=== PATIENT | female | born 1935 | race Caucasian/White ===

== ENCOUNTER 2020-02-04 09:55 | Outpatient (CLI) | payer MEDICARE, SELFPAY ==
[2020-02-04 10:28] LABS: Hematocrit 39.8 % (37.0-47.0); Hemoglobin 12.5 g/dL (12.0-15.0); Mean Corpuscular HGB Conc 31.4 g/dl (32-36); Mean Corpuscular Hemoglobin 28.2 pg (26-34); Mean Corpuscular Volume 89.6 fl (80-100); Mean Platelet Volume 10.9 fl (7.4-10.4); Platelet Count Result 203 k/mm3 (150-375); Red Blood Count 4.44 M/mm3 (4.2-5.4); Red Cell Distribution Width 13.8 % (11.5-14.5); White Blood Count 4.5 K/mm3 (4.5-10.0)
[2020-02-04 10:46] LABS: Alanine Aminotransferase 15 U/L (4-35); Albumin Level 4.3 g/dL (3.5-5.1); Alkaline Phosphatase 65 U/L (38-126); Anion Gap 4 mmol/L (8-16); Aspartate Amino Transferase 29 U/L (14-36); Bilirubin,Total 0.8 mg/dL (0.2-1.3); Blood Urea Nitrogen 22 mg/dL (7-17); Calcium 9.8 mg/dL (8.4-10.2); Carbon Dioxide 32 mmol/L (22-30); Chloride 101 mmol/L (98-107); Estimated Glomerular Filt Rate 43; Glucose 104 mg/dL (65-105); Potassium 4.7 mmol/L (3.4-5.0); Sodium 137 mmol/L (137-145)
[2020-02-04 11:51] LABS: Folic Acid > 20.0 ng/mL (2.76->20)
== END 2020-02-04 09:56 | disposition home or self-care (01) ==
PROVIDERS: PCP Physician Assistant; Visit Provider Physician Assistant
DX: E03.9 Hypothyroidism, unspecified (principal); R53.83 Other fatigue; I10 Essential (primary) hypertension
CPT/HCPCS: 36415; 80053; 82607; 82746; 84439; 84443; 85027

== ENCOUNTER 2020-04-01 17:52 | Emergency (ER) | payer MEDICARE, SELFPAY ==
[2020-04-01] VITALS (10 sets, daily range): BP systolic 142–167; BP diastolic 62–79; PULSE 74–78; RESP 16–18; TEMP 36.6; O2SAT 96–100
--- NOTE | ~2020-04-01 | CT_ITS ---
EXAMINATION: CT pelvis wo con DATE: 04/01/2020 20:12 INDICATION: Pelvic pain post fall TECHNIQUE: High resolution computed tomography (CT) of the pelvis was performed without intravenous c ontrast. Additional sagittal and coronal reconstructions were performed. Automated exposure control a nd iterative reconstruction technique were employed. The dose-length product was 326.88 mGy-cm. COMPARISON: None FINDINGS: Nondisplaced fractures of the left superior and inferior pubic rami, the superior pubic ramus fractur e extending to the pubic body. No other fractures identified. Partially visualized lumbar dextroscoli osis with severe lower lumbar spondylosis. Mild bilateral hip and sacroiliac osteoarthritis. Changes of likely prior appendectomy. There are few diverticula along the descending and sigmoid colon withou t adjacent inflammatory change to suggest diverticulitis. No bowel obstruction. Visualized caudal asp ect of the right kidney and right hepatic lobe are normal. Bladder is normal. The uterus is not ident ified and has likely been surgically resected. No free fluid in the pelvis. Thickening of the left ob turator internus muscle likely representing hematoma related to the fracture. No pathologically enlar ged pelvic or inguinal lymphadenopathy. IMPRESSION: 1. Nondisplaced left superior and inferior pubic rami fractures. Reviewed, dictated and finalized at [facility]. 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
--- NOTE | ~2020-04-01 | XR_ITS ---
EXAMINATION: XR hip LT 2V w AP pelvis DATE: 04/01/2020 18:41 INDICATION: Left hip/groin pain post fall TECHNIQUE: Anteroposterior view of the pelvis and anteroposterior and frog-leg lateral views of the l eft hip were obtained. COMPARISON: CT abdomen and pelvis dated 02/19/2019 FINDINGS: Nondisplaced fractures at the junction of the left superior pubic ramus and pubic body and at the lef t inferior pubic ramus. Lumbar dextroscoliosis with severe lower lumbar spondylosis. Mild polyarticul ar osteoarthritis at the bilateral hip and sacroiliac joints. Cholecystectomy clips in right upper qu adrant. IMPRESSION: 1. Minimally displaced fractures at the left inferior pubic ramus and junction of the left superior r amus and pubic body. Reviewed, dictated and finalized at location . 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 Minimally displaced fractures at the left inferior pubic ramus and junction of the left superior ramus and pubic body.
--- NOTE | 2020-04-01 18:45 | PC.NURSE ---
patient brought back to ED room 4 with c/o left leg pain after ground level fall today in her home. see triage notes. alert. oriented. assessments documented. waiting for further orders from provider.
[2020-04-01] MEDS: MORPHINE SULFATE (*CRX) 4 MG/ML INJ IV PUSH ×2 (20:05→20:50)
--- NOTE | 2020-04-01 20:06 | PC.NURSE ---
SL inserted. morphine given as ordered. patient to CT via stretcher. patient and daughter updated on current treatment plan.
--- NOTE | 2020-04-01 20:10 | ED.LOWEXIN ---
HPI - Extremity Injury (Lower) General Chief Complaint: Extremity Injury, Lower Stated Complaint: FALL-HIP PAIN Time Seen by Provider: 04/01/20 19:14 History of Present Illness HPI Narrative: Patient is a 84-year-old female that presents the emergency department with chief complaint of left hip pain. Patient reports that she slipped on a piece of paper on the floor and landed on the ground. The patient reports she has no lacerations denies head pain denies neck pain denies loss of consciousness. Patient states she has pain that is worse with movement in her left leg feels that the pain localizes to her left groin. Patient denies shortening and rotation of her lower extremity Related Data Home Medications Medication Instructions Recorded Confirmed calcium carbonate 600 mg(1,500 1 tablet PO DAILY 07/24/19 02/03/20 mg)-vitamin D3 800 unit chewable tablet Allergies Allergy/AdvReac Type Severity Reaction Status Date / Time Sulfa (Sulfonamide Allergy Severe Swelling Verified 02/11/20 13:25 Antibiotics) aspirin Allergy Unknown stomach Verified 02/11/20 13:25 pain- Adult ASA ciprofloxacin Allergy Unknown nausea/vomi Verified 02/11/20 13:25 t metronidazole Allergy Unknown nausea/vomi Verified 02/11/20 13:25 t naproxen Allergy Unknown nausea/vomi Verified 02/11/20 13:25 t Penicillins Allergy Unknown ,swelling, Verified 02/11/20 13:25 vomit propoxyphene Allergy Unknown nausea/vomi Verified 02/11/20 13:25 t Review of Systems Review of Systems: Narrative: CONSTITUTIONAL: Denies fever, chills, or sweats. EYES: Denies visual changes, redness, or discharge. ENT: Denies rhinorrhea, congestion, sore throat, or otalgia. CARDIOVASCULAR: Denies chest pain, palpitations, or edema. RESPIRATORY: Denies cough or dyspnea. GASTROINTESTINAL: Denies abdominal pain, nausea, vomiting, or diarrhea. GENITOURINARY: Denies dysuria or hematuria. SKIN: Denies rash or itching. MUSCULOSKELETAL: Denies back pain, joint pain, or myalgia. NEUROLOGIC: Denies headache, numbness, or weakness. PSYCHIATRIC: Denies anxiety or depression. All systems reviewed & are unremarkable except as noted in HPI and below PMFSH Family History Family History Father Patient's father is in good health Sibling Patient's sister is in good health Patient's brother is in good health Mother Cerebrovascular accident Social History Social History Smoking packs per day: 1 Smoking cigarettes per day: 20.0 Years smoked: 20 Smoking pack-years: 20.00 Smoking status: Former smoker Second hand tobacco smoke exposure: No Smoking end date: 05/15/06 Alcohol intake: never Substance use: never Comments Patient has history of peripheral neuropathy and hypertension Social history the patient lives at home with her Exam Narrative: Exam Narrative: GENERAL: Well-appearing, well-nourished, and in no acute distress. HEAD: Normocephalic, atraumatic. EYES: PERRLA and EOMI. ENT: Nares clear, no rhinorrhea or epistaxis. Mucous membranes moist. NECK: Supple. CHEST: Clear to auscultation. No respiratory distress. HEART: Regular rate and rhythm. No murmur heard. Normal peripheral pulses. ABDOMEN: Soft, nontender, nondistended, normal active bowel sounds. EXTREMITIES: Normal range of motion. No edema. Patient has tenderness to palpation in the left pelvic region SKIN: Warm, dry, no rash. NEURO: No focal deficits. Alert and oriented x3. PSYCH: Normal mood and affect. Course Course Emergency Course: Plain film x-rays of the left hip showed a fracture of the pelvis but showed no hip fracture, CT scan of the pelvis showed a inferior and superior pubic rami fracture but no other fractures present Patient was able to ambulate without difficulty Vital Signs Vital signs: Vital Signs Temperature
--- NOTE | 2020-04-01 21:27 | PC.NURSE ---
patient up with assist x 1. ambulated approximately 10 feet with walker. gait appears steady. c/o increased pain. back sitting on stretcher.
--- NOTE | 2020-04-01 21:40 | PC.NURSE ---
patient ambulated to restroom and back to room with walker. gait steady. tolerated well.
== END 2020-04-01 22:06 | disposition home or self-care (01) ==
PROVIDERS: Emergency Provider Emergency Medicine; PCP Physician Assistant
DX: S32.509A Unspecified fracture of unspecified pubis, initial encounter for closed fracture (principal); W18.31XA Fall on same level due to stepping on an object, initial encounter
CPT/HCPCS: 72192; 73502; 96374; 96376; 99284; J2270

== ENCOUNTER 2020-05-27 12:22 | Outpatient (CLI) | payer MEDICARE, SELFPAY ==
--- NOTE | ~2020-05-27 | XR_ITS ---
EXAMINATION: XR hip BI 2V w AP pelvis EXAM DATE: 05/27/2020 12:48 INDICATION: Follow-up to pelvic fractures. TECHNIQUE: Each hip imaged independently (separate right and also left hip) 'frog leg' and frontal p rojections for interpretation. Frontal projection pelvis. Comparison is made to prior examination fr 04/01/2020. FINDINGS: No radiographic evidence of hip avascular necrosis. Subacute left superior and inferior r ami fractures, some evidence of interval healing. There is mild symmetric bilateral hip primary osteo arthritis. Sacrum, sacroiliac joints, sacral arcuate lines are intact. Calcifications in the pelvis are believed to be phleboliths. IMPRESSION: Healing left rami fractures. Reviewed, dictated and finalized at location B. LER
== END 2020-05-27 12:23 | disposition home or self-care (01) ==
LOC: ANHIMG 12:32
PROVIDERS: PCP Physician Assistant; Visit Provider Physician Assistant
DX: S32.599D Other specified fracture of unspecified pubis, subsequent encounter for fracture with routine healing (principal)
CPT/HCPCS: 73521

== ENCOUNTER 2021-01-11 15:36 | Outpatient (CLI) | payer MEDICARE, SELFPAY ==
--- NOTE | ~2021-01-11 | MM_ITS ---
EXAMINATION: MM screening zulema BI w bree HISTORY: Screening TECHNIQUE: Craniocaudal and mediolateral oblique 3-D tomosynthesis images were obtained and synthetic 2-D images were generated. CAD analysis was submitted and interpreted. COMPARISON: 12/07/2017 BREAST PARENCHYMAL COMPOSITION: There are scattered areas of fibroglandular density. FINDINGS: There is no evidence of suspicious mass, calcification, or architectural distortion to sugg est malignancy in either breast. There has been no suspicious interval change. IMPRESSION: 1. No mammographic evidence of malignancy. 2. Recommend routine screening mammography in one year. BI-RADS Category 1: Negative Reviewed, dictated and finalized at location A.
== END 2021-01-11 15:37 | disposition home or self-care (01) ==
LOC: ANHIMG 15:39
PROVIDERS: PCP Physician Assistant; Visit Provider Advanced Practice Midwife
DX: Z12.31 Encounter for screening mammogram for malignant neoplasm of breast (principal)
CPT/HCPCS: 77063; 77067

== ENCOUNTER 2021-05-12 16:05 | Inpatient (IN) | payer MEDICARE, SELFPAY ==
--- NOTE | ~2021-05-12 | MR_ITS ---
EXAMINATION: MR brain/brain stem wo arthur EXAM DATE: 05/13/2021 11:49 INDICATION: altered mental status. Confusion. TECHNIQUE: Magnetic resonance imaging (MRI) of the brain/brain stem obtained without contrast. Charley villafuerte T1, axial diffusion, gradient echo (T2*), T1, T2, FLAIR sequences obtained. Comparison is made to prior examination from 06/12/2016. FINDINGS: There are no areas of restricted diffusion to suggest acute infarction. There is no acute hemorrhage seen on the T2*, a hemosiderin sensitive sequence. No intraparenchymal brain mass lesion. 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 There is moderate periventricular and subcortical T2/FLAIR signal hype rintensity, nonspecific but probably related to small vessel ischemic disease (microangiopathy). Th ere is ventricular prominence out of proportion to sulci which is suspected most likely central atrop hy rather than hydrocephalus. Normal pressure hydrocephalus cannot be excluded (clinical triad ataxi a/gait disturbance, dementia, urinary incontinence). This is more pronounced than on prior study, as is the microangiopathy. There are no extra-axial collections. Flow voids are seen in the cerebral a rteries on the T2-weighted sequences consistent with their expected patency. The orbits are unremark able. Soft tissue is unremarkable. IMPRESSION: 1. No acute intracranial findings. 2. Dilated ventricles, probably central atrophy but NPH not excludable. 3. Moderate microangiopathy. Reviewed, dictated and finalized at location A. ICAL APPEALS AUDITOR
--- NOTE | ~2021-05-12 | CT_ITS ---
EXAMINATION: CT brain wo con INDICATION: Confusion COMPARISON: 06/11/2016 TECHNIQUE: Standard unenhanced head CT. The dose-length product (DLP) was 605.33 mGy-cm. The mA was a djusted according to patient size. Iterative reconstruction technique was employed. FINDINGS: There is no acute intraparenchymal hemorrhage. No evidence of mass lesion. No evidence of a cute infarction. 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 There is mild ex vacuo enlargement of the right lateral ventricle related to cerebral atrophy. A chronic appearing infarct of the right frontal lobe is new since the comparison examination. There is moderate perivent ricular and subcortical hypodensity probably related to small vessel ischemic disease. There is moder ate prominence of the sulci and ventricles related to cerebral atrophy. Intracranial calcified cerebr al atherosclerosis is noted. There are no extra-axial collections. There is no mass effect or midline shift. Changes in the globes are likely from ocular lens surgery. The visualized sinuses and mastoid air cells are well aerated. IMPRESSION: 1. No acute intracranial abnormality. 2. Age related findings. Reviewed, dictated and finalized at location F. ESMITH
--- NOTE | ~2021-05-12 | XR_ITS ---
EXAMINATION: XR chest 1V portable INDICATION: Confusion TECHNIQUE: Portable AP chest at 1744 hours COMPARISON: 06/11/2016 FINDINGS: There are minimal opacities of the left mid and lower lung zones. No pleural effusion or pn eumothorax is identified. The cardiomediastinal silhouette is normal. IMPRESSION: 1. Minimal opacities of the left mid and lower lung zones, consistent with atelectasis versus pneumon ia. Reviewed, dictated and finalized at location F. ON FOLDER IMPRESSION: 1. Minimal opacities of the left mid and lower lung zones, consistent with atel ectasis versus pneumonia.
[2021-05-12 16:09] VITALS: PULSE 93; RESP 16; TEMP 37.3; O2SAT 99
--- NOTE | 2021-05-12 16:13 | ECG_ITS ---
Measurements Intervals [place] Rate: 92 P: 77 PA: 149 QRS: 38 QRSD: 70 T: 70 QT: 339 QTc: 421 Interpretive Statements SINUS RHYTHM BASELINE ARTIFACT- AVL, V1-V2 NORMAL ECG Electronically Signed On 05-12-2021 19:15:16 HEALTH INFORMATION SYSTEMS TECHNICIAN by Diego Crowley D.O.
[2021-05-12 16:16] VITALS: BP 178/86
[2021-05-12 16:33] LABS: Add Urine Microscopic? YES; Appearance Urine Clear (Clear); Bilirubin Urine Negative (Negative); Blood Urine 1+ (Negative); Color Urine Yellow (Yellow); Glucose Urine UA Negative (Negative); Ketones Urine 1+ mg/dL (Negative); Leukocyte Esterase Ur Negative LEU/UL (Negative); Mucus Urine Rare /lpf; Nitrate Urine Negative (Negative); Protein Urine 3+ mg/dL (Negative); RBC Urine 0-2 /hpf (0-2); Squamous Epithelial Cell Urine Rare /hpf (Few); Urobilinogen Urine Negative mg/dL (<2.0); WBC Urine 0-3 /hpf
--- NOTE | 2021-05-12 16:33 | ED.AMS ---
HPI - Altered Mental Status General Chief Complaint: Altered Mental Status Stated Complaint: AMS Time Seen by Provider: 05/12/21 16:31 Source: patient and family Limitations: altered mental status History of Present Illness HPI narrative: Patient is 86 years old white female lives alone, history of depression, and hypertension, been vaccinated and boosted for Covid. Patient brought to the emergency room by her daughter who noticed that patient is getting gradually more confused over the last 7 days. Today patient have different loose stools on the floor at different parts of the house, was having no clothes on, waiting too short one on each side of her arms. The daughter is not sure if the patient been taking her medication regularly or probably she is taking too much of it.. Currently patient denying any symptoms and would like to go home. Patient's September 2020 Related Data Home Medications Medication Instructions Recorded Confirmed calcium carbonate 600 mg-vitamin 1 tablet PO DAILY 07/24/19 12/11/20 D3 20 mcg (800 unit) chewable tablet Allergies Allergy/AdvReac Type Severity Reaction Status Date / Time Sulfa (Sulfonamide Allergy Severe Swelling Verified 12/09/20 14:59 Antibiotics) aspirin Allergy Unknown stomach Verified 12/09/20 14:59 pain- Adult ASA ciprofloxacin Allergy Unknown nausea/vomi Verified 12/09/20 14:59 t metronidazole Allergy Unknown nausea/vomi Verified 12/09/20 14:59 t naproxen Allergy Unknown nausea/vomi Verified 12/09/20 14:59 t Penicillins Allergy Unknown ,swelling, Verified 12/09/20 14:59 vomit propoxyphene Allergy Unknown nausea/vomi Verified 12/09/20 14:59 t Review of Systems Review of Systems: ROS unobtainable: Yes unobtainable due to mental status PMFSH Family History Family History Father Patient's father is in good health Sibling Patient's sister is in good health Patient's brother is in good health Mother Cerebrovascular accident Social History Social History Smoking packs per day: 1 Smoking cigarettes per day: 20.0 Years smoked: 20 Smoking pack-years: 20.00 Smoking status: Former smoker Second hand tobacco smoke exposure: No Smoking end date: 05/15/06 Alcohol intake: never Substance use: never Exam Narrative: General appearance: Well-developed, well-nourished Skin: Normal color Head: Normocephalic, nontraumatic Eyes: Clear conjunctiva ENT: Oropharynx normal, ears normal, nose normal Neck: Supple, nontender Chest and respiratory: Airway patent, no respiratory distress, no accessory muscle use Heart: Regular rate/rhythm Abdomen: Soft, nontender, no organomegaly, quiet bowel sounds Vascular: Normal peripheral pulses, normal capillary refill. Musculoskeletal: Normal range of motion, nontender back Neurologic: Alert and oriented to her name and age only Course Course Emergency Course: Stable Vital Signs Vital signs: Vital Signs Temperature 37.3 C 05/12/21 16:09 Pulse Rate 93 05/12/21 16:09 Respiratory Rate 16 05/12/21 16:09 Pulse Oximetry 99 05/12/21 16:09 Temperature 37.3 C 05/12/21 16:09 Pulse Rate 93 05/12/21 16:09 Respiratory Rate 16 05/12/21 16:09 Blood Pressure 178/86 H 05/12/21 16:16 Pulse Oximetry 99 05/12/21 16:09 MDM - Altered Mental Status MDM Narrative Medical decision making narrative: Patient lives alone, lost her September 2020, Labs, CT head ordered. Chest x-ray showed atelectasis versus pneumonia. I believe atelectasis is more likely,
[2021-05-12 16:42] LABS: Basophils Percent Auto 0.3 % (0.2-1.2); Hemoglobin 12.1 g/dL (12.0-15.0); Immature Granulocyte Absolute 0.02 K/mm3 (0.00-0.031); Immature Granulocyte Percent A 0.3 % (0-0.5); Lymphocytes Absolute Auto 0.73 K/mm3 (0.9-3.2); Lymphocytes Percent Auto 9.2 % (18.3-44.2); Mean Corpuscular HGB Conc 31.8 g/dl (32-36); Mean Corpuscular Hemoglobin 28.1 pg (26-34); Mean Corpuscular Volume 88.2 fl (80-100); Mean Platelet Volume 10.4 fl (7.4-10.4); Monocytes Absolute Auto 0.6 K/mm3 (0.1-0.6); Monocytes Percent Auto 6.9 % (2.6-8.5); Neutrophils Absolute Auto 6.6 K/mm3 (1.3-6.7); Neutrophils Percent Auto 83.3 % (45.5-73.1); Platelet Count Result 212 k/mm3 (150-375); Red Blood Count 4.31 M/mm3 (4.2-5.4); Red Cell Distribution Width 14.1 % (11.5-14.5)
[2021-05-12 16:45] LABS: Alanine Aminotransferase 15 U/L (4-35); Albumin Level 4.8 g/dL (3.5-5.1); Alkaline Phosphatase 86 U/L (38-126); Anion Gap 12 mmol/L (8-16); Aspartate Amino Transferase 27 U/L (14-36); Bilirubin,Total 1.1 mg/dL (0.2-1.3); Blood Urea Nitrogen 28 mg/dL (7-17); Calcium 9.6 mg/dL (8.4-10.2); Carbon Dioxide 21 mmol/L (22-30); Chloride 102 mmol/L (98-107); Estimated Glomerular Filt Rate 36; Glucose 115 mg/dL (65-110); Potassium 4.1 mmol/L (3.4-5.0); Sodium 135 mmol/L (137-145)
[2021-05-12 16:56] LABS: Prothrombin Time 13.1 Seconds (11.1-14.7)
--- NOTE | 2021-05-12 18:30 | PM.IMHP ---
H&P: HPI History of Present Illness Date/Time: 05/12/21 18:30 Chief Complaint: Altered mental status. Narrative: This is an 86-year-old female with history of TIA, hypertension, COPD, GERD, hypothyroidism, and anxiety who presented to the emergency department earlier today from home for evaluation of altered mental status. She is not able to provide an accurate history given her confusion and as such a majority of the following is obtained via discussions with her daughter Mechelel who is at bedside as well as review of her electronic medical records. The patient is as of September 2020 and she lives in her own ranch [place] [facility] REGGIE. Over the last 1 week or so the patient's family members have notice a change and mentation, for instance she seemed withdrawn at [place] time in seem to just sit there and not interact much with her family. This is apparently quite unusual for the patient. Additionally she has been getting confused regarding time and has been mixing up her days. Mechelle came to take the patient grocery shopping on Monday and they seemed to have a pretty good day. Today she tried calling her mother however the patient didn't answer and when the patient's other daughter stopped in to visit, she found the patient sitting on the couch, confused. The patient reportedly was wearing 2 different shirts with 1 arm in 1 shirt and the other arm in another. She was not wearing pants and she had urinated and defecated on the floor in different parts of the home. Family members also noticed that she has not been feeding her dog or giving him water. Mechelle also found that the patient had opened all of her Efferdent tabs and had thrown them in the toilet. Family members were concerned that perhaps she had a urine infection however her labs, urine, and chest x-ray were fairly unremarkable. Brain CT did not show any acute intracranial abnormalities. Her blood pressures however have been running high, in the 170s to 180 systolic, and vein assumes that she has probably not been taking her medication. She does not think the patient could be over medicating. Patient has not had any recent falls. No sick contacts. At the time my evaluation the patient is only complaint is that of wanting to go home. Review of Systems Review of Systems: Twelve systems were reviewed. She denies headache. No cold or flu symptoms. No chest pain or shortness of breath. No nausea, vomiting, diarrhea, or dysuria. She denies focal weakness and paresthesias. No diplopia. Except as documented, all other systems were reviewed and are negative. [facility] Past Medical History Medical History (Updated 05/12/21 @ 23:15 by Lizzie Mcduffie PA-C) Anxiety Chronic kidney disease, stage 3 Chronic obstructive pulmonary disease Hypertension Surgical History Surgical History (Updated 05/12/21 @ 23:12 by Lizzie Mcduffie PA-C) History of cataract extraction with lens replacement History of cholecystectomy History of hysterectomy History of tonsillectomy Family History Family History (Updated 05/12/21 @ 23:13 by Lizzie Mcduffie PA-C) Father No problems noted. Sibling No problems noted. Mother Cerebrovascular accident Social History Social History (Updated 05/12/21 @ 23:13 by Lizzie Mcduffie PA-C) Social History: Surrogate decision maker: Mechelle Gayle, daughter. Code status: Full code. Smoking packs per day: 1 Smoking cigarettes per day: 20.0 Years smoked: 20 Smoking pack-years: 20.00 Smoking status: Former smoker Second hand tobacco smoke exposure: No Smoking end date: 05/15/06 Alcohol intake: never Substance use: never Additional living arrangements comments: The patient is . She lives in her own home in [place] with her dog. Meds Home Medications and Allergies Home Medications Medication Instructions Recorded Confirmed Type calcium carbonate 600 mg-vitamin 1 tablet PO DAILY 07/24/19 0
[2021-05-12 19:09] VITALS: BP 177/85; PULSE 95; RESP 18; O2SAT 98
[2021-05-12 21:34] VITALS: BP 184/85; PULSE 82; RESP 18; O2SAT 100
--- NOTE | 2021-05-12 22:43 | PC.NURSE ---
attempted to call report no answer
--- NOTE | 2021-05-12 22:55 | PC.NURSE ---
attempted to call report to 3med/surg nurse will have to call back
[2021-05-12 23:37] VITALS: BP 158/80; PULSE 80; RESP 20; O2SAT 94
[2021-05-12 23:50] VITALS: BP 165/75; PULSE 89; RESP 18; TEMP 36.4; O2SAT 96; BMI 24.5
--- NOTE | 2021-05-12 23:59 | ADMGEN ---
This patient, Nicol Fernandez, was admitted to [facility] Surg Room 331-02. Patient/family oriented to hospital policies and general routines including ID bracelet, bed and alarms, visiting hours, pain management, procedures, bathroom and other care routines, personal items, smoking policy, room service/diet, and visiting hours. Information on how to activate the Rapid Response Team has been discussed. Patient/Family are encouraged to report perceived risks to care and to ask questions if they do not understand what they are told or what they should do.
[2021-05-13] VITALS (9 sets, daily range): BP systolic 157–165; BP diastolic 54–85; PULSE 70–85; RESP 16–18; TEMP 36.6–37.6; O2SAT 96–97
[2021-05-13 01:54] LABS: Ammonia < 9 umol/L (9-30)
[2021-05-13 02:58] LABS: Thyroid Stimulating Hormone Reflex 0.769 uIU/mL (0.465-4.68)
[2021-05-13 08:16] LABS: Hematocrit 36.7 % (37.0-47.0); Hemoglobin 11.7 g/dL (12.0-15.0); Mean Corpuscular HGB Conc 31.9 g/dl (32-36); Mean Corpuscular Hemoglobin 27.9 pg (26-34); Mean Corpuscular Volume 87.4 fl (80-100); Mean Platelet Volume 10.7 fl (7.4-10.4); Platelet Count Result 198 k/mm3 (150-375); Red Cell Distribution Width 14.1 % (11.5-14.5); White Blood Count 8.2 K/mm3 (4.5-10.0)
[2021-05-13 08:33] LABS: Alanine Aminotransferase 14 U/L (4-35); Albumin Level 4.3 g/dL (3.5-5.1); Alkaline Phosphatase 81 U/L (38-126); Anion Gap 9 mmol/L (8-16); Aspartate Amino Transferase 29 U/L (14-36); Bilirubin,Total 1.3 mg/dL (0.2-1.3); Blood Urea Nitrogen 28 mg/dL (7-17); Calcium 9.2 mg/dL (8.4-10.2); Carbon Dioxide 25 mmol/L (22-30); Chloride 100 mmol/L (98-107); Estimated CRCL calculation 22 ml/min; Estimated Glomerular Filt Rate 39; Glucose 101 mg/dL (65-110); Magnesium 1.9 mg/dL (1.6-2.3); Sodium 134 mmol/L (137-145)
--- NOTE | 2021-05-13 11:53 | WPDNEURCNPN ---
Assessment and Plan Additional Plan encephalopathy with the possibility of underlying dementia the CT scan of the head has not shown any bleed routine EEG will be obtained to rule out the possibility of subclinical seizures in addition to checking B12 folate and T4 and further recommendation according Consult date: 05/13/21 HPI: Nicol Fernandez is a 86 year old female admitted to the hospital for the complaints of change in the mental status in addition to the ongoing history of 1. Hypertension 2. Depression and with recent observation of increasing confusion over the last 7 days along with the diarrhea the daughter was not sure the patient had been taking her medication regularly or taking too much medication, patient had been on calcium carbonate and vitamin-D chewable in addition she has multiple allergies, history of years smoked 20 with smoking pack years of 20 but former smoker and not alcohol drinker, evaluation in the Emergency Room documented the negative CT scan of the head with no bleed, checks x-ray with the possibility of atelectasis versus pneumonia and EKG normal, patient does have additional history is of COPD, GERD, hypothyroidism, and anxiety. Is unable to provide any accurate history because of the underlying confusion as per the information available patient's daughter came to take her to the grocery shopping on Monday and she had fairly good day and the daughter call the day of admission he did not find any answer and she was increasingly confused Review of Systems Review of Systems: All systems reviewed & are unremarkable except as noted in HPI and below PMFSH Past Medical History Medical History Anxiety Chronic kidney disease, stage 3 Chronic obstructive pulmonary disease Hypertension Surgical History Surgical History History of cataract extraction with lens replacement History of cholecystectomy History of hysterectomy History of tonsillectomy Family History Family History Father No problems noted. Sibling No problems noted. Mother Cerebrovascular accident Social History Social History Social History: Surrogate decision maker: Mechelle Gayle, daughter. Code status: Full code. Smoking packs per day: 1 Smoking cigarettes per day: 20.0 Years smoked: 20 Smoking pack-years: 20.00 Smoking status: Never smoker Second hand tobacco smoke exposure: No Smoking end date: 05/15/06 Alcohol intake: former Substance use: never Additional living arrangements comments: The patient is . She lives in her own home in [place] with her dog. Spiritual care concerns: No Meds Home Medications and Allergies Home Medications Medication Instructions Recorded Confirmed Type losartan 100 1 tablet PO DAILY #90 tablet 03/01/21 05/12/21 Rx mg-hydrochlorothiazide 12.5 mg tablet gabapentin 300 mg capsule 300 mg PO DAILY #90 cap 04/15/21 05/12/21 Rx lorazepam 1 mg tablet 1 mg PO BID PRN #60 tablet 04/15/21 05/12/21 Rx Allergies Allergy/AdvReac Type Severity Reaction Status Date / Time Sulfa (Sulfonamide Allergy Severe Swelling Verified 12/09/20 14:59 Antibiotics) Penicillins Allergy Unknown ,swelling, Verified 12/09/20 14:59 vomit aspirin AdvReac Unknown stomach Verified 05/12/21 19:19 pain- Adult ASA ciprofloxacin AdvReac Unknown nausea/vomi Verified 05/12/21 19:19 t metronidazole AdvReac Unknown nausea/vomi Verified 05/12/21 19:19 t naproxen AdvReac Unknown nausea/vomi Verified 05/12/21 19:19 t propoxyphene AdvReac Unknown nausea/vomi Verified 05/12/21 19:19 t Vital Signs Vital Signs - 24 hr 05/12/21 16:09 05/12/21 16:16 05/12/21 19:09 Temperature 37.3 C Pulse Rate 93 95 Respiratory Rate 16 18 Blo
--- NOTE | 2021-05-13 15:03 | PM.IMPN ---
Progress Note: A&P Assessment and Plan (1) Altered mental status: Qualifiers: Altered mental status type: unspecified Qualified Code(s): R41.82 - Altered mental status, unspecified Code(s): R41.82 - Altered mental status, unspecified Status: Acute Assessment and Plan: Gradual development over the past week or so. She has no history of dementia. Workup showed no evidence to suggest underlying infection. I suppose the patient could be taking too much of her medication however it seems like the opposite and daughter does not believe that she has been taking her medication. Her blood pressures have been running high thus I suppose hypertensive encephalopathy is also consideration. Urine drug screen pending Ammonia level normal TSH normal MRI with no acute findings cortical atrophy noted possible underlying dementia EEG has been ordered Neurology consulted (2) Hypertension: Code(s): I10 - Essential (primary) hypertension Status: Acute Assessment and Plan: Poorly controlled with systolic blood pressures in the 170s to 180s at this time. It is likely that she has not been taking her antihypertensives. Her medication will be reviewed and resumed as appropriate. Monitor blood pressures closely. Blood pressure is stable today (3) Chronic obstructive pulmonary disease: Code(s): J44.9 - Chronic obstructive pulmonary disease, unspecified Status: Acute Assessment and Plan: No evidence of exacerbation. Continue Symbicort. (4) Anxiety: Code(s): F41.9 - Anxiety disorder, unspecified Status: Acute Assessment and Plan: Patient takes lorazepam 1 mg twice daily as needed. (5) Chronic kidney disease, stage 3: Code(s): N18.30 - Chronic kidney disease, stage 3 unspecified Status: Acute Assessment and Plan: Creatinine is stable or may be a bit higher than what it typically runs. She appears a bit dry on exam thus will give her L of fluids overnight. Renal function stable encourage p.o. intake Subjective Date/time seen: 05/13/21 15:03 Interval history: HPI:This is an 86-year-old female with history of TIA, hypertension, COPD, GERD, hypothyroidism, and anxiety who presented to the emergency department earlier today from home for evaluation of altered mental status. She is not able to provide an accurate history given her confusion and as such a majority of the following is obtained via discussions with her daughter Mechelle who is at bedside as well as review of her electronic medical records. The patient is as of September 2020 and she lives in her own ranch style home with her jazmin tzu named REGGEI. Over the last 1 week or so the patient's family members have notice a change and mentation, for instance she seemed withdrawn at [place] time in seem to just sit there and not interact much with her family. This is apparently quite unusual for the patient. Additionally she has been getting confused regarding time and has been mixing up her days. Mechelle came to take the patient grocery shopping on Monday and they seemed to have a pretty good day. Today she tried calling her mother however the patient didn't answer and when the patient's other daughter stopped in to visit, she found the patient sitting on the couch, confused. The patient reportedly was wearing 2 different shirts with 1 arm in 1 shirt and the other arm in another. She was not wearing pants and she had urinated and defecated on the floor in different parts of the home. Family members also noticed that she has not been feeding her dog or giving him water. Mechelle also found that the patient had opened all of her Efferdent tabs and had thrown them in the toilet. Family members were concerned that perhaps she had a urine infection however her labs, urine, and chest x-ray were fairly unremarkable. Brain CT did not show any acute intracranial abnormalities. Her blood pressures however have been running high, i
[2021-05-13 18:39] LABS: Amphetamine Screen Urine Negative (Negative); Barbiturate Screen Urine Negative (Negative); Benzodiazepines Screen Urine Negative (Negative); Cannabinoid Screen Urine Negative (Negative); Cocaine Screen Urine Negative (Negative); Methadone Screen Urine Negative (Negative); Opiate Screen Urine Negative (Negative); Phencyclidine Screen Urine Negative (Negative)
[2021-05-14] VITALS (9 sets, daily range): BP systolic 152–173; BP diastolic 52–62; PULSE 68–113; RESP 14–20; TEMP 37.3–37.5; O2SAT 95–97
[2021-05-14] MEDS: hydroCHLOROthiazide 12.5 MG CAPSULE PO (07:49)
[2021-05-14] MEDS: GABAPENTIN 300 MG CAPSULE PO (07:49)
[2021-05-14] MEDS: LOSARTAN POTASSIUM 100 MG TABLET PO (07:50)
--- NOTE | 2021-05-14 12:08 | PM.IMPN ---
Progress Note: A&P Assessment and Plan (1) Altered mental status: Qualifiers: Altered mental status type: unspecified Qualified Code(s): R41.82 - Altered mental status, unspecified Code(s): R41.82 - Altered mental status, unspecified Status: Acute Assessment and Plan: Gradual development over the past week or so. She has no history of dementia. Workup showed no evidence to suggest underlying infection. I suppose the patient could be taking too much of her medication however it seems like the opposite and daughter does not believe that she has been taking her medication. Her blood pressures have been running high thus I suppose hypertensive encephalopathy is also consideration. Urine drug screen pending Ammonia level normal TSH normal MRI with no acute findings cortical atrophy noted possible underlying dementia EEG has been ordered Neurology consulted (2) Hypertension: Code(s): I10 - Essential (primary) hypertension Status: Acute Assessment and Plan: Poorly controlled with systolic blood pressures in the 170s to 180s at this time. It is likely that she has not been taking her antihypertensives. Her medication will be reviewed and resumed as appropriate. Monitor blood pressures closely. Blood pressure is stable today (3) Chronic obstructive pulmonary disease: Code(s): J44.9 - Chronic obstructive pulmonary disease, unspecified Status: Acute Assessment and Plan: No evidence of exacerbation. Continue Symbicort. (4) Anxiety: Code(s): F41.9 - Anxiety disorder, unspecified Status: Acute Assessment and Plan: Patient takes lorazepam 1 mg twice daily as needed. (5) Chronic kidney disease, stage 3: Code(s): N18.30 - Chronic kidney disease, stage 3 unspecified Status: Acute Assessment and Plan: 05/14/2021 MRI report noted will continue current treatment. Continue physical therapy Case coordination consult for placement. Subjective Date/time seen: 05/14/21 12:08 Interval history: HPI:This is an 86-year-old female with history of TIA, hypertension, COPD, GERD, hypothyroidism, and anxiety who presented to the emergency department earlier today from home for evaluation of altered mental status. She is not able to provide an accurate history given her confusion and as such a majority of the following is obtained via discussions with her daughter Mechelle who is at bedside as well as review of her electronic medical records. The patient is as of September 2020 and she lives in her own ranch style home with her [facility] REGGIE. Over the last 1 week or so the patient's family members have notice a change and mentation, for instance she seemed withdrawn at [place] time in seem to just sit there and not interact much with her family. This is apparently quite unusual for the patient. Additionally she has been getting confused regarding time and has been mixing up her days. Mechelle came to take the patient grocery shopping on Monday and they seemed to have a pretty good day. Today she tried calling her mother however the patient didn't answer and when the patient's other daughter stopped in to visit, she found the patient sitting on the couch, confused. The patient reportedly was wearing 2 different shirts with 1 arm in 1 shirt and the other arm in another. She was not wearing pants and she had urinated and defecated on the floor in different parts of the home. Family members also noticed that she has not been feeding her dog or giving him water. Mechelle also found that the patient had opened all of her Efferdent tabs and had thrown them in the toilet. Family members were concerned that perhaps she had a urine infection however her labs, urine, and chest x-ray were fairly unremarkable. Brain CT did not show any acute intracranial abnormalities. Her blood pressures however have been running high, in the 170s to 180 systolic, and vein assumes that she has prob
[2021-05-15] VITALS (7 sets, daily range): BP systolic 137–147; BP diastolic 65–72; PULSE 60–76; RESP 14–18; TEMP 35.8–36.8; O2SAT 95–100
[2021-05-15] MEDS: LOSARTAN POTASSIUM 100 MG TABLET PO (08:53)
[2021-05-15] MEDS: hydroCHLOROthiazide 12.5 MG CAPSULE PO (08:53)
[2021-05-15] MEDS: GABAPENTIN 300 MG CAPSULE PO (08:53)
--- NOTE | 2021-05-15 13:24 | WPDNEUROPN ---
Progress Note: A&P Additional Plan stable Subjective Date/time seen: 05/15/21 13:24 86 years old with ongoing dementia and multiple medical problems as outlined before, remains unchanged Review of Systems Review of Systems: All systems reviewed & are unremarkable except as noted in HPI and below Exam Narrative: arousable in no obvious acute distress, normocephalic with no restriction of the movement of the neck heart regular with no murmur lungs clear with no rhonchi or crepitations abdomen is soft neurologically arouses follow the instruction the cranial examination is normal speech is not dysphasic not dysarthric motor examination revealed her to have no drift of 1 side of the side tone normal reflexes symmetrical and plantars downgoing Objective Data Vital Signs Vital Signs: Vital Signs - 24 hr 05/14/21 14:00 05/14/21 16:00 05/14/21 20:00 Temperature 37.3 C Pulse Rate 86 77 81 Respiratory Rate 14 Blood Pressure 153/62 H Pulse Oximetry 96 05/14/21 22:00 05/15/21 00:00 05/15/21 06:00 Temperature 37.5 C 36.4 C L Pulse Rate 73 73 73 Respiratory Rate 20 16 Blood Pressure 152/52 H 147/67 H Pulse Oximetry 97 100 Intake/Output Intake/Output: Intake & Output 05/12/21 05/13/21 05/14/21 05/15/21 23:59 23:59 23:59 23:59 Intake Total 320 820 240 Output Total 200 Balance 120 820 240 Meds/Results Medications: Active Medications Generic Name Dose Route Start Last Admin Trade Name Freq PRN Reason Stop Dose Admin Gabapentin 300 mg 05/14/21 09:00 05/15/21 08:53 Gabapentin 300 Mg Capsule PO 300 mg DAILY LJ Administration Hydralazine HCl 10 mg 05/12/21 23:20 Hydralazine Hcl 20 Mg/Ml Vial IV PUSH Q6H PRN SBP > 165 or DBP > 105 Hydrochlorothiazide 12.5 mg 05/14/21 09:00 05/15/21 08:53 Hydrochlorothiazide 12.5 Mg Capsule PO 06/13/21 08:59 12.5 mg DAILY LJ Administration Lorazepam 1 mg 05/13/21 15:07 Lorazepam (*Crx) 1 Mg Tablet PO BID PRN anxiety Losartan Potassium 100 mg 05/14/21 09:00 05/15/21 08:53 Losartan Potassium 100 Mg Tablet PO 06/13/21 08:59 100 mg DAILY LJ Administration Radiology Results: ITS Impressions Head CT 05/12/21 16:51 IMPRESSION: 1. No acute intracranial abnormality. 2. Age related findings. Chest X-Ray 05/12/21 18:07 IMPRESSION: 1. Minimal opacities of the left mid and lower lung zones, consistent with atelectasis versus pneumonia. Brain MRI 05/13/21 12:09 IMPRESSION: 1. No acute intracranial findings. 2. Dilated ventricles, probably central atrophy but NPH not excludable. 3. Moderate microangiopathy. Quality VTE Prophylaxis VTE prophylaxis: mechanical ordered Am Follow-up Billing Inpatient Follow-up [id number] [facility]
--- NOTE | 2021-05-15 16:18 | PM.IMPN ---
Progress Note: A&P Assessment and Plan (1) Altered mental status: Qualifiers: Altered mental status type: unspecified Qualified Code(s): R41.82 - Altered mental status, unspecified Code(s): R41.82 - Altered mental status, unspecified Status: Acute Assessment and Plan: Gradual development over the past week or so. She has no history of dementia. Workup showed no evidence to suggest underlying infection. I suppose the patient could be taking too much of her medication however it seems like the opposite and daughter does not believe that she has been taking her medication. Her blood pressures have been running high thus I suppose hypertensive encephalopathy is also consideration. Urine drug screen pending Ammonia level normal TSH normal MRI with no acute findings cortical atrophy noted possible underlying dementia EEG has been ordered Neurology consulted appreciate his recommendation discussed with the family concern for seizure due to acute onset confusional state with stool and urine incontinence (2) Hypertension: Code(s): I10 - Essential (primary) hypertension Status: Acute Assessment and Plan: Poorly controlled with systolic blood pressures in the 170s to 180s at this time. It is likely that she has not been taking her antihypertensives. Her medication will be reviewed and resumed as appropriate. Monitor blood pressures closely. Blood pressure is stable today (3) Chronic obstructive pulmonary disease: Code(s): J44.9 - Chronic obstructive pulmonary disease, unspecified Status: Acute Assessment and Plan: No evidence of exacerbation. Continue Symbicort. (4) Anxiety: Code(s): F41.9 - Anxiety disorder, unspecified Status: Acute Assessment and Plan: Patient takes lorazepam 1 mg twice daily as needed. (5) Chronic kidney disease, stage 3: Code(s): N18.30 - Chronic kidney disease, stage 3 unspecified Status: Acute Assessment and Plan: 05/14/2021 MRI report noted will continue current treatment. Continue physical therapy Case coordination consult for placement. Subjective Date/time seen: 05/15/21 16:18 Interval history: HPI:This is an 86-year-old female with history of TIA, hypertension, COPD, GERD, hypothyroidism, and anxiety who presented to the emergency department earlier today from home for evaluation of altered mental status. She is not able to provide an accurate history given her confusion and as such a majority of the following is obtained via discussions with her daughter Mechelle who is at bedside as well as review of her electronic medical records. The patient is as of September 2020 and she lives in her own ranch style home with her jazmin tzu named REGGIE. Over the last 1 week or so the patient's family members have notice a change and mentation, for instance she seemed withdrawn at [place] time in seem to just sit there and not interact much with her family. This is apparently quite unusual for the patient. Additionally she has been getting confused regarding time and has been mixing up her days. Mechelle came to take the patient grocery shopping on Monday and they seemed to have a pretty good day. Today she tried calling her mother however the patient didn't answer and when the patient's other daughter stopped in to visit, she found the patient sitting on the couch, confused. The patient reportedly was wearing 2 different shirts with 1 arm in 1 shirt and the other arm in another. She was not wearing pants and she had urinated and defecated on the floor in different parts of the home. Family members also noticed that she has not been feeding her dog or giving him water. Mechelle also found that the patient had opened all of her Efferdent tabs and had thrown them in the toilet. Family members were concerned that perhaps she had a urine infection however her labs, urine, and chest x-ray were fairly unremarkable. Brain CT did not show any ac
[2021-05-16 08:13] LABS: Basophils Percent Auto 0.3 % (0.2-1.2); Hematocrit 39.3 % (37.0-47.0); Hemoglobin 12.9 g/dL (12.0-15.0); Immature Granulocyte Absolute 0.05 K/mm3 (0.00-0.031); Immature Granulocyte Percent A 0.5 % (0-0.5); Mean Corpuscular HGB Conc 32.8 g/dl (32-36); Mean Corpuscular Hemoglobin 28.2 pg (26-34); Mean Platelet Volume 11.2 fl (7.4-10.4); Monocytes Percent Auto 9.1 % (2.6-8.5); Neutrophils Percent Auto 81.1 % (45.5-73.1); Platelet Count Result 195 k/mm3 (150-375); Red Blood Count 4.57 M/mm3 (4.2-5.4); Red Cell Distribution Width 13.5 % (11.5-14.5); White Blood Count 11.1 K/mm3 (4.5-10.0)
[2021-05-16 08:26] LABS: Alanine Aminotransferase 15 U/L (4-35); Albumin Level 4.2 g/dL (3.5-5.1); Alkaline Phosphatase 81 U/L (38-126); Anion Gap 13 mmol/L (8-16); Aspartate Amino Transferase 32 U/L (14-36); Bilirubin,Total 1.5 mg/dL (0.2-1.3); Blood Urea Nitrogen 35 mg/dL (7-17); Calcium 9.1 mg/dL (8.4-10.2); Carbon Dioxide 24 mmol/L (22-30); Chloride 90 mmol/L (98-107); Estimated CRCL calculation 22 ml/min; Estimated Glomerular Filt Rate 39; Glucose 116 mg/dL (65-110); Magnesium 2.1 mg/dL (1.6-2.3); Potassium 3.6 mmol/L (3.4-5.0); Sodium 127 mmol/L (137-145)
[2021-05-16] MEDS: GABAPENTIN 300 MG CAPSULE PO (09:06)
[2021-05-16] MEDS: LOSARTAN POTASSIUM 100 MG TABLET PO (09:06)
[2021-05-16] MEDS: hydroCHLOROthiazide 12.5 MG CAPSULE PO (09:06)
--- NOTE | 2021-05-16 13:55 | PM.IMPN ---
Progress Note: A&P Assessment and Plan (1) Altered mental status: Qualifiers: Altered mental status type: unspecified Qualified Code(s): R41.82 - Altered mental status, unspecified Code(s): R41.82 - Altered mental status, unspecified Status: Acute Assessment and Plan: Gradual development over the past week or so. She has no history of dementia. Workup showed no evidence to suggest underlying infection. I suppose the patient could be taking too much of her medication however it seems like the opposite and daughter does not believe that she has been taking her medication. Her blood pressures have been running high thus I suppose hypertensive encephalopathy is also consideration. Urine drug screen pending Ammonia level normal TSH normal MRI with no acute findings cortical atrophy noted possible underlying dementia EEG has been ordered Neurology consulted appreciate his recommendation discussed with the family concern for seizure due to acute onset confusional state with stool and urine incontinence EEG in a.m. Poor p.o. intake will give IV fluids sodium level has been down to 127 today recheck in the morning (2) Hypertension: Code(s): I10 - Essential (primary) hypertension Status: Acute Assessment and Plan: Poorly controlled with systolic blood pressures in the 170s to 180s at this time. It is likely that she has not been taking her antihypertensives. Her medication will be reviewed and resumed as appropriate. Monitor blood pressures closely. Blood pressure is stable today (3) Chronic obstructive pulmonary disease: Code(s): J44.9 - Chronic obstructive pulmonary disease, unspecified Status: Acute Assessment and Plan: No evidence of exacerbation. Continue Symbicort. (4) Anxiety: Code(s): F41.9 - Anxiety disorder, unspecified Status: Acute Assessment and Plan: Patient takes lorazepam 1 mg twice daily as needed. (5) Chronic kidney disease, stage 3: Code(s): N18.30 - Chronic kidney disease, stage 3 unspecified Status: Acute Assessment and Plan: 05/14/2021 MRI report noted will continue current treatment. Continue physical therapy Case coordination consult for placement. (6) Hyponatremia: Code(s): E87.1 - Hypo-osmolality and hyponatremia Status: Acute Assessment and Plan: Start normal saline recheck in a.m. (7) Urine culture positive: Code(s): R82.79 - Other abnormal findings on microbiological examination of urine Status: Acute Assessment and Plan: Enterococcus more than 100,000 UA was not suggestive of any infection With recheck UA and culture Likely could be contamination as well due to improper collection Subjective Date/time seen: 05/16/21 13:55 Interval history: HPI:This is an 86-year-old female with history of TIA, hypertension, COPD, GERD, hypothyroidism, and anxiety who presented to the emergency department earlier today from home for evaluation of altered mental status. She is not able to provide an accurate history given her confusion and as such a majority of the following is obtained via discussions with her daughter Mechelle who is at bedside as well as review of her electronic medical records. The patient is as of September 2020 and she lives in her own ranch [place] [facility] . Over the last 1 week or so the patient's family members have notice a change and mentation, for instance she seemed withdrawn at [place] time in seem to just sit there and not interact much with her family. This is apparently quite unusual for the patient. Additionally she has been getting confused regarding time and has been mixing up her days. Mechelle came to take the patient grocery shopping on Monday and they seemed to have a pretty good day. Today she tried calling her mother however the patient didn't answer and when the patient's other daughter stopped in to visit, she found the
[2021-05-16 14:00] VITALS: BP 138/75; PULSE 73; RESP 16; TEMP 36.8; O2SAT 96
[2021-05-16] MEDS: SODIUM CHLORIDE 0.9% IV 1,000 ML 75 ML IV CONT (17:51)
[2021-05-16 22:00] VITALS: BP 106/58; PULSE 86; RESP 18; TEMP 36.8; O2SAT 95
[2021-05-17] MEDS: SODIUM CHLORIDE 0.9% IV 1,000 ML 75 ML IV CONT ×2 (02:11→15:39)
[2021-05-17 05:38] VITALS: BP 132/70; PULSE 73; RESP 17; TEMP 36.8; O2SAT 94
[2021-05-17 06:59] LABS: Basophils Percent Auto 0.3 % (0.2-1.2); Hematocrit 36.1 % (37.0-47.0); Hemoglobin 11.9 g/dL (12.0-15.0); Immature Granulocyte Absolute 0.06 K/mm3 (0.00-0.031); Immature Granulocyte Percent A 0.5 % (0-0.5); Lymphocytes Absolute Auto 0.64 K/mm3 (0.9-3.2); Lymphocytes Percent Auto 5.6 % (18.3-44.2); Mean Corpuscular Hemoglobin 27.9 pg (26-34); Mean Corpuscular Volume 84.7 fl (80-100); Mean Platelet Volume 11.4 fl (7.4-10.4); Monocytes Percent Auto 8.4 % (2.6-8.5); Neutrophils Absolute Auto 9.7 K/mm3 (1.3-6.7); Neutrophils Percent Auto 85.2 % (45.5-73.1); Platelet Count Result 191 k/mm3 (150-375); Red Blood Count 4.26 M/mm3 (4.2-5.4); Red Cell Distribution Width 13.6 % (11.5-14.5); White Blood Count 11.4 K/mm3 (4.5-10.0)
[2021-05-17 07:11] LABS: Alanine Aminotransferase 16 U/L (4-35); Albumin Level 3.7 g/dL (3.5-5.1); Alkaline Phosphatase 73 U/L (38-126); Anion Gap 9 mmol/L (8-16); Aspartate Amino Transferase 27 U/L (14-36); Bilirubin,Total 1.2 mg/dL (0.2-1.3); Blood Urea Nitrogen 41 mg/dL (7-17); Calcium 8.6 mg/dL (8.4-10.2); Carbon Dioxide 27 mmol/L (22-30); Chloride 93 mmol/L (98-107); Estimated CRCL calculation 19 ml/min; Estimated Glomerular Filt Rate 33; Glucose 136 mg/dL (65-110); Potassium 3.3 mmol/L (3.4-5.0); Sodium 129 mmol/L (137-145)
--- NOTE | 2021-05-17 11:04 | WPDNEUROPN ---
Progress Note: A&P Additional Plan will wait for the EEG for further recommendation Subjective Date/time seen: 05/17/21 11:04 86 years old originally seen for 1. Dementia with the possibility of subclinical seizures evaluation up until now documented hemoglobin 11.9 with slowly rising wbc's of 11.4 INR of 1.0 with a PTT 20.0 and chemistry with BUN 41 sodium 129 potassium 3.3 creatinine 1.50 and GFR only 33 UE + protein 3+ and brain MRI with no space-occupying lesion except the dilated ventricle with possible central atrophy but obviously NPH could not be excluded, x-ray chest with possibili and EEG is pending Review of Systems Review of Systems: All systems reviewed & are unremarkable except as noted in HPI and below Objective Data Vital Signs Vital Signs: Vital Signs - 24 hr 05/16/21 14:00 05/16/21 22:00 05/17/21 05:38 Temperature 36.8 C 36.8 C 36.8 C Pulse Rate 73 86 73 Respiratory Rate 16 18 17 Blood Pressure 138/75 106/58 L 132/70 Pulse Oximetry 96 95 94 Intake/Output Intake/Output: Intake & Output 05/14/21 05/15/21 05/16/21 05/17/21 23:59 23:59 23:59 23:59 Intake Total 820 964 809 0959 Balance [phone] [id number] Meds/Results Medications: Active Medications Generic Name Dose Route Start Last Admin Trade Name Freq PRN Reason Stop Dose Admin Gabapentin 300 mg 05/14/21 09:00 05/16/21 09:06 Gabapentin 300 Mg Capsule PO 300 mg DAILY LJ Administration Hydralazine HCl 10 mg 05/12/21 23:20 Hydralazine Hcl 20 Mg/Ml Vial IV PUSH Q6H PRN SBP > 165 or DBP > 105 Hydrochlorothiazide 12.5 mg 05/14/21 09:00 05/16/21 09:06 Hydrochlorothiazide 12.5 Mg Capsule PO 06/13/21 08:59 12.5 mg DAILY LJ Administration Sodium Chloride 1,000 mls @ 75 mls/hr 05/16/21 13:55 05/17/21 02:11 Normal Saline Iv IV CONT 75 mls/hr .[id number] LJ Administration Lorazepam 1 mg 05/13/21 15:07 Lorazepam (*Crx) 1 Mg Tablet PO BID PRN anxiety Losartan Potassium 100 mg 05/14/21 09:00 05/16/21 09:06 Losartan Potassium 100 Mg Tablet PO 06/13/21 08:59 100 mg DAILY LJ Administration Radiology Results: ITS Impressions Head CT 05/12/21 16:51 IMPRESSION: 1. No acute intracranial abnormality. 2. Age related findings. Chest X-Ray 05/12/21 18:07 IMPRESSION: 1. Minimal opacities of the left mid and lower lung zones, consistent with atelectasis versus pneumonia. Brain MRI 05/13/21 12:09 IMPRESSION: 1. No acute intracranial findings. 2. Dilated ventricles, probably central atrophy but NPH not excludable. 3. Moderate microangiopathy. Labs Labs: Laboratory Results - last 24 hr 05/17/21 05/17/21 06:28 06:28 WBC 11.4 H RBC 4.26 Hgb 11.9 L Hct 36.1 L MCV 84.7 MCH 27.9 MCHC 33.0 RDW 13.6 Plt Count 191 MPV 11.4 H Immature Gran % (Auto) 0.5 Neut % (Auto) 85.2 H Lymph % (Auto) 5.6 L Caroline % (Auto) 8.4 Eos % (Auto) 0.0 Baso % (Auto) 0.3 Lymph # (Auto) 0.64 L Caroline # (Auto) 1.0 H Eos # (Auto) 0.0 Baso # (Auto) 0.0 Abs Immat Gran (auto) 0.06 H Absolute Neuts (auto) 9.7 H Absolute Nucleated RBC 0.0 Nucleated RBC % 0.0 Sodium 129 L Potassium 3.3 L Chloride 93 L Carbon Dioxide 27 Anion Gap 9 BUN 41 H Creatinine 1.50 H Estim Creat Clear Calc 19 Estimated GFR 33 L Glucose 136 H Calcium 8.6 Total Bilirubin 1.2 AST 27 ALT 16 Alkaline Phosphatase 73 Total Protein 6.0 L Albumin 3.7 Quality VTE Prophylaxis VTE prophylaxis: mechanical ordered Amg Follow-up Billing Inpatient Follow-up [id number] [facility]
[2021-05-17] MEDS: GABAPENTIN 300 MG CAPSULE PO (11:15)
[2021-05-17] MEDS: hydroCHLOROthiazide 12.5 MG CAPSULE PO (11:15)
[2021-05-17] MEDS: POTASSIUM CHLORIDE 20 MEQ TABLET 40 MEQ PO (11:15)
[2021-05-17] MEDS: LOSARTAN POTASSIUM 100 MG TABLET PO (11:15)
[2021-05-17 14:00] VITALS: BP 136/51; PULSE 82; RESP 17; TEMP 36.3; O2SAT 98
--- NOTE | 2021-05-17 17:05 | PM.IMPN ---
Progress Note: A&P Assessment and Plan (1) Altered mental status: Qualifiers: Altered mental status type: unspecified Qualified Code(s): R41.82 - Altered mental status, unspecified Code(s): R41.82 - Altered mental status, unspecified Status: Acute Assessment and Plan: Gradual development over the past week or so. She has no history of dementia. Workup showed no evidence to suggest underlying infection. I suppose the patient could be taking too much of her medication however it seems like the opposite and daughter does not believe that she has been taking her medication. Her blood pressures have been running high thus I suppose hypertensive encephalopathy is also consideration. Urine drug screen pending Ammonia level normal TSH normal MRI with no acute findings cortical atrophy noted possible underlying dementia EEG has been ordered Neurology consulted appreciate his recommendation discussed with the family concern for seizure due to acute onset confusional state with stool and urine incontinence EEG in a.m. Poor p.o. intake will give IV fluids sodium level has been down to 127 today recheck in the morning 05/17/2021 sodium level slightly up today continues to have poor p.o. intake EEG done today, awaiting report (2) Hypertension: Code(s): I10 - Essential (primary) hypertension Status: Acute Assessment and Plan: Poorly controlled with systolic blood pressures in the 170s to 180s at this time. It is likely that she has not been taking her antihypertensives. Her medication will be reviewed and resumed as appropriate. Monitor blood pressures closely. Blood pressure is stable today (3) Chronic obstructive pulmonary disease: Code(s): J44.9 - Chronic obstructive pulmonary disease, unspecified Status: Acute Assessment and Plan: No evidence of exacerbation. Continue Symbicort. (4) Anxiety: Code(s): F41.9 - Anxiety disorder, unspecified Status: Acute Assessment and Plan: Patient takes lorazepam 1 mg twice daily as needed. (5) Chronic kidney disease, stage 3: Code(s): N18.30 - Chronic kidney disease, stage 3 unspecified Status: Acute Assessment and Plan: 05/14/2021 MRI report noted will continue current treatment. Continue physical therapy Case coordination consult for placement. (6) Hyponatremia: Code(s): E87.1 - Hypo-osmolality and hyponatremia Status: Acute Assessment and Plan: Start normal saline Slightly better today continue normal saline and recheck in a.m. (7) Urine culture positive: Code(s): R82.79 - Other abnormal findings on microbiological examination of urine Status: Acute Assessment and Plan: Enterococcus more than 100,000 UA was not suggestive of any infection With recheck UA and culture Likely could be contamination as well due to improper collection Will straight cath urine sample Leukocytosis has worsened however unclear etiology will get urine sample again for further evaluation Subjective Date/time seen: 05/17/21 17:05 Interval history: HPI:This is an 86-year-old female with history of TIA, hypertension, COPD, GERD, hypothyroidism, and anxiety who presented to the emergency department earlier today from home for evaluation of altered mental status. She is not able to provide an accurate history given her confusion and as such a majority of the following is obtained via discussions with her daughter Mechelle who is at bedside as well as review of her electronic medical records. The patient is as of September 2020 and she lives in her own ranch style home [facility] . Over the last 1 week or so the patient's family members have notice a change and mentation, for instance she seemed withdrawn at [place] time in seem to just sit there and not interact much with her family. This is apparently quite unusual for the patient. Additionally she has been getting con
[2021-05-17 22:00] VITALS: BP 119/96; PULSE 58; RESP 18; TEMP 36.6; O2SAT 97
[2021-05-18 06:00] VITALS: BP 136/82; PULSE 91; RESP 18; TEMP 36.5; O2SAT 95
[2021-05-18] MEDS: SODIUM CHLORIDE 0.9% IV 1,000 ML 75 ML IV CONT (06:11)
[2021-05-18 07:16] LABS: Alanine Aminotransferase 14 U/L (4-35); Albumin Level 3.3 g/dL (3.5-5.1); Alkaline Phosphatase 67 U/L (38-126); Anion Gap 7 mmol/L (8-16); Aspartate Amino Transferase 25 U/L (14-36); Blood Urea Nitrogen 26 mg/dL (7-17); Calcium 8.5 mg/dL (8.4-10.2); Carbon Dioxide 24 mmol/L (22-30); Chloride 99 mmol/L (98-107); Estimated CRCL calculation 23 ml/min; Estimated Glomerular Filt Rate 43; Glucose 116 mg/dL (65-110); Potassium 3.6 mmol/L (3.4-5.0); Sodium 130 mmol/L (137-145)
[2021-05-18 07:30] LABS: Basophils Percent Auto 0.4 % (0.2-1.2); Hematocrit 34.8 % (37.0-47.0); Hemoglobin 11.3 g/dL (12.0-15.0); Immature Granulocyte Absolute 0.03 K/mm3 (0.00-0.031); Immature Granulocyte Percent A 0.3 % (0-0.5); Lymphocytes Absolute Auto 0.84 K/mm3 (0.9-3.2); Lymphocytes Percent Auto 9.1 % (18.3-44.2); Mean Corpuscular HGB Conc 32.5 g/dl (32-36); Mean Corpuscular Hemoglobin 27.8 pg (26-34); Mean Corpuscular Volume 85.7 fl (80-100); Mean Platelet Volume 11.8 fl (7.4-10.4); Monocytes Absolute Auto 0.9 K/mm3 (0.1-0.6); Monocytes Percent Auto 9.9 % (2.6-8.5); Neutrophils Absolute Auto 7.4 K/mm3 (1.3-6.7); Neutrophils Percent Auto 80.3 % (45.5-73.1); Platelet Count Result 183 k/mm3 (150-375); Red Blood Count 4.06 M/mm3 (4.2-5.4); Red Cell Distribution Width 13.7 % (11.5-14.5); White Blood Count 9.2 K/mm3 (4.5-10.0)
[2021-05-18] MEDS: GABAPENTIN 300 MG CAPSULE PO (09:29)
[2021-05-18] MEDS: LOSARTAN POTASSIUM 100 MG TABLET PO (09:29)
[2021-05-18] MEDS: hydroCHLOROthiazide 12.5 MG CAPSULE PO (09:29)
[2021-05-18 14:00] VITALS: BP 144/62; PULSE 81; RESP 18; TEMP 36.6; O2SAT 100
--- NOTE | 2021-05-18 15:05 | PM.IMPN ---
Progress Note: A&P Assessment and Plan (1) Urinary tract infection: Code(s): N39.0 - Urinary tract infection, site not specified Status: Acute Assessment and Plan: Urine culture with growth of >100,000 Enterococcus species Continue IV vancomycin started on 05/17/2020 WBC has normalized Remains afebrile (2) Altered mental status: Qualifiers: Altered mental status type: unspecified Qualified Code(s): R41.82 - Altered mental status, unspecified Code(s): R41.82 - Altered mental status, unspecified Status: Acute Assessment and Plan: Noted to have some episodes of confusion/forgetfulness per granddaughter prior to this but nothing similar to presentation with significant confusion and uncharacteristic behavior Likely metabolic encephalopathy secondary to UTI. TSH and ammonia levels normal Urine drug screen negative MRI with no acute findings She has been seen in consultation by Neurology; EEG is pending (3) Hypertension: Code(s): I10 - Essential (primary) hypertension Status: Acute Assessment and Plan: Blood pressures improved. Last BP 144/62. Continue hydrochlorothiazide and losartan Monitor blood pressure trends and adjust medication regimen as needed (4) Chronic obstructive pulmonary disease: Code(s): J44.9 - Chronic obstructive pulmonary disease, unspecified Status: Acute Assessment and Plan: No evidence of exacerbation. Continue Symbicort. (5) Anxiety: Code(s): F41.9 - Anxiety disorder, unspecified Status: Acute Assessment and Plan: No acute issues Patient takes lorazepam 1 mg twice daily as needed. (6) Chronic kidney disease, stage 3: Code(s): N18.30 - Chronic kidney disease, stage 3 unspecified Status: Acute Assessment and Plan: Renal function remains consistent with baseline Monitor BMP (7) Hyponatremia: Code(s): E87.1 - Hypo-osmolality and hyponatremia Status: Acute Assessment and Plan: Improved with gentle IV fluids. Sodium 130 today Still with relatively poor p.o. intake. Continue gentle IV fluids until oral intake has improved, will decrease to 60 cc/hr Subjective Date/time seen: 05/18/21 15:05 Interval history: Date of service 09/01/2021 Nicol Fernandez is 86-year-old female with a history of CKD, COPD, hypertension, and anxiety who is seen in follow-up for UTI. She is feeling tired today. She was sleeping on my encounter and when I woke her she told me that she has been sleeping for much of the day. She states that she did sleep last night as well. Spoke with her nurse who notes that she has had decreased motivation today to take her medications and has not been getting up out of bed. She is incontinent of urine. The patient denies nausea, vomiting, fever, chills, dizziness, lightheadedness. She does endorse feeling weak. She has a poor appetite and told me that she did eat breakfast this morning but did not eat lunch. Review of Systems Review of Systems: All systems reviewed & are unremarkable except as noted in HPI and below Exam Narrative: Ms. Fernandez is a thin, frail 86-year-old female who is lying supine in bed. She appears comfortable and is in NARD. Neuro: awake, alert and oriented to self and location (did not answer further orientation questions), speech clear, no focal neuro deficits noted HEENMT: normocephalic, atraumatic, EOMI, sclerae anicteric Neck: supple, no lymphadenopathy Respiratory: clear to auscultation bilaterally, nonlabored breathing Cardio: regular rate, regular rhythm with S1-S2 Abdomen: nondistended, normoactive bowel sounds, soft, nontender to palpation Extremities: no edema, erythema, or tenderness to palpation, DP pulses 2+ bilaterally Skin: no rashes or lesions, warm and dry Psych: appropriate mood and affect, judgment and insight fair Objective Data Vital Signs
[2021-05-18 22:00] VITALS: BP 140/69; BP 150/71; PULSE 74; PULSE 78; RESP 16; RESP 18; TEMP 36.7; TEMP 36.9; O2SAT 93; O2SAT 97
[2021-05-19] MEDS: SODIUM CHLORIDE 0.9% IV 1,000 ML 60 ML IV CONT ×2 (00:24→17:32)
[2021-05-19 06:00] VITALS: BP 163/94; PULSE 90; RESP 18; TEMP 36.4; O2SAT 94
[2021-05-19] MEDS: hydroCHLOROthiazide 12.5 MG CAPSULE PO (08:51)
[2021-05-19] MEDS: GABAPENTIN 300 MG CAPSULE PO (08:51)
[2021-05-19] MEDS: LOSARTAN POTASSIUM 100 MG TABLET PO (08:51)
--- NOTE | 2021-05-19 09:13 | P.NEURO_ITS ---
Neurology EEG Report General Information Date of Study: 05/16/21 TEST eeg DIAGNOSIS Possible seizures CONDITION OF RECORDING awake with constant eye movements EEG NUMBER [id number] CLINICAL HISTORY patient is in the hospital for the complaints of change in the mental status. EEG DESCRIPTION Whole record consists of medium to high voltage 3 to 4 hertz per 2nd delta admixed with low to medium voltage 5 to 7 hertz per 2nd theta activity and min imal amount of poorly organized low voltage beta activity. At times the slow activity is more prominent over the right hemispheric linkages. Continuous eye movements are noted throughout the tracing. Hyperventilation not done. Photic stimulation not done. Non paroxysmal. Nonfocal. Nonlateralizing. IMPRESSION Abnormal record due to the presence of excessive amount of theta and delta activity throughout the tracing without evidence of any paroxysmal discharge or significant asymmetry. These abnormalities are suggestive of underlying organic or metabolic encephalopathy or the possibility of neuro degenerative process. Clinical correlation recommended there is no evidence of seizure-like activity.
--- NOTE | 2021-05-19 11:42 | PCPTNOTE ---
Patient refused treatment this session. Patient states I don't want to! I don't want to walk and I don't want to exercise! When asked if she uses a walker or cane at home for gait patient states No I don't! Educated patient in the importance and benefits of participating in therapy to improve mobility, strength, and endurance. Patient voiced understanding stating I know! Patient continued to refuse.
--- NOTE | 2021-05-19 12:52 | P.PNIM_ITS ---
Progress Note: A&P Assessment and Plan (1) Urinary tract infection: Code(s): N39.0 - Urinary tract infection, site not specified Status: Acute Assessment and Plan: Urine culture with growth of >100,000 Enterococcus species * Continue IV vancomycin started on 05/17/2020 * WBC has normalized * Remains afebrile (2) Altered mental status: Qualifiers: Altered mental status type: unspecified Qualified Code(s): R41.82 - Altered mental status, unspecified Code(s): R41.82 - Altered mental status, unspecified Status: Acute Assessment and Plan: Presented with confusion uncharacteristic behavior per patient's granddaughter. Noted to have some episodes of confusion/forgetfulness for some time but nothing similar to presenting symptoms * Likely metabolic encephalopathy secondary to UTI. * TSH and ammonia levels normal * Urine drug screen negative * MRI with no acute findings but evidence of atrophy. * EEG reviewed with abnormal findings most likely marketing sales representative of neurodegenerative changes per Neurology. * Appreciate neurology consultation (3) Hypertension: Code(s): I10 - Essential (primary) hypertension Status: Acute Assessment and Plan: Blood pressures has been fairly well controlled. * Continue hydrochlorothiazide and losartan * Monitor blood pressure trends and adjust medication regimen as needed (4) Chronic obstructive pulmonary disease: Code(s): J44.9 - Chronic obstructive pulmonary disease, unspecified Status: Acute Assessment and Plan: No evidence of exacerbation. * Continue Symbicort. (5) Anxiety: Code(s): F41.9 - Anxiety disorder, unspecified Status: Acute Assessment and Plan: No acute issues * Patient takes lorazepam 1 mg twice daily as needed. (6) Chronic kidney disease, stage 3: Code(s): N18.30 - Chronic kidney disease, stage 3 unspecified Status: Acute Assessment and Plan: Renal function remains consistent with baseline * Monitor BMP - she refused labs today for further monitoring (7) Hyponatremia: Code(s): E87.1 - Hypo-osmolality and hyponatremia Status: Acute Assessment and Plan: Improved with gentle IV fluids. * Sodium 130 yesterday * She has refused repeat labs today. Will attempt to try again this afternoon * Still with relatively poor p.o. intake. Continue gentle IV fluids until oral intake has improved, will decrease to 60 cc/hr. Encourage oral intake (8) Abnormal MRI: Code(s): R93.89 - Abnormal findings on diagnostic imaging of other specified body structures Status: Acute Assessment and Plan: MRI showed dilated ventricles, most likely to be due to central atrophy, though NPH not excludable * MRI findings in combination with EEG most suggestive of neurodegenerative proc ess * Family concerned regarding possible NPH. Discussed with neurology who reports patient could consider outpatient neurosurgery follow up for cisternogram or more conservatively could consider repeat MRI in 3 months Additional Plan Patient refused PT today Subjective Date/time seen: 05/19/21 12:52 Interval history: Date of service 05/19/2021 Nicol Fernandez is 86-year-old female with a history of CKD, COPD, hypertensi on, and anxiety who is seen in follow-up for UTI. She feels well today. She has been watching tv most of the day. She did not get up and participate in therapy today. She tells me she has not been out of bed
--- NOTE | 2021-05-19 12:52 | PM.IMPN ---
Progress Note: A&P Assessment and Plan (1) Urinary tract infection: Code(s): N39.0 - Urinary tract infection, site not specified Status: Acute Assessment and Plan: Urine culture with growth of >100,000 Enterococcus species Continue IV vancomycin started on 05/17/2020 WBC has normalized Remains afebrile (2) Altered mental status: Qualifiers: Altered mental status type: unspecified Qualified Code(s): R41.82 - Altered mental status, unspecified Code(s): R41.82 - Altered mental status, unspecified Status: Acute Assessment and Plan: Presented with confusion uncharacteristic behavior per patient's granddaughter. Noted to have some episodes of confusion/forgetfulness for some time but nothing similar to presenting symptoms Likely metabolic encephalopathy secondary to UTI. TSH and ammonia levels normal Urine drug screen negative MRI with no acute findings but evidence of atrophy. EEG reviewed with abnormal findings most likely physician relations representative of neurodegenerative changes per Neurology. Appreciate neurology consultation (3) Hypertension: Code(s): I10 - Essential (primary) hypertension Status: Acute Assessment and Plan: Blood pressures has been fairly well controlled. Continue hydrochlorothiazide and losartan Monitor blood pressure trends and adjust medication regimen as needed (4) Chronic obstructive pulmonary disease: Code(s): J44.9 - Chronic obstructive pulmonary disease, unspecified Status: Acute Assessment and Plan: No evidence of exacerbation. Continue Symbicort. (5) Anxiety: Code(s): F41.9 - Anxiety disorder, unspecified Status: Acute Assessment and Plan: No acute issues Patient takes lorazepam 1 mg twice daily as needed. (6) Chronic kidney disease, stage 3: Code(s): N18.30 - Chronic kidney disease, stage 3 unspecified Status: Acute Assessment and Plan: Renal function remains consistent with baseline Monitor BMP - she refused labs today for further monitoring (7) Hyponatremia: Code(s): E87.1 - Hypo-osmolality and hyponatremia Status: Acute Assessment and Plan: Improved with gentle IV fluids. Sodium 130 yesterday She has refused repeat labs today. Will attempt to try again this afternoon Still with relatively poor p.o. intake. Continue gentle IV fluids until oral intake has improved, will decrease to 60 cc/hr. Encourage oral intake (8) Abnormal MRI: Code(s): R93.89 - Abnormal findings on diagnostic imaging of other specified body structures Status: Acute Assessment and Plan: MRI showed dilated ventricles, most likely to be due to central atrophy, though NPH not excludable MRI findings in combination with EEG most suggestive of neurodegenerative process Family concerned regarding possible NPH. Discussed with neurology who reports patient could consider outpatient neurosurgery follow up for cisternogram or more conservatively could consider repeat MRI in 3 months Additional Plan Patient refused PT today Subjective Date/time seen: 05/19/21 12:52 Interval history: Date of service 05/19/2021 Nicol Fernandez is 86-year-old female with a history of CKD, COPD, hypertension, and anxiety who is seen in follow-up for UTI. She feels well today. She has been watching tv most of the day. She did not get up and participate in therapy today. She tells me she has not been out of bed. She denies pain, nausea, vomiting, SOB, cough, chest pain, fever, chills. She is incontinent of urine. She tells me she ate a good breakfast today but did not tell me what she ate. She answered my questions appropriately but some she did not respond to. She told me her name, , and knew she was at [facility]. When I asked her the year, she did not respond after quite some time and prompting. When I changed the subject she engaged in conve
[2021-05-19 14:00] VITALS: BP 158/71; PULSE 78; RESP 16; TEMP 36.2; O2SAT 98
[2021-05-19 14:40] LABS: Hematocrit 34.4 % (37.0-47.0); Hemoglobin 11.2 g/dL (12.0-15.0); Mean Corpuscular HGB Conc 32.6 g/dl (32-36); Mean Corpuscular Hemoglobin 28.2 pg (26-34); Mean Corpuscular Volume 86.6 fl (80-100); Platelet Count Result 188 k/mm3 (150-375); Red Blood Count 3.97 M/mm3 (4.2-5.4); Red Cell Distribution Width 13.5 % (11.5-14.5); White Blood Count 9.9 K/mm3 (4.5-10.0)
[2021-05-19 14:53] LABS: Anion Gap 7 mmol/L (8-16); Blood Urea Nitrogen 18 mg/dL (7-17); Calcium 8.5 mg/dL (8.4-10.2); Carbon Dioxide 26 mmol/L (22-30); Chloride 96 mmol/L (98-107); Estimated CRCL calculation 26 ml/min; Estimated Glomerular Filt Rate 47; Glucose 110 mg/dL (65-110); Potassium 3.2 mmol/L (3.4-5.0); Sodium 129 mmol/L (137-145)
[2021-05-19 20:45] VITALS: PULSE 97; RESP 20; O2SAT 94
[2021-05-19 22:00] VITALS: BP 164/78; PULSE 97; RESP 20; TEMP 36.5; O2SAT 94
[2021-05-20 06:00] VITALS: BP 155/71; PULSE 85; RESP 20; TEMP 36.9; O2SAT 94
[2021-05-20 07:34] LABS: Hematocrit 34.5 % (37.0-47.0); Hemoglobin 11.4 g/dL (12.0-15.0); Mean Corpuscular Hemoglobin 28.1 pg (26-34); Mean Corpuscular Volume 85.2 fl (80-100); Mean Platelet Volume 11.3 fl (7.4-10.4); Platelet Count Result 194 k/mm3 (150-375); Red Blood Count 4.05 M/mm3 (4.2-5.4); Red Cell Distribution Width 13.5 % (11.5-14.5); White Blood Count 9.9 K/mm3 (4.5-10.0)
[2021-05-20 07:48] LABS: Anion Gap 6 mmol/L (8-16); Blood Urea Nitrogen 18 mg/dL (7-17); Calcium 8.7 mg/dL (8.4-10.2); Carbon Dioxide 26 mmol/L (22-30); Chloride 97 mmol/L (98-107); Estimated CRCL calculation 26 ml/min; Estimated Glomerular Filt Rate 47; Glucose 117 mg/dL (65-110); Potassium 3.6 mmol/L (3.4-5.0); Sodium 129 mmol/L (137-145)
[2021-05-20] MEDS: hydroCHLOROthiazide 12.5 MG CAPSULE PO (10:48)
[2021-05-20] MEDS: LOSARTAN POTASSIUM 100 MG TABLET PO (10:48)
[2021-05-20] MEDS: GABAPENTIN 300 MG CAPSULE PO (10:48)
[2021-05-20] MEDS: SODIUM CHLORIDE 0.9% IV 1,000 ML 60 ML IV CONT (10:50)
[2021-05-20 11:58] LABS: Sodium 130 mmol/L (137-145)
[2021-05-20 14:00] VITALS: BP 144/83; PULSE 84; RESP 20; TEMP 37.1; O2SAT 97
[2021-05-20 14:06] VITALS: BMI 25.0
--- NOTE | 2021-05-20 14:25 | P.PNIM_ITS ---
Progress Note: A&P Assessment and Plan (1) Urinary tract infection: Code(s): N39.0 - Urinary tract infection, site not specified Status: Acute Assessment and Plan: Urine culture with growth of >100,000 Enterococcus species * Continue IV vancomycin started on 05/17/2020 * WBC has normalized * Remains afebrile (2) Altered mental status: Qualifiers: Altered mental status type: unspecified Qualified Code(s): R41.82 - Altered mental status, unspecified Code(s): R41.82 - Altered mental status, unspecified Status: Acute Assessment and Plan: Presented with confusion and uncharacteristic behavior per patient's granddaughter. Noted to have some episodes of confusion/forgetfulness for some time but nothing similar to presenting symptoms * Likely metabolic encephalopathy secondary to UTI. Mental status has improved. * TSH and ammonia levels normal * Urine drug screen negative * MRI with no acute findings but evidence of atrophy. * EEG reviewed with abnormal findings most likely security representative of neurodegenerative changes per Neurology. Patient likely has underlying dementia * Appreciate neurology consultation (3) Hypertension: Code(s): I10 - Essential (primary) hypertension Status: Acute Assessment and Plan: Blood pressures has been fairly well controlled. * Continue losartan. Hold HCTZ in light of hyponatremia * Monitor blood pressure trends and adjust medication regimen as needed (4) Chronic obstructive pulmonary disease: Code(s): J44.9 - Chronic obstructive pulmonary disease, unspecified Status: Acute Assessment and Plan: No evidence of exacerbation. * Continue Symbicort. * Albuterol prn (5) Anxiety: Code(s): F41.9 - Anxiety disorder, unspecified Status: Acute Assessment and Plan: No acute issues * Patient takes lorazepam 1 mg twice daily as needed. (6) Chronic kidney disease, stage 3: Code(s): N18.30 - Chronic kidney disease, stage 3 unspecified Status: Acute Assessment and Plan: Renal function remains consistent with baseline * Monitor BMP * Creatinine is 1.2 today (7) Hyponatremia: Code(s): E87.1 - Hypo-osmolality and hyponatremia Status: Acute Assessment and Plan: Improved with gentle IV fluids. * Sodium 130 today * Hold HCTZ * Will dc IV fluids. Encourage oral fluid intake (8) Abnormal MRI: Code(s): R93.89 - Abnormal findings on diagnostic imaging of other specified body structures Status: Acute Assessment and Plan: MRI showed dilated ventricles, most likely to be due to central atrophy, though NPH not excludable * MRI findings in combination with EEG most suggestive of neurodegenerative process * Family concerned regarding possible NPH. Discussed with neurology who reports patient could consider outpatient neurosurgery follow up for cisternogram vs LP or more conservatively could consider repeat MRI in 3 months. Discussed with patients granddaughter/POA who would like to continue monitoring and avoid aggressive intervention/workup at this time Additional Plan Discharge planning: considering acute rehab vs hospital swing bed. Screening for [facility] tomorrow. Hopeful discharge tomorrow if continued improvement Subjective Date/time seen: 05/20/21 14:25 Interval history: Date of service 05/20/2021 Nicol Marcos Fernandez is 86-year-old female with a history of CKD, COPD, hypertensi
--- NOTE | 2021-05-20 14:25 | PM.IMPN ---
Progress Note: A&P Assessment and Plan (1) Urinary tract infection: Code(s): N39.0 - Urinary tract infection, site not specified Status: Acute Assessment and Plan: Urine culture with growth of >100,000 Enterococcus species Continue IV vancomycin started on 05/17/2020 WBC has normalized Remains afebrile (2) Altered mental status: Qualifiers: Altered mental status type: unspecified Qualified Code(s): R41.82 - Altered mental status, unspecified Code(s): R41.82 - Altered mental status, unspecified Status: Acute Assessment and Plan: Presented with confusion and uncharacteristic behavior per patient's granddaughter. Noted to have some episodes of confusion/forgetfulness for some time but nothing similar to presenting symptoms Likely metabolic encephalopathy secondary to UTI. Mental status has improved. TSH and ammonia levels normal Urine drug screen negative MRI with no acute findings but evidence of atrophy. 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 Patient likely has underlying dementia Appreciate neurology consultation (3) Hypertension: Code(s): I10 - Essential (primary) hypertension Status: Acute Assessment and Plan: Blood pressures has been fairly well controlled. Continue losartan. Hold HCTZ in light of hyponatremia Monitor blood pressure trends and adjust medication regimen as needed (4) Chronic obstructive pulmonary disease: Code(s): J44.9 - Chronic obstructive pulmonary disease, unspecified Status: Acute Assessment and Plan: No evidence of exacerbation. Continue Symbicort. Albuterol prn (5) Anxiety: Code(s): F41.9 - Anxiety disorder, unspecified Status: Acute Assessment and Plan: No acute issues Patient takes lorazepam 1 mg twice daily as needed. (6) Chronic kidney disease, stage 3: Code(s): N18.30 - Chronic kidney disease, stage 3 unspecified Status: Acute Assessment and Plan: Renal function remains consistent with baseline Monitor BMP Creatinine is 1.2 today (7) Hyponatremia: Code(s): E87.1 - Hypo-osmolality and hyponatremia Status: Acute Assessment and Plan: Improved with gentle IV fluids. Sodium 130 today Hold HCTZ Will dc IV fluids. Encourage oral fluid intake (8) Abnormal MRI: Code(s): R93.89 - Abnormal findings on diagnostic imaging of other specified body structures Status: Acute Assessment and Plan: MRI showed dilated ventricles, most likely to be due to central atrophy, though NPH not excludable MRI findings in combination with EEG most suggestive of neurodegenerative process Family concerned regarding possible NPH. Discussed with neurology who reports patient could consider outpatient neurosurgery follow up for cisternogram vs LP or more conservatively could consider repeat MRI in 3 months. Discussed with patients granddaughter/POA who would like to continue monitoring and avoid aggressive intervention/workup at this time Additional Plan Discharge planning: considering acute rehab vs hospital swing bed. Screening for [facility] swing bed tomorrow. Hopeful discharge tomorrow if continued improvement Subjective Date/time seen: 05/20/21 14:25 Interval history: Date of service 05/20/2021 Nicol Fernandez is 86-year-old female with a history of CKD, COPD, hypertension, and anxiety who is seen in follow-up for UTI with altered mental status. She is doing okay today. She did not want to participate in PT yesterday or having her blood drawn. I asked her about this and she said that she is tired of people telling her things to do. I tried to help her eat some breakfast but she did not want to have anything to eat. She offered no complaints. She denied chest pain, shortness of breath, abdominal pain, nausea/vomiting. Review
[2021-05-20 20:33] LABS: Vancomycin Trough 7.5 ug/mL (10.0-20.0)
[2021-05-20 22:00] VITALS: BP 172/72; PULSE 81; RESP 16; TEMP 37.6; O2SAT 97
[2021-05-21 06:00] VITALS: BP 156/88; PULSE 80; RESP 16; TEMP 37.1; O2SAT 96
[2021-05-21 07:28] LABS: Hematocrit 35.6 % (37.0-47.0); Hemoglobin 11.8 g/dL (12.0-15.0); Mean Corpuscular HGB Conc 33.1 g/dl (32-36); Mean Corpuscular Hemoglobin 28.2 pg (26-34); Mean Corpuscular Volume 85.2 fl (80-100); Mean Platelet Volume 10.9 fl (7.4-10.4); Platelet Count Result 206 k/mm3 (150-375); Red Blood Count 4.18 M/mm3 (4.2-5.4); Red Cell Distribution Width 13.4 % (11.5-14.5); White Blood Count 9.6 K/mm3 (4.5-10.0)
[2021-05-21 07:42] LABS: Anion Gap 10 mmol/L (8-16); Blood Urea Nitrogen 15 mg/dL (7-17); Carbon Dioxide 23 mmol/L (22-30); Chloride 96 mmol/L (98-107); Estimated CRCL calculation 28 ml/min; Estimated Glomerular Filt Rate 53; Glucose 118 mg/dL (65-110); Potassium 3.7 mmol/L (3.4-5.0); Sodium 129 mmol/L (137-145)
[2021-05-21 08:00] VITALS: O2SAT 97
[2021-05-21] MEDS: GABAPENTIN 300 MG CAPSULE PO (09:16)
[2021-05-21] MEDS: LOSARTAN POTASSIUM 100 MG TABLET PO (09:16)
[2021-05-21 12:23] LABS: Sodium 129 mmol/L (137-145)
--- NOTE | 2021-05-21 13:07 | PCNFU ---
Nutrition Follow-Up Complete: Inadequate oral Intake as related to AMS as evidenced by poor po intake reported. Goal: Adequate Intake of at least 75% of meals/supplements Pt. is progressing towards goal. No new goal at this time. Pt current nutrition is a heart healthy diet. Last recorded weight is 59 kg. Recommend re-weighing prior to discharge. Bowel Motility: + BM 05/20/2021 Labs Reviewed: Hgb 11.8, Hct 35.6, Na 129, GFR 53, Glu 118 Meds Noted: Albuterol, Cozaar, Neurontin, Vancomycin Hcl Skin: No skin breakdown at this time. WNL. Additional Notes: Pt. is ordered ensure compact BID providing an additional 220 calories and 9 grams of protein to increase oral intake. She has been refusing most meals per EMR. Spoke with PA about liberalizing pt. diet to allow for more food options. Plan to liberalize diet at this time. Pt. is planning to DC today, 05/20/2021. RD will continue to monitor, weight labs, oral intake every 3 days.
--- NOTE | 2021-05-21 13:42 | PM.DS ---
DS: Admitting Diagnosis Discharge Date 05/21/2021 Admitting Diagnosis Altered mental status DS: Discharge Diagnosis Discharge Diagnosis (1) Urinary tract infection: Code(s): N39.0 - Urinary tract infection, site not specified Status: Acute Assessment and Plan: Urine culture with growth of >100,000 Enterococcus species. Received IV vancomycin for 5 days during admission and will continue vancomycin at [facility] swing bed to complete a 7 day course of antibiotics. White blood cell count normalized. She remained afebrile. (2) Altered mental status: Qualifiers: Altered mental status type: unspecified Qualified Code(s): R41.82 - Altered mental status, unspecified Code(s): R41.82 - Altered mental status, unspecified Status: Acute Assessment and Plan: Presented with confusion and uncharacteristic behavior per patient's granddaughter. Noted to have some episodes of confusion/forgetfulness for some time (though no diagnosis of dementia) but nothing similar to presenting symptoms. Glennie to be metabolic encephalopathy secondary to UTI. Mental status did improve with addition of antibiotics. TSH and ammonia levels normal. Urine drug screen negative. MRI showed no acute findings but did show evidence of atrophy. 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 Suspect patient has some degree of underlying dementia. She was evaluated by Neurology during this admission. (3) Hypertension: Code(s): I10 - Essential (primary) hypertension Status: Acute Assessment and Plan: Blood pressures reviewed and were reasonably controlled. Home losartan-HCTZ was discontinued. Losartan continued as single agent 100 mg daily. Continue to monitor blood pressure at swing bed. (4) Chronic obstructive pulmonary disease: Code(s): J44.9 - Chronic obstructive pulmonary disease, unspecified Status: Acute Assessment and Plan: No evidence of exacerbation. Does not appear to be on any maintenance inhalers at home. Albuterol p.r.n. (5) Anxiety: Code(s): F41.9 - Anxiety disorder, unspecified Status: Acute Assessment and Plan: No acute issues. Patient takes lorazepam 1 mg twice daily as needed. (6) Chronic kidney disease, stage 3: Code(s): N18.30 - Chronic kidney disease, stage 3 unspecified Status: Acute Assessment and Plan: Renal function remained consistent with baseline (7) Hyponatremia: Code(s): E87.1 - Hypo-osmolality and hyponatremia Status: Acute Assessment and Plan: Sodium levels declined 127. She was rehydrated with IV fluids. Sodium improved to 120 9-130 and remained consistent. HCTZ was ultimately discontinued. Urine electrolytes ordered but not collected. Sodium levels will continue to be monitored at swing bed. (8) Abnormal MRI: Code(s): R93.89 - Abnormal findings on diagnostic imaging of other specified body structures Status: Acute Assessment and Plan: MRI showed dilated ventricles, most likely to be due to central atrophy, though NPH not excludable. MRI findings in combination with EEG most suggestive of neurodegenerative process. Family concerned regarding possible NPH. Discussed with neurology who reports patient could consider outpatient neurosurgery follow up for cisternogram vs LP or more conservatively could consider repeat MRI in 3 months. Discussed with patients granddaughter/POA. Offered to facilitate neurology follow-up. She would prefer to follow-up with the patient's PCP and determine plan from there. DS: Summary Hospital Course Hospital Course: Date of admission: 05/12/2021 Date of discharge: 05/21/2021 Nicol Fernandez is 86-year-old female with a history of CKD, COPD, hypertension, and anxiety who presented to the emergency department on 05/12/2021 after being found by h
[2021-05-21 14:00] VITALS: BP 152/73; PULSE 83; RESP 16; TEMP 36.6; O2SAT 98
== END 2021-05-21 16:30 | disposition swing bed (61) | DRG 689 ==
LOC: ANHED 19:01 → ANH3MEDSUR 21:59
PROVIDERS: Family Medicine; Internal Medicine; Physician Assistant; Admitting Provider Internal Medicine; Emergency Provider Emergency Medicine; PCP Physician Assistant; Visit Provider Physician Assistant
DX: N39.0 Urinary tract infection, site not specified (principal); G93.41 Metabolic encephalopathy; B95.2 Enterococcus as the cause of diseases classified elsewhere; F03.90 Unspecified dementia, unspecified severity, without behavioral disturbance, psychotic disturbance, mood disturbance, and anxiety; R93.89 Abnormal findings on diagnostic imaging of other specified body structures; I12.9 Hypertensive chronic kidney disease with stage 1 through stage 4 chronic kidney disease, or unspecified chronic kidney disease; N18.30 Chronic kidney disease, stage 3 unspecified; K21.9 Gastro-esophageal reflux disease without esophagitis; E03.9 Hypothyroidism, unspecified; J44.9 Chronic obstructive pulmonary disease, unspecified; F41.9 Anxiety disorder, unspecified; F32.A Depression, unspecified; R82.79 Other abnormal findings on microbiological examination of urine; Z79.899 Other long term (current) drug therapy; Z86.73 Personal history of transient ischemic attack (TIA), and cerebral infarction without residual deficits; Z87.891 Personal history of nicotine dependence
CPT/HCPCS: 36415; 51701; 70450; 70551; 71045; 80048; 80053; 80202; 80307; 81001; 82140; 82607; 83735; 84295; 84443; 85025; 85027; 85610; 85730; 87040; 87077; 87086; 87088; 87186; 93005; 95816; 97110; 97116; 97161; 97165; 97530; 97535; 99285; A9270; G0378; J3370; J7030

== ENCOUNTER 2021-05-21 17:13 | Inpatient (IN) | payer MEDICARE, SELFPAY ==
--- NOTE | ~2021-05-21 | MR_ITS ---
EXAMINATION: MR brain/brain stem wo con EXAM DATE: 06/01/2021 10:05 INDICATION: Left sided weakness change in mental status, confusion. TECHNIQUE: Magnetic resonance imaging (MRI) of the brain/brain stem obtained without contrast. Charley al T1, axial diffusion, gradient echo (T2*), T1, T2, FLAIR sequences obtained. Comparison is made to prior examination from 05/13/2021. FINDINGS: There are no areas of restricted diffusion to suggest acute infarction. There is no acute hemorrhage seen on the T2*, a hemosiderin sensitive sequence. No intraparenchymal brain mass lesion. 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 There is moderate periventricular and subcortical T2/FLAIR signal hype rintensity, nonspecific but probably related to small vessel ischemic disease (microangiopathy). Th ere is ventricular prominence out of proportion to sulci which is suspected most likely central atrop hy rather than hydrocephalus. Normal pressure hydrocephalus cannot be excluded (clinical triad ataxi a/gait disturbance, dementia, urinary incontinence). There are no extra-axial collections. Flow voi ds are seen in the cerebral arteries on the T2-weighted sequences consistent with their expected doan ncy. Patient has had bilateral ocular lens surgery. Soft tissue is unremarkable. There is no inter jimi change. IMPRESSION: 1. No acute intracranial findings. 2. Dilated ventricles, probably central atrophy but NPH not excludable. 3. Moderate microangiopathy. DERRICK OPERATOR Reviewed, dictated and finalized at location B.
--- NOTE | ~2021-05-21 | CT_ITS ---
EXAMINATION: CT brain wo con EXAM DATE: 05/31/2021 14:57 INDICATION: left side hemiparesis during PT this am, very confused. TECHNIQUE: Spiral CT of the head was performed without contrast. Axial, coronal and sagittal images were reviewed. The dose-length product (DLP) for this examination was 756.67 mGy-cm. The exposure w as tailored according to patient size, and iterative reconstruction (ASIR) was used as additional dos e reduction technique. Comparison is made to prior examination from 05/12/2021. FINDINGS: Bilateral periventricular lacunar old infarctions. Old punctate right caudate head infarcti on. Moderate microangiopathy. There is ventricular prominence out of proportion to sulci which is sowmya pected most likely central atrophy rather than hydrocephalus. Normal pressure hydrocephalus cannot b e excluded (clinical triad ataxia/gait disturbance, dementia, urinary incontinence). No acute intracr anial hemorrhage, extra-axial collection, or evidence of acute infarction. Bilateral cataract surgery . IMPRESSION: 1. No acute intracranial findings. 2. 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 3. Dilated ventricles, probably central atrophy. NPH not excludable. 4. Moderate microangiopathy. Reviewed, dictated and finalized at location G. CASE MANAGER
[2021-05-21 17:30] VITALS: BP 152/70; PULSE 90; RESP 18; TEMP 36.5; O2SAT 96; BMI 24.3
--- NOTE | 2021-05-21 17:30 | ADMGEN ---
This patient, Nicol Fernandez, was admitted to 2nd Floor Room 205-2 as skilled swing bed related to AMS, UTI and weakness. Patient/family oriented to hospital policies and general routines including ID bracelet, bed and alarms, visiting hours, pain management, procedures, bathroom and other care routines, personal items, smoking policy, room service/diet, and visiting hours. Information on how to activate the Rapid Response Team has been discussed. Patient/Family are encouraged to report perceived risks to care and to ask questions if they do not understand what they are told or what they should do.
[2021-05-21 17:45] VITALS: O2SAT 96
--- NOTE | 2021-05-21 19:35 | ADMGEN ---
This patient, Nicol Fernandez, was admitted to 2nd Floor Room 205-2 as a skilled swing bed related to AMS and UTI. Patient/family oriented to hospital policies and general routines including ID bracelet, bed and alarms, visiting hours, pain management, procedures, bathroom and other care routines, personal items, smoking policy, room service/diet, and visiting hours. Information on how to activate the Rapid Response Team has been discussed. Patient/Family are encouraged to report perceived risks to care and to ask questions if they do not understand what they are told or what they should do.
--- NOTE | 2021-05-21 20:45 | PM.IMHP ---
H&P: HPI History of Present Illness Date/Time: 05/21/21 20:45 Chief Complaint: Weakness Narrative: 86-year-old woman with a history of TIA, hypertension, COPD, GERD and hypothyroidism and who lives alone admitted to [facility] on 05/13/2021 with loose stools and increasing confusion. She was found to have an enterococcal UTI for which she was treated with vancomycin (today 5 of total 7 days). Altered mental status was evaluated by Neurology and will follow-up with them outpatient for further evaluation. Patient was found to be hypo-osmolar and hyponatremic and her hydrochlorothiazide was discontinued. Sodium is 129 on the day of admission. Review of Systems Review of Systems: ROS unobtainable: Yes other (Review of systems limited by mental status/confusion) Constitutional: Constitutional: Reports no additional constitutional complaints, Denies chills, Denies fatigue, Denies fever(s) and Denies poor appetite Eyes: Eyes: Denies blurry vision, Denies change in vision and Denies diplopia ENT: Denies nasal congestion, Denies odynophagia and Denies sore throat Cardiovascular: Cardiovascular: Denies chest pain, Denies rapid heart rate and Denies leg edema Respiratory: Respiratory: Denies chest congestion, Denies cough and Denies dyspnea Gastrointestinal: Gastrointestinal: Denies abdominal pain, Denies constipation, Denies diarrhea, Denies nausea and Denies vomiting Genitourinary: Genitourinary: Denies nocturia, Denies dysuria and Denies flank pain Musculoskeletal: Musculoskeletal: Denies back pain, Denies arthralgias and Denies joint swelling Integumentary/Breasts: Skin/Breast: Denies pruritus, Denies erythema, Denies rash and Denies sores Neurologic: Denies frequent falls, Denies headache(s) and Denies focal weakness Psychiatric: Psychiatric: Denies suicidal ideation Hematologic/Lymphatic: Hematologic/Lymphatic: Denies easy bleeding and Denies easy bruising Allergic/Immunologic: Allergic/Immunologic: Denies urticaria, Denies lip swelling and Denies throat swelling PMFSH Past Medical History Medical History Anxiety Chronic kidney disease, stage 3 Chronic obstructive pulmonary disease Hypertension Surgical History Surgical History History of cataract extraction with lens replacement History of cholecystectomy History of hysterectomy History of tonsillectomy Family History Family History Father No problems noted. Sibling No problems noted. Mother Cerebrovascular accident Social History Social History Social History: Surrogate decision maker: Mechelle Gayle, daughter. Code status: Full code. Smoking packs per day: 1 Smoking cigarettes per day: 20.0 Years smoked: 5 Smoking pack-years: 5.00 Smoking status: Former smoker Second hand tobacco smoke exposure: No Smoking end date: 05/15/06 Alcohol intake: never Substance use: never Substance use type: does not use Additional living arrangements comments: The patient is . She lives in her own home in [place] with her dog. Spiritual care concerns: No Meds Home Medications and Allergies Home Medications Medication Instructions Recorded Confirmed Type gabapentin 300 mg capsule 300 mg PO DAILY #90 cap 04/15/21 05/21/21 Rx lorazepam 1 mg tablet 1 mg PO BID PRN #60 tablet 04/15/21 05/21/21 Rx losartan 100 mg PO DAILY #30 tablet 05/21/21 05/21/21 Rx Allergies Allergy/AdvReac Type Severity Reaction Status Date / Time Sulfa (Sulfonamide Allergy Severe Swelling Verified 12/09/20 14:59 Antibiotics) Penicillins Allergy Unknown ,swelling, Verified 12/09/20 14:59 vomit aspirin AdvReac Unknown stomach Verified 05/12/21 19:19 pain- Adult ASA ciprofloxacin AdvReac
[2021-05-22] VITALS: BP 159/70; PULSE 90; RESP 16; TEMP 36.9; O2SAT 96
[2021-05-22 05:47] LABS: Anion Gap 10 mmol/L (8-16); Blood Urea Nitrogen 20 mg/dL (7-18); Calcium 9.1 mg/dL (8.5-10.1); Carbon Dioxide 27 mmol/L (21-32); Chloride 94 mmol/L (98-108); Estimated CRCL calculation 22 ml/min; Estimated Glomerular Filt Rate 39; Glucose 114 mg/dL (70-99); Osmolality Calculated 275 mOsm/kg (285-295); Potassium 3.6 mmol/L (3.5-5.1); Sodium 131 mmol/L (136-145)
[2021-05-22 08:00] VITALS: BP 151/69; PULSE 80; RESP 18; TEMP 36.6; O2SAT 96
[2021-05-22] MEDS: GABAPENTIN 300 MG CAPSULE PO (08:49)
[2021-05-22] MEDS: LOSARTAN POTASSIUM 50 MG TABLET 100 MG PO (08:49)
[2021-05-22] MEDS: SODIUM CHLORIDE 1 GM TABLET PO ×2 (09:56→17:49)
[2021-05-22 16:00] VITALS: BP 148/68; PULSE 80; RESP 18; TEMP 36.6; O2SAT 96
[2021-05-23] VITALS: BP 125/60; PULSE 83; RESP 20; TEMP 36.7; O2SAT 95
[2021-05-23 08:00] VITALS: BP 143/62; PULSE 84; RESP 20; TEMP 37.6; O2SAT 97
[2021-05-23] MEDS: GABAPENTIN 300 MG CAPSULE PO (09:07)
[2021-05-23] MEDS: LOSARTAN POTASSIUM 50 MG TABLET 100 MG PO (09:07)
[2021-05-23] MEDS: SODIUM CHLORIDE 1 GM TABLET PO ×2 (09:07→17:16)
[2021-05-23 16:00] VITALS: BP 137/65; PULSE 84; RESP 18; TEMP 36.5; O2SAT 100
[2021-05-24] VITALS: BP 129/56; PULSE 81; RESP 18; TEMP 36.2; O2SAT 97
[2021-05-24 08:00] VITALS: BP 151/74; PULSE 70; RESP 20; TEMP 36.9; O2SAT 95
[2021-05-24] MEDS: SODIUM CHLORIDE 1 GM TABLET PO ×2 (09:02→17:33)
[2021-05-24] MEDS: LOSARTAN POTASSIUM 50 MG TABLET 100 MG PO (09:02)
[2021-05-24] MEDS: GABAPENTIN 300 MG CAPSULE PO (09:02)
[2021-05-24 16:00] VITALS: BP 126/79; PULSE 88; RESP 20; TEMP 36.9; O2SAT 100
[2021-05-25] VITALS: BP 140/89; PULSE 88; RESP 14; TEMP 37; O2SAT 95
[2021-05-25 06:13] LABS: Anion Gap 9 mmol/L (8-16); Blood Urea Nitrogen 21 mg/dL (7-18); Calcium 8.3 mg/dL (8.5-10.1); Carbon Dioxide 26 mmol/L (21-32); Chloride 100 mmol/L (98-108); Estimated CRCL calculation 26 ml/min; Estimated Glomerular Filt Rate 47; Glucose 103 mg/dL (70-99); Osmolality Calculated 283 mOsm/kg (285-295); Potassium 3.6 mmol/L (3.5-5.1); Sodium 135 mmol/L (136-145)
[2021-05-25 07:55] VITALS: BP 166/77; PULSE 87; RESP 18; TEMP 36.9; O2SAT 96
[2021-05-25 08:20] VITALS: O2SAT 95
[2021-05-25] MEDS: GABAPENTIN 300 MG CAPSULE PO (09:42)
[2021-05-25] MEDS: SODIUM CHLORIDE 1 GM TABLET PO ×2 (09:42→17:40)
[2021-05-25] MEDS: LOSARTAN POTASSIUM 50 MG TABLET 100 MG PO (09:42)
[2021-05-25 15:45] VITALS: BP 169/74; PULSE 86; RESP 18; TEMP 37; O2SAT 95
[2021-05-26] VITALS: BP 163/67; PULSE 76; RESP 18; TEMP 37.3; O2SAT 95
[2021-05-26 08:00] VITALS: BP 160/62; PULSE 79; RESP 14; TEMP 37.1; O2SAT 95
[2021-05-26] MEDS: SODIUM CHLORIDE 1 GM TABLET PO ×2 (08:54→17:16)
[2021-05-26] MEDS: LOSARTAN POTASSIUM 50 MG TABLET 100 MG PO (08:54)
[2021-05-26] MEDS: GABAPENTIN 300 MG CAPSULE PO (08:54)
[2021-05-26 16:00] VITALS: BP 152/65; PULSE 81; RESP 16; TEMP 37; O2SAT 94
--- NOTE | 2021-05-26 16:32 | STIPEVAL ---
Thank you for referring Nicol Fernandez to [facility].? The patient is scheduled to be seen for therapy? 2-3x/week for 2 weeks. Please review, sign, date and return this plan of care RAZ. I agree with and certify that the following plan of care is medically necessary. Referring Physician Date Admitting Provider: Juliana Olea MD Attending Provider: Juliana Olea MD Referring Provider: SCHUYLER Inpatient Evaluation Start: 05/26/21 15:15 Freq: Status: Active Protocol: Document 05/26/21 14:25 MJB (Rec: 05/26/21 16:32 EDDI [id number]) Therapy Assessment Status Assessment Status Assessment Status Evaluation Prior Level of Function Activity Level (Last 3 Months) Occupation retired Hand Dominance Right Activity of Daily Living Ability Independent Indoor/Home Mobility Independent Community Mobility Independent Stairs Ability Independent Functional Cognition (Planning, Shopping Independent , Taking Medications) Cooking Yes Cleaning Yes Laundry Yes Shopping Yes Driving Yes Home Setting Home Type Apartment Environmental Barriers Stairs, None Living Situation Alone Support Available Local Family Support Cargiver Responsibilities Comment patient provides prior level of living therefore unsure of accuracy Mobility Assistive Devices (Used Last 3 None Months) Bathroom Environment Shower, Open Prior Swallow Level Prior Intake Method Oral Prior Diet Regular (Level 7 Diet) Prior Liquid Consistency Thin (Level 0 Diet) Prior Cognition/Communication Prior Cognitive Function Able to Function Independently Prior Ability to Handle Finances Independent Comments Additional Prior Level of Function Patient was a poor historian Comments for prior level of function with cognitive skills. Patient lived at home independently and reports that she handled her own finances and medication. Pain Assessment Timing of Pain Assessment Timing of Pain Assessment Assessment Self Report Self Report Pain Level 0 Pain Score Pain Score 0: Self Report Language Evaluation Auditory Comprehension Simple Yes/No Questions (% Accuracy (0- 80 100)) Moderate Yes/No Questions (% Accuracy (0 80 -100)) Complex Yes/No Questions (% Accuracy (0-
[2021-05-26 23:58] VITALS: BP 169/73; PULSE 76; RESP 20; TEMP 36.8; O2SAT 96
--- NOTE | 2021-05-27 01:40 | PC.NURSE ---
Sleeping, no signs of distress, bed alarm on. Belongings and call light within reach.
[2021-05-27 08:00] VITALS: BP 180/92; PULSE 86; RESP 18; TEMP 36.8; O2SAT 94
[2021-05-27] MEDS: LOSARTAN POTASSIUM 50 MG TABLET 100 MG PO (09:01)
[2021-05-27] MEDS: SODIUM CHLORIDE 1 GM TABLET PO ×2 (09:01→17:45)
[2021-05-27] MEDS: GABAPENTIN 300 MG CAPSULE PO (09:02)
--- NOTE | 2021-05-27 12:26 | PM.EVENT ---
Event Note Event Note Event Note: Patient remains confused. According to family members patient was not incontinent previous to admission. We will do a repeat urinalysis and CT of the abdomen and pelvis. Family concerned about bladder cancer.
--- NOTE | 2021-05-27 13:30 | PCPTNOTE ---
1330- Attempted to see pt this morning at 1035 spending 20 minutes with pt trying to talk her into treatment.. pt once again refused to participate in therapy. clinician educated pt on the importance of therapy to get her strong and ready to go home. Tried to talk pt into a multitude of things to try to get her up such as going to look at the new floor, go look out the window, walk down to see the nurses, go look at the pictures on the wall all of which pt reported she didn't care about any of these things and didn't want to do anything. pt was then encouraged to just stand up to bear weight through her le, perform standing exercises, etc., which pt once again refused. Also tried to get pt to simply perform seated exercises such as ankle pumps, isometric hip adduction, etc, but pt once again refused stating, you do them, I don't want to, the best thing you can do for me is leave me alone. Pt was oriented to where she was this date, responding to the question with you know where we are, we are in the hospital . HM
[2021-05-27 16:00] VITALS: PULSE 82; RESP 18; TEMP 36.6; O2SAT 94
--- NOTE | 2021-05-27 20:41 | PC.NURSE ---
patient straight cathed to obtain sample for UA. Urine strong odor and cloudy. 350 mls out immediately. Tolerated procedure well.
[2021-05-28] VITALS: BP 120/59; PULSE 81; RESP 14; TEMP 36.6; O2SAT 97
[2021-05-28 00:58] LABS: Add Urine Microscopic? YES; Appearance Urine Clear (Clear); Bilirubin Urine Negative (Negative); Blood Urine Negative (Negative); Color Urine Light Yellow (Yellow); Glucose Urine UA Negative (Negative); Ketones Urine Negative (Negative); Leukocyte Esterase Ur Trace LEU/UL (Negative); Nitrate Urine Negative (Negative); Protein Urine Trace (Negative)
[2021-05-28 01:04] LABS: Bacteria Urine 4+ /hpf; RBC Urine 0-2 /hpf (0-2); Squamous Epithelial Cell Urine None seen /hpf (Few); WBC Urine 16-20 /hpf (0-3)
[2021-05-28 08:00] VITALS: BP 134/74; PULSE 78; RESP 18; TEMP 36.6; O2SAT 95
[2021-05-28] MEDS: GABAPENTIN 300 MG CAPSULE PO (09:13)
[2021-05-28] MEDS: LOSARTAN POTASSIUM 50 MG TABLET 100 MG PO (09:13)
[2021-05-28] MEDS: SODIUM CHLORIDE 1 GM TABLET PO ×2 (09:13→16:47)
--- NOTE | 2021-05-28 11:19 | PM.EVENT ---
Event Note Event Note Event Note: Repeat UA has a trace of protein leukocytes and bacteria. Patient's last UA with Enterococcus species sensitive to Macrobid. We will restart Macrobid to monitor her creatinine clearance close.
[2021-05-28] MEDS: NITROFURANTOIN MONOHYD MACROCR 100 MG CAP PO ×2 (11:24→20:53)
[2021-05-28 16:00] VITALS: BP 151/73; PULSE 74; RESP 18; TEMP 36.5; O2SAT 96
--- NOTE | 2021-05-28 20:40 | PC.NURSE ---
Pt was transferred to the bathroom from the chair with standby assist, gait belt, and walker with excellent performance. Urine had a strong odor to it and was cloudy and cornel in color. Pt then ambulated back to the chair with ease.
[2021-05-28 23:05] VITALS: BP 174/83; PULSE 74; RESP 14; TEMP 36.6; O2SAT 96
--- NOTE | 2021-05-29 00:27 | PC.NURSE ---
Pt is sleeping in the recliner leaning towards her right side. Room lights and TV are on and pt has the call light within reach.
--- NOTE | 2021-05-29 02:10 | PC.NURSE ---
Pt rounding complete. Date updated on pt whiteboard and pt is reclined on her right side with the call light within reach. At first Kathrine was sleeping, but did awaken while this telegraphic typewriter mechanic was in the room. Pt denied having any needs at this time.
--- NOTE | 2021-05-29 05:01 | PC.NURSE ---
Pt was brought a blanket for comfort; call light within reach.
[2021-05-29 06:18] LABS: Anion Gap 11 mmol/L (8-16); Blood Urea Nitrogen 16 mg/dL (7-18); Calcium 8.9 mg/dL (8.5-10.1); Carbon Dioxide 26 mmol/L (21-32); Chloride 96 mmol/L (98-108); Estimated CRCL calculation 26 ml/min; Estimated Glomerular Filt Rate 47; Glucose 113 mg/dL (70-99); Osmolality Calculated 278 mOsm/kg (285-295); Potassium 3.7 mmol/L (3.5-5.1); Sodium 133 mmol/L (136-145)
[2021-05-29 08:00] VITALS: BP 148/80; PULSE 72; RESP 14; TEMP 36.5; O2SAT 96
[2021-05-29] MEDS: NITROFURANTOIN MONOHYD MACROCR 100 MG CAP PO ×2 (09:17→21:44)
[2021-05-29] MEDS: GABAPENTIN 300 MG CAPSULE PO (09:18)
[2021-05-29] MEDS: LOSARTAN POTASSIUM 50 MG TABLET 100 MG PO (09:18)
[2021-05-29] MEDS: SODIUM CHLORIDE 1 GM TABLET PO ×2 (09:18→18:31)
[2021-05-30] VITALS: BP 174/73; PULSE 80; RESP 20; TEMP 36.3; O2SAT 98
--- NOTE | 2021-05-30 00:10 | PC.NURSE ---
Pt resting quietly in bed and doesnt voice any c/o shortness of breath or discomfort. Side rails up x3 and call barton within reach.
[2021-05-30 08:00] VITALS: BP 171/59; PULSE 81; RESP 14; TEMP 36.8; O2SAT 95
[2021-05-30] MEDS: LOSARTAN POTASSIUM 50 MG TABLET 100 MG PO (09:35)
[2021-05-30] MEDS: SODIUM CHLORIDE 1 GM TABLET PO ×2 (09:55→16:58)
[2021-05-30] MEDS: GABAPENTIN 300 MG CAPSULE PO (09:56)
[2021-05-30] MEDS: NITROFURANTOIN MONOHYD MACROCR 100 MG CAP PO ×2 (09:56→21:18)
[2021-05-30 10:30] LABS: Anion Gap 10 mmol/L (8-16); Blood Urea Nitrogen 18 mg/dL (7-18); Calcium 8.8 mg/dL (8.5-10.1); Carbon Dioxide 27 mmol/L (21-32); Chloride 94 mmol/L (98-108); Estimated CRCL calculation 24 ml/min; Estimated Glomerular Filt Rate 45; Glucose 162 mg/dL (70-99); Osmolality Calculated 277 mOsm/kg (285-295); Potassium 3.9 mmol/L (3.5-5.1); Sodium 131 mmol/L (136-145)
[2021-05-30 16:00] VITALS: BP 144/62; PULSE 83; RESP 16; TEMP 36.7; O2SAT 94
[2021-05-31] VITALS: BP 158/66; PULSE 90; RESP 20; TEMP 36.7; O2SAT 99
--- NOTE | 2021-05-31 00:05 | PC.NURSE ---
Patient up in chair watching TV. Cooperative with care. Amb to/from bathroom with gait belt, walker, and SBA. Gait steady. Patient forgetful and must be redirected. Ate % of dinner, fed self. Incont at times. Takes medication without difficulty. Assisted with HS care. Call light and belongings within reach. Side rails up x2.
--- NOTE | 2021-05-31 00:15 | PC.NURSE ---
Pt resting in bed and doesnt voice any c/o discomfort at this time.
--- NOTE | 2021-05-31 02:20 | PC.NURSE ---
Pt asleep and no signs of discomfort noted.
--- NOTE | 2021-05-31 04:05 | PC.NURSE ---
Pt asleep and no signs of discomfort noted.
--- NOTE | 2021-05-31 06:15 | PC.NURSE ---
Pt asleep and no signs of discomfort noted.
[2021-05-31 06:32] LABS: Hemoglobin 11.7 g/dL (11.7-13.8); Mean Corpuscular HGB Conc 32.5 g/dL (32.0-36.0); Mean Corpuscular Hemoglobin 28.1 pg (27.0-31.0); Mean Corpuscular Volume 86.3 fL (78.0-102.0); Mean Platelet Volume 10.8 fl (9.2-11.8); Platelet Count Result 283 K/mm3 (150-420); Red Blood Count 4.17 M/mm3 (4.20-5.40); Red Cell Distribution Width 13.3 % (11.6-14.4); White Blood Count 8.6 K/mm3 (4.8-10.8)
[2021-05-31 07:00] LABS: Anion Gap 11 mmol/L (8-16); Blood Urea Nitrogen 18 mg/dL (7-18); Calcium 9.1 mg/dL (8.5-10.1); Carbon Dioxide 24 mmol/L (21-32); Chloride 95 mmol/L (98-108); Estimated CRCL calculation 25 ml/min; Estimated Glomerular Filt Rate 45; Glucose 92 mg/dL (70-99); Osmolality Calculated 271 mOsm/kg (285-295); Potassium 4.1 mmol/L (3.5-5.1); Sodium 130 mmol/L (136-145)
[2021-05-31 08:00] VITALS: BP 137/72; PULSE 84; RESP 18; TEMP 37; O2SAT 95
--- NOTE | 2021-05-31 08:17 | PM.DS ---
DS: Discharge Diagnosis Discharge Diagnosis (1) Altered mental status: Qualifiers: Altered mental status type: unspecified Qualified Code(s): R41.82 - Altered mental status, unspecified Code(s): R41.82 - Altered mental status, unspecified Status: Acute Assessment and Plan: Patient may have some degree of underlying dementia and is to follow-up with neurology to discuss further testing. MRI showed evidence of atrophy. (2) Hypertension: Code(s): I10 - Essential (primary) hypertension Status: Acute Assessment and Plan: Recent changes in her blood pressure medication require monitoring of her blood pressure. Must be done carefully in light of chronic renal failure. (3) Anxiety: Code(s): F41.9 - Anxiety disorder, unspecified Status: Acute Assessment and Plan: Anxiolytics only as needed in this confused patient (4) Chronic obstructive pulmonary disease: Code(s): J44.9 - Chronic obstructive pulmonary disease, unspecified Status: Acute Assessment and Plan: Will use albuterol p.r.n. for symptoms. (5) Chronic kidney disease, stage 3: Code(s): N18.30 - Chronic kidney disease, stage 3 unspecified Status: Acute Assessment and Plan: Will monitor carefully (6) Hyponatremia: Code(s): E87.1 - Hypo-osmolality and hyponatremia Status: Acute Assessment and Plan: Continue to monitor carefully. Hydrochlorothiazide was discontinued during her stay in [place]. (7) Urinary tract infection: Code(s): N39.0 - Urinary tract infection, site not specified Status: Acute Assessment and Plan: It was noted that she had received 5 doses of vancomycin of 7 day course. Last dose before arrival was on 05/20/21 20:30. Dose was ordered for this evening. DS: Summary Time Spent with Patient Time attestation: Total time spent providing and/or coordinating discharge services: DS: Data Data Completed and Pending Labs on day of discharge: Labs from last 24 hours 05/31/21 05/31/21 05/30/21 04:44 04:44 10:02 WBC 8.6 RBC 4.17 L Hgb 11.7 Hct 36.0 MCV 86.3 MCH 28.1 MCHC 32.5 RDW 13.3 Plt Count 283 MPV 10.8 Sodium 130 L 131 L Potassium 4.1 3.9 Chloride 95 L 94 L Carbon Dioxide 24 27 Anion Gap 11 10 BUN 18 18 Creatinine 1.14 H 1.15 H Estim Creat Clear Calc 25 24 Estimated GFR 45 L 45 L Glucose 92 162 H Calculated Osmolality 271 L 277 L Calcium 9.1 8.8 Discharge Plan Discharge Attending physician on discharge: Florentin Swartz Discharging Clinician: Maxine Pham Anticipated Discharge Date/Time: 05/31/21 08:05 Patient Disposition: Home Health Service Activity: as tolerated Diet: regular Discharge Instructions: Take medications as prescibed. . Hyponatremia When do I need to call the doctor? Cramping or twitching of your muscles Upset stomach, throwing up, or loose stools Feeling weak or tired Abnormal heartbeat Very bad headache You or your family notice that you are not thinking clearly You do not know where you are Seizure Loss of consciousness Patient Instructions: Antibiotic Form Stand Alone Forms: General Discharge Information Discharge Medications: New sodium chloride 1 gram Tablet 1 g PO BID Qty: 15 RF: 0 Continued losartan 100 mg Tablet 100 mg PO DAILY Qty: 30 RF: 0 gabapentin 300 mg capsule 300 mg PO DAILY Qty: 90 RF: 1 lorazepam 1 mg tablet 1 mg PO BID PRN (Reason: anxiety) Qty: 60 RF: 0 Other Ambulatory Orders: Basic Metabolic Panel (Routine) Timeframe: 3 Weeks Location: Determined by Patient Ordered By: Maxine Pham Date of admission: 05/21/21 17:13 Primary Care Provider: [place] Admitting Provider: Juliana Olea Attending physician on admission: Juliana Olea Condition: Stable
[2021-05-31] MEDS: NITROFURANTOIN MONOHYD MACROCR 100 MG CAP PO ×2 (09:23→21:39)
[2021-05-31] MEDS: GABAPENTIN 300 MG CAPSULE PO (09:23)
[2021-05-31] MEDS: SODIUM CHLORIDE 1 GM TABLET PO ×2 (09:23→17:23)
[2021-05-31] MEDS: LOSARTAN POTASSIUM 50 MG TABLET 100 MG PO (09:24)
--- NOTE | 2021-05-31 14:12 | PC.NURSE ---
Patient consumed only a couple bites of lunch. Ensure supplement provided for nutrition.
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
[2021-05-31 16:00] VITALS: BP 126/65; PULSE 94; RESP 18; TEMP 37.1; O2SAT 93
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
[2021-05-31] MEDS: MELATONIN 5 MG TABLET PO (21:39)
[2021-06-01] VITALS: BP 149/66; PULSE 86; RESP 16; TEMP 36.6; O2SAT 96
[2021-06-01 08:00] VITALS: BP 142/56; PULSE 83; RESP 16; TEMP 36.4; O2SAT 96
[2021-06-01] MEDS: NITROFURANTOIN MONOHYD MACROCR 100 MG CAP PO (09:01)
[2021-06-01] MEDS: LOSARTAN POTASSIUM 50 MG TABLET 100 MG PO (09:01)
[2021-06-01] MEDS: GABAPENTIN 300 MG CAPSULE PO (09:02)
[2021-06-01] MEDS: SODIUM CHLORIDE 1 GM TABLET PO (09:02)
[2021-06-01 09:47] LABS: Anion Gap 9 mmol/L (8-16); Blood Urea Nitrogen 21 mg/dL (7-18); Calcium 8.9 mg/dL (8.5-10.1); Carbon Dioxide 28 mmol/L (21-32); Chloride 94 mmol/L (98-108); Estimated CRCL calculation 23 ml/min; Estimated Glomerular Filt Rate 42; Glucose 126 mg/dL (70-99); Osmolality Calculated 277 mOsm/kg (285-295); Potassium 3.9 mmol/L (3.5-5.1); Sodium 131 mmol/L (136-145)
--- NOTE | 2021-06-01 15:21 | PM.DS ---
DS: Admitting Diagnosis Discharge Date 06/01/2021 <Audi Borreroavis RESTAURANT MANAGER-C - Last Filed: 06/01/21 15:35> Admitting Diagnosis AMS, CKD Stage III, COPD, HTN, Hyponatremia, UTI <Audi Borreroavis RESTAURANT MANAGER-C - Last Filed: 06/01/21 15:35> DS: Discharge Diagnosis Discharge Diagnosis (1) Altered mental status: Qualifiers: Altered mental status type: unspecified Qualified Code(s): R41.82 - Altered mental status, unspecified <Audi Borreroavis RESTAURANT MANAGER-C - Last Filed: 06/01/21 15:35> Code(s): R41.82 - Altered mental status, unspecified <Audi Borreroavis RESTAURANT MANAGER-C - Last Filed: 06/01/21 15:35> Status: Acute <Audi CasanovaJoie Adairavis RESTAURANT MANAGER-C - Last Filed: 06/01/21 15:35> Assessment and Plan: Patient may have some degree of underlying dementia and is to follow-up with neurology to discuss further testing. MRI showed evidence of atrophy. 06/01/2021 Pt is alert and oriented x 3, likely due to UTI and now treated and resolved <Audi CasanovaJoie Nassar RESTAURANT MANAGER-C - Last Filed: 06/01/21 15:35> (2) Hypertension: Code(s): I10 - Essential (primary) hypertension <Audi CasanovaJoie Nassar RESTAURANT MANAGER-C - Last Filed: 06/01/21 15:35> Status: Acute <Audi CasanovaJoie Nassar APN-C - Last Filed: 06/01/21 15:35> Assessment and Plan: Recent changes in her blood pressure medication require monitoring of her blood pressure. Must be done carefully in light of chronic renal failure. 06/01/2021 VSS, continue on current regimen on DC with close f/u with PCP <Audi Nassar APN-C - Last Filed: 06/01/21 15:35> (3) Anxiety: Code(s): F41.9 - Anxiety disorder, unspecified <Audi CasanovaJoie Nassar RESTAURANT MANAGER-C - Last Filed: 06/01/21 15:35> Status: Acute <Audi EdilbertoJoie Nassar RESTAURANT MANAGER-C - Last Filed: 06/01/21 15:35> Assessment and Plan: Anxiolytics only as needed in this confused patient 06/01/2021 Pt is relaxed and looking forward to returning home <KAY PatelC - Last Filed: 06/01/21 15:35> (4) Chronic obstructive pulmonary disease: Code(s): J44.9 - Chronic obstructive pulmonary disease, unspecified <Audi EdilbertoKAY TurkC - Last Filed: 06/01/21 15:35> Status: Acute <Audi CasanovaJoie Nassar APN-C - Last Filed: 06/01/21 15:35> Assessment and Plan: Will use albuterol p.r.n. for symptoms. 06/01/2021 Stable <Audi CasanovaKAY TurkC - Last Filed: 06/01/21 15:35> (5) Chronic kidney disease, stage 3: Code(s): N18.30 - Chronic kidney disease, stage 3 unspecified <Audi EdilbertoKAY TurkC - Last Filed: 06/01/21 15:35> Status: Acute <Audi CasanovaJoie Nassar APN-C - Last Filed: 06/01/21 15:35> Assessment and Plan: Will monitor carefully 06/01/2021 Appears to be at baseline, follow with PCP after DC. <Audi CasanovaKAY TurkC - Last Filed: 06/01/21 15:35> (6) Hyponatremia: Code(s): E87.1 - Hypo-osmolality and hyponatremia <KAY PatelC - Last Filed: 06/01/21 15:35> Status: Acute <Audi CasanovaJoie Nassar APN-C - Last Filed: 06/01/21 15:35> Assessment and Plan: Continue to monitor carefully. Hydrochlorothiazide was discontinued during her stay in [place]. 06/01/2021 Current Na/Cl 131/94 will DC with 1000 mg Sodium Tab BID Per Sonsilvina Pham RIB TRIM SEPARATOR orders yesterday. <Audi Nassar APN-C - Last Filed: 06/01/21 15:35> (7) Urinary tract infection: Code(s): N39.0 - Urinary tract infection, site not specified <RANDA Patel - Last Filed: 06/01/21 15:35> Status: Acute <RANDA Patel - Last Filed: 06/01/21 15:35> Assessment and Plan: It was noted that she had received 5 doses of vancomycin of 7 day course. Last dose before arrival was on 05/20/21 20:30. Dose was ordered for this evening. 06/01/2021 Finished Ab regimen <RANDA Paetl - Last Filed: 06/01/21 15:35> DS: Summary Hospital Course Hospital Course: Pt treated for UTI and AMS improved, Na and Cl still
[2021-06-01 16:00] VITALS: BP 114/56; PULSE 70; RESP 16; TEMP 36.6; O2SAT 95
--- NOTE | 2021-06-01 17:45 | PC.NURSE ---
Patient discharged from hospital. Transported to [facility] in [place] with nurse assist. Discharge instructions given to patient and grand daughter, Lacy. Scripts electronically transmitted to [facility] in [place]. Personal belongings sent with patient.
--- NOTE | 2021-06-02 10:21 | PC.NURSE ---
Daughter states they received the discharge instructions. There were issues with the medications not being sent to the pharmacy. The issue has been resolved.
== END 2021-06-01 17:40 | disposition home health service (06) | DRG 690 ==
PROVIDERS: Emergency Medicine; Nurse Practitioner; Nurse Practitioner Family; Admitting Provider Emergency Medicine; PCP Physician Assistant; Visit Provider Emergency Medicine
DX: N39.0 Urinary tract infection, site not specified (principal); E87.1 Hypo-osmolality and hyponatremia; I12.9 Hypertensive chronic kidney disease with stage 1 through stage 4 chronic kidney disease, or unspecified chronic kidney disease; N18.30 Chronic kidney disease, stage 3 unspecified; J44.9 Chronic obstructive pulmonary disease, unspecified; E03.9 Hypothyroidism, unspecified; K21.9 Gastro-esophageal reflux disease without esophagitis; R41.82 Altered mental status, unspecified; F41.9 Anxiety disorder, unspecified; Z86.73 Personal history of transient ischemic attack (TIA), and cerebral infarction without residual deficits
CPT/HCPCS: 36415; 70450; 70551; 80048; 81001; 85027; 87086; 87088; 92507; 96125; 97110; 97162; 97166; 97530; 97535; A9270; J3370

== ENCOUNTER 2021-06-14 16:37 | Outpatient (CLI) | payer MEDICARE, SELFPAY ==
--- NOTE | ~2021-06-14 | US_ITS ---
EXAMINATION: US venous doppler LE EXAM DATE: 06/14/2021 17:48 INDICATION: Localized Swelling, Mass And Lump, Left Lower Limb Swelling Lt Lower Limb. TECHNIQUE: Multiple grayscale, color flow and Doppler images of the lower extremity deep venous syste ms bilaterally were obtained and reviewed. There is no prior study for comparison. FINDINGS: Right side: The right common femoral, femoral and profunda veins demonstrate normal color flow, respi ratory variation, augmentation and compressibility. Compressibility, color flow confirmed within the right popliteal, posterior tibial, peroneal, and greater saphenous veins. Left side: The left common femoral, femoral and profunda veins demonstrate normal color flow, respira tory variation, augmentation and compressibility. Compressibility, color flow confirmed within the l eft popliteal, posterior tibial, peroneal, and greater saphenous veins. IMPRESSION: 1. No lower extremity deep venous thrombosis bilaterally. Reviewed, dictated and finalized at location G. ETIC SCOUT
== END 2021-06-14 16:38 | disposition home or self-care (01) ==
LOC: ANHIMG 16:40
PROVIDERS: PCP Internal Medicine; Visit Provider Physician Assistant
DX: M79.89 Other specified soft tissue disorders (principal)
CPT/HCPCS: 93970

== ENCOUNTER 2021-06-21 15:17 | Outpatient (CLI) | payer MEDICARE, SELFPAY ==
[2021-06-21 16:16] LABS: Anion Gap 5 mmol/L (8-16); Blood Urea Nitrogen 17 mg/dL (7-17); Calcium 8.8 mg/dL (8.4-10.2); Carbon Dioxide 27 mmol/L (22-30); Chloride 98 mmol/L (98-107); Estimated Glomerular Filt Rate 43; Glucose 110 mg/dL (65-110); Potassium 3.8 mmol/L (3.4-5.0); Sodium 130 mmol/L (137-145)
[2021-06-21 16:17] LABS: Add Urine Microscopic? YES; Appearance Urine Cloudy (Clear); Bacteria Urine Trace /hpf; Bilirubin Urine Negative (Negative); Blood Urine Negative (Negative); Color Urine Yellow (Yellow); Glucose Urine UA Negative (Negative); Ketones Urine Negative (Negative); Leukocyte Esterase Ur 3+ LEU/UL (NEGATIVE); Nitrate Urine Negative (Negative); Protein Urine 2+ mg/dL (Negative); Specific Grav Ur 1.018 (1.001-1.035); Squamous Epithelial Cell Urine Many /hpf (Few); Urobilinogen Urine Negative mg/dL (<2.0); WBC Clumps Urine Present /HPF; WBC Urine >75 /hpf (0-3)
== END 2021-06-21 15:18 | disposition home or self-care (01) ==
PROVIDERS: PCP Internal Medicine; Visit Provider Physician Assistant
DX: R41.0 Disorientation, unspecified (principal)
CPT/HCPCS: 36415; 80048; 81001; 87086; 87088

== ENCOUNTER 2021-06-23 15:47 | Outpatient (CLI) | payer MEDICARE, SELFPAY ==
[2021-06-23 16:35] LABS: NT Pro B Type Natriuretic Pept 423 pg/mL (5-100)
== END 2021-06-23 15:48 | disposition home or self-care (01) ==
LOC: ANHLAB 15:51
PROVIDERS: PCP Internal Medicine; Visit Provider Internal Medicine Cardiovascular Disease
DX: R06.00 Dyspnea, unspecified (principal)
CPT/HCPCS: 36415; 83880

== ENCOUNTER 2021-06-28 15:16 | Outpatient (CLI) | payer MEDICARE, SELFPAY ==
--- NOTE | ~2021-06-28 | XR_ITS ---
XR foot LT min 3V DATE: 06/28/2021 15:37 INDICATION: Left foot pain and posterolateral swelling for one week TECHNIQUE: 4 views COMPARISON: None FINDINGS: Mild plantar and posterior calcaneal enthesopathy. No fracture or dislocation, periosteal r eaction or bone destruction is detected. IMPRESSION: Mild calcaneal enthesopathy Reviewed, dictated and finalized at location B. ESSORI PARAPROFESSIONAL IMPRESSION: Mild calcaneal enthesopathy
== END 2021-06-28 15:17 | disposition home or self-care (01) ==
LOC: ANHIMG 15:20
PROVIDERS: PCP Internal Medicine; Visit Provider Physician Assistant
DX: M79.672 Pain in left foot (principal); M77.32 Calcaneal spur, left foot
CPT/HCPCS: 73630

== ENCOUNTER 2021-08-23 15:02 | Outpatient (CLI) | payer MEDICARE, SELFPAY ==
[2021-08-23 15:40] LABS: Anion Gap 7 mmol/L (8-16); Blood Urea Nitrogen 23 mg/dL (7-17); Calcium 8.9 mg/dL (8.4-10.2); Carbon Dioxide 27 mmol/L (22-30); Chloride 100 mmol/L (98-107); Estimated Glomerular Filt Rate 33; Glucose 178 mg/dL (65-110); Potassium 4.1 mmol/L (3.4-5.0); Sodium 134 mmol/L (137-145)
== END 2021-08-23 15:03 | disposition home or self-care (01) ==
LOC: ANHLAB 15:04
PROVIDERS: PCP Physician Assistant; Visit Provider Physician Assistant
DX: E87.1 Hypo-osmolality and hyponatremia (principal)
CPT/HCPCS: 36415; 80048

== ENCOUNTER 2021-11-18 09:31 | Outpatient (CLI) | payer MEDICARE, SELFPAY ==
--- NOTE | ~2021-11-18 | XR_ITS ---
EXAMINATION: XR lumbar spine 6V w bending DATE: 11/18/2021 09:58 INDICATION: Low back pain TECHNIQUE: Anteroposterior, lateral in neutral, flexion and extension, and bilateral oblique views of the lumbar spine, and cone-down lateral view of the lumbosacral junction were obtained. COMPARISON: 11/21/2016 FINDINGS: There are 25 degrees of thoracolumbar dextroscoliosis. There is no fracture. Bone alignment is normal. There is no laxity with flexion or extension. There is unchanged severe loss of intervert ebral disc space height at L4-5 and L5-S1. The vertebral body heights are maintained. Small degenerat vicente osteophytes project from the anterior endplates of multiple vertebral bodies. There is advanced f acet osteoarthritis of the abdomen and lower lumbar spine. There is fusiform enlargement of the infra renal abdominal aorta. Surgical clips in the right upper quadrant are likely from prior cholecystecto my. IMPRESSION: 1. Severe lumbar spondylosis without acute findings or significant interval change. 2. Fusiform infrarenal abdominal aortic aneurysm. Reviewed, dictated and finalized at location B. IMPRESSION: 1. Severe lumbar spondylosis without acute findings or significant interval desean nge. 2. Fusiform infrarenal abdominal aortic aneurysm.
== END 2021-11-18 09:32 | disposition home or self-care (01) ==
PROVIDERS: PCP Physician Assistant; Visit Provider Physician Assistant
DX: M47.896 Other spondylosis, lumbar region (principal); I71.4 Abdominal aortic aneurysm, without rupture
CPT/HCPCS: 72114

== ENCOUNTER 2021-12-13 14:56 | Outpatient (CLI) | payer MEDICARE, SELFPAY ==
--- NOTE | ~2021-12-13 | MR_ITS ---
EXAMINATION: MR lumbar spine wo con DATE: 12/13/2021 15:44 INDICATION: Severe lumbar spondylosis. TECHNIQUE: Magnetic resonance imaging (MRI) of the lumbar spine was performed without intravenous con trast. Sequences included sagittal T2-weighted FSE, sagittal T2-weighted FS FSE, sagittal T1-weighted FSE, and axial T2-weighted FSE. COMPARISON: Lumbar spine MRI 11/01/2017, radiographs 11/18/2021 FINDINGS: There is 29 degrees dextroscoliosis of thoracolumbar spine. Vertebral body heights are norm al. There is moderately decreased disc height at T12-L1 and L1-L2, mildly decreased disc height at L2 -L3 and L3-L4, and severely decreased disc height at L4-L5 and L5-S1. The distal spinal cord signal i ntensity is normal. The conus medullaris is at T12-L1. The following disc levels are specifically dis cussed: T12-L1: The disc is bulging. There is mild bilateral facet joint osteoarthritis. There is mild left n eural foraminal stenosis. There is mild central canal stenosis. L1-L2: The disc is bulging. There is mild bilateral facet joint osteoarthritis. There is mild bilater al neural foraminal stenosis. There is mild central canal stenosis. L2-L3: The disc is bulging with superimposed right foraminal extrusion. There is mild bilateral facet joint osteoarthritis. There is moderate right and mild left neural foraminal stenosis. There is mild central canal stenosis. L3-L4: The disc is bulging and has an annular fissure. There is mild right and severe left facet join t osteoarthritis. There is mild bilateral neural foraminal stenosis. There is moderate central canal stenosis. L4-L5: The disc is bulging and has an annular fissure. There is mild bilateral facet joint osteoarthr itis. There is mild bilateral neural foraminal stenosis. There is mild central canal stenosis. L5-S1: The disc is bulging. There is moderate right and mild left facet joint osteoarthritis. There i s moderate right and mild left neural foraminal stenosis. There is mild central canal stenosis. IMPRESSION: 1. Severe lumbar spondylosis, mildly worsened from 11/01/2017. 2. Thoracolumbar dextroscoliosis. Reviewed, dictated and finalized at location A.
== END 2021-12-13 14:57 | disposition home or self-care (01) ==
PROVIDERS: PCP Physician Assistant; Visit Provider Physician Assistant
DX: M47.816 Spondylosis without myelopathy or radiculopathy, lumbar region (principal); M41.85 Other forms of scoliosis, thoracolumbar region
CPT/HCPCS: 72148

== ENCOUNTER 2022-03-31 14:55 | Outpatient (CLI) | payer MEDICARE, SELFPAY ==
[2022-03-31 15:30] LABS: Appearance Urine Clear (Clear); Bilirubin Urine Negative (Negative); Blood Urine Negative (Negative); Color Urine Yellow (Yellow); Glucose Urine UA Negative (Negative); Ketones Urine Negative (Negative); Leukocyte Esterase Ur Trace LEU/UL (NEGATIVE); Nitrate Urine Negative (Negative); Protein Urine 1+ mg/dL (Negative); Urobilinogen Urine 0.2 mg/dL (<2.0)
[2022-03-31 15:42] LABS: Hematocrit 37.6 % (37.0-47.0); Hemoglobin 11.5 g/dL (12.0-15.0); Mean Corpuscular HGB Conc 30.6 g/dl (32-36); Mean Corpuscular Hemoglobin 28.5 pg (26-34); Mean Corpuscular Volume 93.3 fl (80-100); Mean Platelet Volume 11.3 fl (7.4-10.4); Platelet Count Result 229 k/mm3 (150-375); Red Blood Count 4.03 M/mm3 (4.2-5.4); Red Cell Distribution Width 13.8 % (11.5-14.5); White Blood Count 7.2 K/mm3 (4.5-10.0)
[2022-03-31 15:47] LABS: Mucus Urine Rare /lpf; RBC Urine 0-2 /hpf (0-2); Squamous Epithelial Cell Urine Moderate /hpf (Few); WBC Urine 0-3 /hpf (0-3)
[2022-03-31 15:52] LABS: Alanine Aminotransferase 18 U/L (6-35); Albumin Level 4.4 g/dL (3.5-5.1); Alkaline Phosphatase 76 U/L (38-126); Anion Gap 10 mmol/L (8-16); Aspartate Amino Transferase 29 U/L (14-36); Bilirubin,Total 0.6 mg/dL (0.2-1.3); Blood Urea Nitrogen 26 mg/dL (7-17); Calcium 8.9 mg/dL (8.4-10.2); Carbon Dioxide 26 mmol/L (22-30); Chloride 101 mmol/L (98-107); Estimated Glomerular Filt Rate 36; Glucose 110 mg/dL (65-110); Potassium 4.1 mmol/L (3.4-5.0); Sodium 137 mmol/L (137-145)
[2022-03-31 16:22] LABS: Add Urine Microscopic? YES
[2022-03-31 16:22] LABS: Thyroid Stimulating Hormone 0.675 uIU/mL (0.465-4.680)
[2022-03-31 16:57] LABS: Vitamin B12 > 1000.0 pg/mL (239-931)
[2022-03-31 16:58] LABS: Folic Acid 9.6 ng/mL (2.76->20)
== END 2022-03-31 14:56 | disposition home or self-care (01) ==
PROVIDERS: PCP Physician Assistant; Visit Provider Physician Assistant
DX: R41.0 Disorientation, unspecified (principal); R53.83 Other fatigue
CPT/HCPCS: 36415; 80053; 81001; 82607; 82746; 84443; 85027; 87086; 87088

== ENCOUNTER 2022-04-03 11:54 | Emergency (ER) | payer MEDICARE, SELFPAY ==
[2022-04-03] VITALS (9 sets, daily range): BP systolic 155–165; BP diastolic 74–95; PULSE 74–88; RESP 11–21; TEMP 36.8; O2SAT 96–100
--- NOTE | ~2022-04-03 | CT_ITS ---
EXAMINATION: CT brain wo con DATE: 04/03/2022 14:41 INDICATION: ams . TECHNIQUE: Computed tomography (CT) of the head was performed without intravenous contrast. The mA wa s adjusted according to patient size. Iterative reconstruction technique was employed. The dose-lengt h product was 529.67 mGy-cm. COMPARISON: 05/31/2021 FINDINGS: No acute intracranial hemorrhage or extra-axial fluid collection. No hydrocephalus, mass, or herniation. No acute ischemic infarct. Unremarkable dural venous sinus attenuation. No acute osseous abnormality. The aerated spaces are clear. Moderate atrophy and chronic white matter change. Atherosclerotic intracranial calcification. Bilater al lens replacements. 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 IMPRESSION: No acute intracranial process. Reviewed, dictated and finalized at location K. PATIONAL PSYCHOLOGIST
--- NOTE | 2022-04-03 12:20 | ECG_ITS ---
Measurements Intervals Rudolph Rate: 81 P: 74 AK: 128 QRS: -1 QRSD: 72 T: 72 QT: 387 QTc: 451 Interpretive Statements SINUS RHYTHM BASELINE ARTIFACT- I, III, AVL, AVF NORMAL ECG COMPARED TO ECG 05/12/2021 16:25:30 NO SIGNIFICANT CHANGES Electronically Signed On 04-03-2022 17:00:53 VENDING ROUTE SERVICER by Diego Crowley D.O.
[2022-04-03 12:38] LABS: Basophils Percent Auto 0.1 % (0.2-1.2); Hematocrit 41.7 % (37.0-47.0); Hemoglobin 13.4 g/dL (12.0-15.0); Immature Granulocyte Absolute 0.02 K/mm3 (0.00-0.031); Immature Granulocyte Percent A 0.3 % (0-0.5); Lymphocytes Percent Auto 11.9 % (18.3-44.2); Mean Corpuscular HGB Conc 32.1 g/dl (32-36); Mean Corpuscular Hemoglobin 28.3 pg (26-34); Mean Platelet Volume 10.9 fl (7.4-10.4); Monocytes Absolute Auto 0.6 K/mm3 (0.1-0.6); Monocytes Percent Auto 7.9 % (2.6-8.5); Neutrophils Percent Auto 79.8 % (45.5-73.1); Platelet Count Result 262 k/mm3 (150-375); Red Blood Count 4.74 M/mm3 (4.2-5.4); Red Cell Distribution Width 13.4 % (11.5-14.5); White Blood Count 7.6 K/mm3 (4.5-10.0)
[2022-04-03 12:48] LABS: Alanine Aminotransferase 20 U/L (6-35); Albumin Level 4.8 g/dL (3.5-5.1); Alkaline Phosphatase 87 U/L (38-126); Anion Gap 13 mmol/L (8-16); Aspartate Amino Transferase 31 U/L (14-36); Bilirubin,Total 1.3 mg/dL (0.2-1.3); Blood Urea Nitrogen 22 mg/dL (7-17); Calcium 9.3 mg/dL (8.4-10.2); Carbon Dioxide 23 mmol/L (22-30); Chloride 94 mmol/L (98-107); Estimated CRCL calculation 23 ml/min; Estimated Glomerular Filt Rate 43; Glucose 122 mg/dL (65-110); Prothrombin Time 12.7 Seconds (11.1-14.7); Sodium 130 mmol/L (137-145)
[2022-04-03 12:49] LABS: Partial Thromboplastin Time 24.6 SECONDS (22.3-36.8)
[2022-04-03 13:29] LABS: Add Urine Microscopic? YES; Appearance Urine Clear (Clear); Bilirubin Urine 1+ (Negative); Blood Urine 1+ (Negative); Color Urine Yellow (Yellow); Glucose Urine UA Negative (Negative); Ketones Urine 1+ mg/dL (Negative); Leukocyte Esterase Ur Negative LEU/UL (Negative); Nitrate Urine Negative (Negative); Protein Urine 3+ mg/dL (Negative); Specific Grav Ur 1.025 (1.001-1.035); Urobilinogen Urine 0.2 mg/dL (<2.0)
[2022-04-03 13:40] LABS: Mucus Urine Rare /lpf; RBC Urine 0-2 /hpf (0-2); Squamous Epithelial Cell Urine Occasional /hpf (Few); WBC Urine 0-3 /hpf
--- NOTE | 2022-04-03 14:20 | ED.GENADULT ---
HPI - General Adult General Chief complaint: Altered Mental Status Stated complaint: AMS x1 week-getting worse Time Seen by Provider: 04/03/22 13:56 Related Data Home Medications Medication Instructions Recorded Confirmed acetaminophen 500 mg tablet 500 mg PO Q6H PRN 07/23/21 02/01/22 albuterol sulfate 90 mcg/actuation 1 puff inhalation Q4H PRN 07/23/21 02/01/22 aerosol inhaler lactobacillus combination no.4 3 3,000 mmu cells PO DAILY 07/23/21 02/01/22 billion cell capsule (Probiotic) Allergies Allergy/AdvReac Type Severity Reaction Status Date / Time Sulfa (Sulfonamide Allergy Severe Swelling Verified 02/01/22 13:34 Antibiotics) Penicillins Allergy Unknown ,swelling, Verified 02/01/22 13:34 vomit aspirin AdvReac Unknown stomach Verified 02/01/22 13:34 pain- Adult ASA ciprofloxacin AdvReac Unknown nausea/vomi Verified 02/01/22 13:34 t metronidazole AdvReac Unknown nausea/vomi Verified 02/01/22 13:34 t naproxen AdvReac Unknown nausea/vomi Verified 02/01/22 13:34 t propoxyphene AdvReac Unknown nausea/vomi Verified 02/01/22 13:34 t [facility] Past Medical History Medical History Abnormal MRI Anxiety Chronic kidney disease, stage 3 Chronic obstructive pulmonary disease Hypertension Surgical History Surgical History History of cataract extraction with lens replacement History of cholecystectomy History of hysterectomy History of tonsillectomy Family History Family History Father No problems noted. Sibling No problems noted. Mother Cerebrovascular accident Social History Social History Social History: Surrogate decision maker: Mechelle Gayle, daughter. Code status: Full code. Smoking packs per day: 1 Smoking cigarettes per day: 20.0 Years smoked: 5 Smoking pack-years: 5.00 Smoking status: Former smoker Second hand tobacco smoke exposure: No Smoking end date: 05/15/06 Alcohol intake: never Substance use: never Substance use type: does not use Additional living arrangements comments: The patient is . She lives in her own home in [place] with her dog. Spiritual care concerns: No Course Vital Signs Vital signs: Vital Signs Temperature 98.2 F 04/03/22 12:13 Pulse Rate 81 04/03/22 12:13 Respiratory Rate 18 04/03/22 12:13 Blood Pressure 155/74 H 04/03/22 12:13 Pulse Oximetry 98 04/03/22 12:13 Oxygen Delivery Room Air 04/03/22 12:13 Temperature 98.2 F 04/03/22 12:13 Pulse Rate 81 04/03/22 12:13 Respiratory Rate 18 04/03/22 12:13 Blood Pressure 155/74 H 04/03/22 12:13 Pulse Oximetry 98 04/03/22 12:13 Oxygen Delivery Room Air 04/03/22 12:13 Medical Decision Making Vital Signs Vital Signs: Vital Signs Temperature 98.2 F 04/03/22 12:13 Pulse Rate 81 04/03/22 12:13 Respiratory Rate 18 04/03/22 12:13 Blood Pressure 155/74 H 04/03/22 12:13 Pulse Oximetry 98 04/03/22 12:13 Oxygen Delivery Room Air 04/03/22 12:13 Temperature 98.2 F 04/03/22 12:13 Pulse Rate 81 04/03/22 12:13 Respiratory Rate 18 04/03/22 12:13 Blood Pressure 155/74 H 04/03/22 12:13 Pulse Oximetry 98 04/03/22 12:13 Oxygen Delivery Room Air 04/03/22 12:13 Lab Data Result diagrams: 04/03/22 12:30 04/03/22 12:30 Labs: Lab Results 04/03/22 04/03/22 04/03/22 Range/Units 12:30 12:30 12:30 WBC 7.6 (4.5-10.0) K/mm3 RBC 4.74 (4.2-5.4) M/mm3 Hgb 13.4 (12.0-15.0) g/dL Hct 41.7 (37.0-47.0) % MCV 88.0 D (80-100) fl MCH 28.3 (26-34) pg MCHC 32.1 (32-36) g/dl RDW 13.4 (11.5-14.5) % Plt Count 262 (150-375) k/mm3 MPV 10.9 H (7.4-10.4) fl Immature Gran %
--- NOTE | 2022-04-03 17:05 | PCCCNOTE ---
Called by Dr. Castillo to meet with family for resources for support for patient. Met with patient and family in ED Rm 12. Patient's grand daughter Mary and one of patient's daughter Laura are at bedside. The patient has two other daughter's Mechelle and Benita that are not here tonight. Patient lives alone and family rotate staying with her. Two daughters that normally help are going back to work part-time and Mary works from home but has to be at her own house. Patient does not want to go to a facility, Discussed adult day care centers like [facility] and [facility] but patient refuses she only wants to be at her house. They want to find a caregiver by word of mouth not through an agency but have not had very good luck. Patient does not have a health care poa, discussion with patient about how it is important but she states that she will not do it. Dr. Castillo at bedside again per family request to discuss medical. Patient is medically ready for dc from ED. Family asked if [place] has a paid caregiver program. Provided family with written resources of private caregivers, assisted living facilities, adult day care centers and the phone # for department of aging to inquire and apply for paid caregiver program.
--- NOTE | 2022-05-28 16:01 | ED.GENADULT ---
HPI - General Adult General Chief complaint: Altered Mental Status Stated complaint: AMS x1 week-getting worse Time Seen by Provider: 04/03/22 13:56 History of Present Illness HPI narrative: 87 yo female prests to ER for confusion. Daughter feels the pt is more confused than usual but pt denies this. Pt has no complaints. Related Data Home Medications Medication Instructions Recorded Confirmed acetaminophen 500 mg tablet 500 mg PO Q6H PRN 07/23/21 02/01/22 albuterol sulfate 90 mcg/actuation 1 puff inhalation Q4H PRN 07/23/21 02/01/22 aerosol inhaler lactobacillus combination no.4 3 3,000 mmu cells PO DAILY 07/23/21 02/01/22 billion cell capsule (Probiotic) Allergies Allergy/AdvReac Type Severity Reaction Status Date / Time Sulfa (Sulfonamide Allergy Severe Swelling Verified 02/01/22 13:34 Antibiotics) Penicillins Allergy Unknown ,swelling, Verified 02/01/22 13:34 vomit aspirin AdvReac Unknown stomach Verified 02/01/22 13:34 pain- Adult ASA ciprofloxacin AdvReac Unknown nausea/vomi Verified 02/01/22 13:34 t metronidazole AdvReac Unknown nausea/vomi Verified 02/01/22 13:34 t naproxen AdvReac Unknown nausea/vomi Verified 02/01/22 13:34 t propoxyphene AdvReac Unknown nausea/vomi Verified 02/01/22 13:34 t [facility] Past Medical History Medical History Abnormal MRI Anxiety Chronic kidney disease, stage 3 Chronic obstructive pulmonary disease Hypertension Surgical History Surgical History History of cataract extraction with lens replacement History of cholecystectomy History of hysterectomy History of tonsillectomy Family History Family History Father No problems noted. Sibling No problems noted. Mother Cerebrovascular accident Social History Social History Social History: Surrogate decision maker: Mechelle Gayle, daughter. Code status: Full code. Smoking packs per day: 1 Smoking cigarettes per day: 20.0 Years smoked: 5 Smoking pack-years: 5.00 Smoking status: Former smoker Second hand tobacco smoke exposure: No Smoking end date: 05/15/06 Alcohol intake: never Substance use: never Substance use type: does not use Additional living arrangements comments: The patient is . She lives in her own home in [place] with her dog. Spiritual care concerns: No Course Vital Signs Vital signs: Vital Signs Temperature 98.2 F 04/03/22 12:13 Pulse Rate 81 04/03/22 12:13 Respiratory Rate 18 04/03/22 12:13 Blood Pressure 155/74 H 04/03/22 12:13 Pulse Oximetry 98 04/03/22 12:13 Oxygen Delivery Room Air 04/03/22 12:13 Temperature 98.2 F 04/03/22 12:13 Pulse Rate 83 04/03/22 17:15 Respiratory Rate 16 04/03/22 17:15 Blood Pressure 165/95 H 04/03/22 17:15 Pulse Oximetry 96 04/03/22 16:25 Oxygen Delivery Room Air 04/03/22 12:13 Medical Decision Making Vital Signs Vital Signs: Vital Signs Temperature 98.2 F 04/03/22 12:13 Pulse Rate 81 04/03/22 12:13 Respiratory Rate 18 04/03/22 12:13 Blood Pressure 155/74 H 04/03/22 12:13 Pulse Oximetry 98 04/03/22 12:13 Oxygen Delivery Room Air 04/03/22 12:13 Temperature 98.2 F 04/03/22 12:13 Pulse Rate 83 04/03/22 17:15 Respiratory Rate 16 04/03/22 17:15 Blood Pressure 165/95 H 04/03/22 17:15 Pulse Oximetry 96 04/03/22 16:25 Oxygen Delivery Room Air 04/03/22 12:13 Lab Data 04/03/22 12:30 04/03/22 12:30 Labs: Lab Results 04/03/22 04/03/22 04/03/22 Range/Units 12:30 12:30 12:30 WBC 7.6 (4.5-10.0) K/mm3 RBC 4.74 (4.2-5.4) M/mm3 Hgb 13.4 (12.0-15.0) g/dL Hct 41.7 (37.0-47.0) % MCV 88.0 D (80-100) fl MCH 2
== END 2022-04-03 17:15 | disposition home or self-care (01) ==
PROVIDERS: Emergency Provider Emergency Medicine; PCP Physician Assistant
DX: F05 Delirium due to known physiological condition (principal); G31.84 Mild cognitive impairment of uncertain or unknown etiology; E87.1 Hypo-osmolality and hyponatremia; I12.9 Hypertensive chronic kidney disease with stage 1 through stage 4 chronic kidney disease, or unspecified chronic kidney disease; N18.30 Chronic kidney disease, stage 3 unspecified; J44.9 Chronic obstructive pulmonary disease, unspecified; Z90.710 Acquired absence of both cervix and uterus; Z86.73 Personal history of transient ischemic attack (TIA), and cerebral infarction without residual deficits; Z87.891 Personal history of nicotine dependence; Z98.42 Cataract extraction status, left eye; Z98.41 Cataract extraction status, right eye; Z96.1 Presence of intraocular lens; Z87.440 Personal history of urinary (tract) infections
CPT/HCPCS: 36415; 70450; 80053; 81001; 85025; 85610; 85730; 93005; 99284

== ENCOUNTER 2022-05-19 14:55 | Outpatient (CLI) | payer MEDICARE, SELFPAY ==
--- NOTE | ~2022-05-19 | MM_ITS ---
EXAMINATION: MM screening [facility] BI w bree HISTORY: Screening mammogram, family history of breast cancer in her sister. TECHNIQUE: Craniocaudal and mediolateral oblique 3-D tomosynthesis images were obtained and synthetic 2-D images were generated. CAD analysis was submitted and interpreted. COMPARISON: 01/11/2021, 12/07/2017 BREAST PARENCHYMAL COMPOSITION: There are scattered areas of fibroglandular density. FINDINGS: No suspicious mass, calcification, or architectural distortion are identified in either deanna ast to suggest malignancy. There has been no suspicious interval change. IMPRESSION: 1. No mammographic evidence of malignancy. 2. Recommend routine screening mammography in one year. BI-RADS Category 1: Negative Reviewed, dictated and finalized at location A. OR DATA MINING ANALYST
== END 2022-05-19 14:56 | disposition home or self-care (01) ==
PROVIDERS: PCP Physician Assistant; Visit Provider Physician Assistant
DX: Z12.31 Encounter for screening mammogram for malignant neoplasm of breast (principal)
CPT/HCPCS: 77063; 77067

== ENCOUNTER 2022-08-10 15:20 | Outpatient (CLI) | payer MEDICARE, SELFPAY | END 2022-08-10 15:21 | disposition home or self-care (01) | PROVIDERS: PCP Physician Assistant; Visit Provider Physician Assistant | DX: E04.9 Nontoxic goiter, unspecified (principal) | CPT/HCPCS: 36415; 84443 ==

== ENCOUNTER 2022-10-06 12:45 | Emergency (ER) | payer MEDICARE, SELFPAY ==
--- NOTE | ~2022-10-06 | XR_ITS ---
EXAMINATION: XR chest 1V DATE: 10/06/2022 14:42 INDICATION: Hypertension. TECHNIQUE: A single frontal view of the chest was obtained. COMPARISON: Chest single view 05/12/2021, CT abdomen and pelvis 02/19/2019 FINDINGS: Calcified bilateral lung nodules and calcified hilar lymph nodes are consistent with old gr anulomatous disease. There is mild atelectasis versus scarring at left lung base. No pleural effusion or pneumothorax. The heart size is normal. Surgical clips in the right upper quadrant are likely fro m cholecystectomy. There are changes of anterior fusion procedure in cervical spine. There are old he aled left rib fractures. IMPRESSION: 1. Mild atelectasis versus scarring at left lung base. Reviewed, dictated and finalized at location E.
--- NOTE | ~2022-10-06 | US_ITS ---
EXAMINATION: US venous doppler [facility] DATE: 10/06/2022 14:42 INDICATION: Lower limb pain. TECHNIQUE: Grayscale ultrasound images without and with compression and Doppler ultrasound images of the bilateral lower extremity veins were obtained. COMPARISON: Ultrasound 06/14/2021 FINDINGS: The visualized portions of right common femoral vein, profunda (deep) femoral vein, femoral vein, pop liteal vein, peroneal veins, posterior tibial veins, and greater saphenous vein outflow are patent. The visualized portions of left common femoral vein, profunda femoral vein, femoral vein, popliteal v ein, peroneal veins, posterior tibial veins, and greater saphenous vein outflow are patent. IMPRESSION: 1. No deep venous thrombosis. Reviewed, dictated and finalized at location E.
[2022-10-06 12:54] VITALS: BP 130/94; PULSE 80; RESP 19; TEMP 36.6; O2SAT 98
[2022-10-06 13:28] VITALS: BP 188/82; PULSE 76
--- NOTE | 2022-10-06 13:48 | ECG_ITS ---
Measurements Intervals [place] Rate: 81 P: 66 [place]: 145 QRS: 0 QRSD: 72 T: 56 QT: 356 QTc: 416 Interpretive Statements SINUS RHYTHM POSSIBLE LEFT ATRIAL ENLARGEMENT BASELINE ARTIFACT- I, III, AVL BORDERLINE ECG COMPARED TO ECG 04/03/2022 12:25:00 NO SIGNIFICANT CHANGES Electronically Signed On 10-06-2022 14:48:23 CDT by Diego Crowley D.O.
--- NOTE | 2022-10-06 14:22 | ED.GENADULT ---
HPI - General Adult General Chief complaint: Recheck/Abnormal Lab/Rx Stated complaint: high BP Time Seen by Provider: 10/06/22 13:15 History of Present Illness HPI narrative: 37-year-old female history of hypertension presented to the emergency department for evaluation of high blood pressure since last night. Patient does take losartan for her blood pressure. Patient denies any recent medication changes. Patient also states that she has had increased lower extremity swelling and tenderness. Patient has no prior history of PE or DVT. Patient denies any associated chest pain or shortness of breath. Patient contacted her primary care physician and was deferred to the emergency department for further work-up including a DVT study Related Data Home Medications Medication Instructions Recorded Confirmed acetaminophen 500 mg tablet 500 mg PO Q6H PRN 07/23/21 08/12/22 albuterol sulfate 90 mcg/actuation 1 puff inhalation Q4H PRN 07/23/21 08/12/22 aerosol inhaler lactobacillus combination no.4 3 3,000 mmu cells PO DAILY 07/23/21 08/12/22 billion cell capsule (Probiotic) Allergies Allergy/AdvReac Type Severity Reaction Status Date / Time Sulfa (Sulfonamide Allergy Severe Swelling Verified 10/06/22 12:46 Antibiotics) Penicillins Allergy Unknown ,swelling, Verified 10/06/22 12:46 vomit aspirin AdvReac Unknown stomach Verified 10/06/22 12:46 pain- Adult ASA ciprofloxacin AdvReac Unknown nausea/vomi Verified 10/06/22 12:46 t metronidazole AdvReac Unknown nausea/vomi Verified 10/06/22 12:46 t naproxen AdvReac Unknown nausea/vomi Verified 10/06/22 12:46 t propoxyphene AdvReac Unknown nausea/vomi Verified 10/06/22 12:46 t Review of Systems Review of Systems: All systems reviewed & are unremarkable except as noted in HPI and below PMFSH Past Medical History Medical History (Updated 10/06/22 @ 16:13 by Nikhil Bhakta MD) Abnormal MRI Anxiety Chronic kidney disease, stage 3 Chronic obstructive pulmonary disease Hypertension Pelvic fracture Surgical History Surgical History History of cataract extraction with lens replacement History of cholecystectomy History of hysterectomy History of tonsillectomy Family History Family History Father No problems noted. Sibling No problems noted. Mother Cerebrovascular accident Social History Social History Social History: Surrogate decision maker: Mechelle Gayle, daughter. Code status: Full code. Smoking packs per day: 1 Smoking cigarettes per day: 20.0 Years smoked: 5 Smoking pack-years: 5.00 Smoking status: Former smoker Second hand tobacco smoke exposure: No Smoking end date: 05/15/06 Alcohol intake: never Substance use: never Substance use type: does not use Lack of Transportation: No Lack of Food: Never True Current Housing: I Have Housing Concerned About Future Housing: No Difficulty Paying Gas/Electric Bills: No Difficulty Paying for Meds: No Currently Unemployed: No Education: High School Diploma/GED Difficulty w/ Childcare or Family Care: No Additional living arrangements comments: The patient is . She lives in her own home in [place] with her dog. Spiritual care concerns: No Exam Narrative: APPEARANCE: Well appearing, no pain, no distress, well-nourished. HEAD: normocephalic, atraumatic. EYES: PERRLA/EOMI, conjunctivae clear. NOSE: Normal no drainage NECK: Supple. No adenopathy, no masses. RESPIRATORY: Airway patent, respirations nonlabored. Clear to auscultation bilaterally, no rales, rhonchi, wheezing. CARDIOVASCULAR: Regular rate and rhythm without murmurs rubs or gallops. ABDOMINAL: Soft, nontender, nondistended, normal bowel sounds MUSCULOSKELETAL: Moves all extrem
[2022-10-06] MEDS: hydrALAZINE HCL 20 MG/ML VIAL 10 MG IV PUSH (14:44)
[2022-10-06 14:52] VITALS: BP 219/94; PULSE 78; RESP 16; O2SAT 100
[2022-10-06 15:01] LABS: Basophils Percent Auto 0.6 % (0.2-1.2); Eosinophils Absolute Auto 0.2 K/mm3 (0-0.3); Eosinophils Percent Auto 3.5 % (0-4.4); Hematocrit 36.4 % (37.0-47.0); Hemoglobin 11.1 g/dL (12.0-15.0); Immature Granulocyte Absolute 0.02 K/mm3 (0.00-0.031); Immature Granulocyte Percent A 0.3 % (0-0.5); Lymphocytes Absolute Auto 0.95 K/mm3 (0.9-3.2); Lymphocytes Percent Auto 13.7 % (18.3-44.2); Mean Corpuscular HGB Conc 30.5 g/dl (32-36); Mean Corpuscular Hemoglobin 27.7 pg (26-34); Mean Corpuscular Volume 90.8 fl (80-100); Mean Platelet Volume 11.1 fl (7.4-10.4); Monocytes Absolute Auto 0.6 K/mm3 (0.1-0.6); Monocytes Percent Auto 9.2 % (2.6-8.5); Neutrophils Percent Auto 72.7 % (45.5-73.1); Platelet Count Result 224 k/mm3 (150-375); Red Blood Count 4.01 M/mm3 (4.2-5.4); Red Cell Distribution Width 13.8 % (11.5-14.5); White Blood Count 6.9 K/mm3 (4.5-10.0)
[2022-10-06 15:11] LABS: Alanine Aminotransferase 16 U/L (6-35); Albumin Level 4.1 g/dL (3.5-5.1); Alkaline Phosphatase 75 U/L (38-126); Anion Gap 7 mmol/L (8-16); Aspartate Amino Transferase 29 U/L (14-36); Bilirubin,Total 0.9 mg/dL (0.2-1.3); Blood Urea Nitrogen 27 mg/dL (7-17); Carbon Dioxide 28 mmol/L (22-30); Chloride 104 mmol/L (98-107); Creatine Kinase 150 U/L (30-135); Estimated CRCL calculation 23 ml/min; Estimated Glomerular Filt Rate 36; Glucose 83 mg/dL (65-110); Magnesium 2.1 mg/dL (1.6-2.3); Potassium 4.7 mmol/L (3.4-5.0); Sodium 139 mmol/L (137-145)
[2022-10-06 15:15] VITALS: BP 185/62; PULSE 100; RESP 20; O2SAT 100
[2022-10-06 15:19] LABS: NT Pro B Type Natriuretic Pept 700 pg/mL (19.9-100)
[2022-10-06 15:25] LABS: Appearance Urine Clear (Clear); Bacteria Urine None Seen /hpf; Bilirubin Urine Negative (Negative); Blood Urine Negative (Negative); Color Urine Yellow (Yellow); Glucose Urine UA Negative (Negative); Ketones Urine Negative (Negative); Leukocyte Esterase Ur Negative LEU/UL (Negative); Nitrate Urine Negative (Negative); Non Pathogenic Casts 0-2; Protein Urine 2+ mg/dL (Negative); RBC Urine 0-2 /hpf (0-2); Specific Grav Ur 1.016 (1.001-1.035); Squamous Epithelial Cell Urine Occasional /hpf (Few); Urobilinogen Urine 0.2 mg/dL (<2.0); WBC Urine 0-5 /hpf; pH Urine 5.5 (5.0-9.0)
[2022-10-06 15:26] LABS: Add Urine Microscopic? YES
[2022-10-06 15:30] VITALS: BP 171/60; PULSE 105; RESP 18; O2SAT 99
[2022-10-06 16:21] VITALS: PULSE 99
[2022-10-06] MEDS: carvediloL 6.25 MG TABLET PO (16:21)
[2022-10-06 16:30] LABS: Thyroid Stimulating Hormone Reflex 0.936 uIU/mL (0.465-4.68)
== END 2022-10-06 16:30 | disposition home or self-care (01) ==
PROVIDERS: Emergency Provider Emergency Medicine; PCP Physician Assistant
DX: I12.9 Hypertensive chronic kidney disease with stage 1 through stage 4 chronic kidney disease, or unspecified chronic kidney disease (principal); N18.30 Chronic kidney disease, stage 3 unspecified; M79.89 Other specified soft tissue disorders; J44.9 Chronic obstructive pulmonary disease, unspecified; Z98.49 Cataract extraction status, unspecified eye; Z96.1 Presence of intraocular lens; Z90.49 Acquired absence of other specified parts of digestive tract; Z90.710 Acquired absence of both cervix and uterus; Z87.891 Personal history of nicotine dependence; R94.31 Abnormal electrocardiogram [ECG] [EKG]
CPT/HCPCS: 36415; 71045; 80053; 81001; 82550; 83735; 83880; 84443; 85025; 93005; 93970; 96374; 99284; A9270; J0360

== ENCOUNTER 2022-10-28 14:37 | Outpatient (CLI) | payer MEDICARE, SELFPAY ==
[2022-10-28 15:22] LABS: Appearance Urine Clear (Clear); Bacteria Urine None Seen /hpf; Bilirubin Urine Negative (Negative); Blood Urine Negative (Negative); Color Urine Yellow (Yellow); Glucose Urine UA Negative (Negative); Ketones Urine Negative (Negative); Leukocyte Esterase Ur Trace LEU/UL (Negative); Nitrate Urine Negative (Negative); Non Pathogenic Casts 0-2; Protein Urine 1+ mg/dL (Negative); RBC Urine 0-2 /hpf (0-2); Specific Grav Ur 1.015 (1.001-1.035); Squamous Epithelial Cell Urine None seen /hpf (Few); Urobilinogen Urine 0.2 mg/dL (<2.0); WBC Urine 0-5 /hpf
[2022-10-28 15:23] LABS: Add Urine Microscopic? YES
== END 2022-10-28 14:38 | disposition home or self-care (01) ==
PROVIDERS: PCP Physician Assistant; Visit Provider Internal Medicine
DX: R41.0 Disorientation, unspecified (principal)
CPT/HCPCS: 81001

== ENCOUNTER 2022-12-02 15:22 | Outpatient (CLI) | payer MEDICARE, SELFPAY ==
--- NOTE | ~2022-12-02 | MR_ITS ---
EXAMINATION: MR brain/brain stem wo con DATE: 12/02/2022 16:43 INDICATION: Disorientation, unspecified. TECHNIQUE: Magnetic resonance imaging (MRI) of the brain and brainstem was performed without intraven ous contrast. COMPARISON: Brain MRI 06/01/2021, head CT 04/03/2022 FINDINGS: There are old infarcts involving the bilateral basal ganglia and internal capsules. There a re scattered areas of nonspecific increased T2-weighted signal intensity in the cerebral white matter and gen. There is a small old infarcts involving the right cerebellum. There is no intracranial hem orrhage, acute infarction, or abnormal intracranial mass lesion. There is ex vacuo dilatation of the bodies of the lateral ventricles. There is mild mucosal thickening in the ethmoid sinuses. There are likely changes of ocular lens replacement surgeries. The mastoid air cells are normal. IMPRESSION: 1. 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 2. Moderate nonspecific cerebral white matter disease and pontine disease, which likely represents ch ronic small vessel ischemic disease, stable from 06/01/2021. Reviewed, dictated and finalized at location A. IMPRESSION: 1. 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 2. Moderate nonspecific cerebral white matter disease and pontine disease, whic h likely represents chronic small vessel ischemic disease, stable from 2.
== END 2022-12-02 15:23 | disposition home or self-care (01) ==
LOC: ANHIMG 15:31
PROVIDERS: PCP Physician Assistant; Visit Provider Physician Assistant
DX: R41.0 Disorientation, unspecified (principal); R90.82 White matter disease, unspecified
CPT/HCPCS: 70551

== ENCOUNTER 2022-12-11 16:18 | Inpatient (IN) | payer MEDICARE, SELFPAY ==
[2022-12-11] VITALS (22 sets, daily range): BP systolic 138–173; BP diastolic 55–84; PULSE 58–100; RESP 16–24; TEMP 36.4–36.8; O2SAT 93–100; BMI 24.0
--- NOTE | ~2022-12-11 | XR_ITS ---
EXAMINATION: XR chest 2V Exam Date/Time: 12/11/2022 16:45 CDT HISTORY: cough, sob Comparison: X-ray chest 10/06/2022 and 06/11/2016; x-ray lumbar spine 11/18/2021. RESULT: Lines, tubes, and devices: Cholecystectomy clips. ACDF hardware. Lungs and pleura: Senescent/emphysematous change. Calcified granulomas and hilar nodes. No focal con solidation or pneumothorax. Cardiomediastinal silhouette: Stable fusiform descending thoracic aortic aneurysm with extensive ashlee cification. Other: No acute osseous or upper abdominal finding. IMPRESSION: No acute cardiopulmonary process. Reviewed, dictated and finalized at location K.
--- NOTE | 2022-12-11 16:27 | ECG_ITS ---
Measurements Intervals [place] Rate: 62 P: 59 [place]: 153 QRS: -9 QRSD: 81 T: 70 QT: 376 QTc: 383 Interpretive Statements SINUS RHYTHM NORMAL ECG COMPARED TO ECG 10/06/2022 14:46:37 NO SIGNIFICANT CHANGES Electronically Signed On 12-12-2022 0:14:03 CDT by Diego Crowley D.O.
[2022-12-11 16:51] LABS: Basophils Percent Auto 0.1 % (0.2-1.2); Hematocrit 39.6 % (37.0-47.0); Hemoglobin 12.2 g/dL (12.0-15.0); Immature Granulocyte Absolute 0.06 K/mm3 (0.00-0.031); Immature Granulocyte Percent A 0.4 % (0-0.5); Lymphocytes Absolute Auto 0.56 K/mm3 (0.9-3.2); Lymphocytes Percent Auto 3.7 % (18.3-44.2); Mean Corpuscular HGB Conc 30.8 g/dl (32-36); Mean Corpuscular Hemoglobin 27.4 pg (26-34); Mean Corpuscular Volume 88.8 fl (80-100); Mean Platelet Volume 10.8 fl (7.4-10.4); Monocytes Absolute Auto 0.7 K/mm3 (0.1-0.6); Monocytes Percent Auto 4.6 % (2.6-8.5); Neutrophils Absolute Auto 13.8 K/mm3 (1.3-6.7); Neutrophils Percent Auto 91.2 % (45.5-73.1); Platelet Count Result 346 k/mm3 (150-375); Red Blood Count 4.46 M/mm3 (4.2-5.4); White Blood Count 15.2 K/mm3 (4.5-10.0)
[2022-12-11] MEDS: ALBUTEROL SULFATE NEB 2.5 MG/3 ML INH 15 MG INHALATION (17:11)
[2022-12-11] MEDS: IPRATROPIUM BR 0.02% INH SOLN 0.5 MG/2.5 ML VIAL 1 MG INHALATION (17:12)
[2022-12-11 17:14] LABS: Alanine Aminotransferase 12 U/L (6-35); Albumin Level 4.3 g/dL (3.5-5.1); Alkaline Phosphatase 83 U/L (38-126); Anion Gap 13 mmol/L (8-16); Aspartate Amino Transferase 25 U/L (14-36); Bilirubin,Total 1.1 mg/dL (0.2-1.3); Blood Urea Nitrogen 71 mg/dL (7-17); Calcium 9.8 mg/dL (8.4-10.2); Carbon Dioxide 13 mmol/L (22-30); Chloride 102 mmol/L (98-107); Estimated CRCL calculation 11 ml/min; Estimated Glomerular Filt Rate 17; Glucose 113 mg/dL (65-110); Ovalocytes 1+ (NORMAL); Platelet Estimate Adequate (Adequate); Potassium 8.4 mmol/L (3.4-5.0); Schistocytes None Seen (NORMAL); Sodium 128 mmol/L (137-145)
[2022-12-11] MEDS: LACTATED RINGERS 1,000 ML 999 ML IV CONT (17:15)
[2022-12-11] MEDS: AZITHROMYCIN 250 MG TABLET 500 MG PO (17:15)
[2022-12-11] MEDS: methylPREDNISolone SOD SUCC 125 MG VIAL IV PUSH (17:15)
[2022-12-11] MEDS: SODIUM POLYSTYRENE SULFONONATE 15 GM/60 ML BTL 30 GM PO (17:43)
--- NOTE | 2022-12-11 17:43 | ED.SOB ---
HPI - SOB/Dyspnea General Chief Complaint: Shortness of Breath/Dyspnea Stated Complaint: weakness & wheezing Time Seen by Provider: 12/11/22 16:33 History of Present Illness HPI Narrative: 87-year-old female presenting with wheezing and cough for the last 2 weeks, and over the last couple of days has been feeling more weak and has not been able to eat or drink per family. Related Data Home Medications Medication Instructions Recorded Confirmed acetaminophen 500 mg tablet 500 mg PO Q6H PRN 07/23/21 10/18/22 albuterol sulfate 90 mcg/actuation 1 puff inhalation Q4H PRN 07/23/21 10/18/22 aerosol inhaler lactobacillus combination no.4 3 3,000 mmu cells PO DAILY 07/23/21 10/18/22 billion cell capsule (Probiotic) Allergies Allergy/AdvReac Type Severity Reaction Status Date / Time Sulfa (Sulfonamide Allergy Severe Swelling Verified 12/11/22 16:32 Antibiotics) Penicillins Allergy Unknown ,swelling, Verified 12/11/22 16:32 vomit aspirin AdvReac Unknown stomach Verified 12/11/22 16:32 pain- Adult ASA ciprofloxacin AdvReac Unknown nausea/vomi Verified 12/11/22 16:32 t metronidazole AdvReac Unknown nausea/vomi Verified 12/11/22 16:32 t naproxen AdvReac Unknown nausea/vomi Verified 12/11/22 16:32 t propoxyphene AdvReac Unknown nausea/vomi Verified 12/11/22 16:32 t Review of Systems Review of Systems: CONST: Tired, fatigue HEENT: No sore throat C/V: No chest pain RESP: Cough, wheezing, shortness of breath GI: Poor appetite : No dysuria. M/S: No joint pain. SKIN: No rash. NEURO: Tired PSYCH: [No depression] [facility] Past Medical History Medical History Abnormal MRI Anxiety Chronic kidney disease, stage 3 Chronic obstructive pulmonary disease Hypertension Pelvic fracture Surgical History Surgical History History of cataract extraction with lens replacement History of cholecystectomy History of hysterectomy History of tonsillectomy Family History Family History Father No problems noted. Sibling No problems noted. Mother Cerebrovascular accident Social History Social History Social History: Surrogate decision maker: Mechelle Gayle, daughter. Code status: Full code. Smoking packs per day: 1 Smoking cigarettes per day: 20.0 Years smoked: 5 Smoking pack-years: 5.00 Smoking status: Former smoker Second hand tobacco smoke exposure: No Smoking end date: 05/15/06 Alcohol intake: never Substance use: never Substance use type: does not use Lack of Transportation: No Lack of Food: Never True Current Housing: I Have Housing Concerned About Future Housing: No Difficulty Paying Gas/Electric Bills: No Difficulty Paying for Meds: No Currently Unemployed: No Education: High School Diploma/GED Difficulty w/ Childcare or Family Care: No Additional living arrangements comments: The patient is . She lives in her own home in [place] with her dog. Spiritual care concerns: No Exam Narrative: EXAMINATION OF ORGAN SYSTEMS/BODY AREAS: Constitutional: Vital signs per nursing GENERAL: Appears tired HEAD: Normal with no signs of head trauma. EYES: EOMI, conjunctiva normal ENT: Hearing grossly intact LUNGS: Nonlabored breathing. Diffuse wheezing bilaterally HEART: [Regular rate and rhythm] ABD: [Soft], [nontender to palpation] EXT: Normal range of motion, no lower extremity swelling SKIN: [No rashes or lesions.] NEURO: [Alert and oriented x 3. No gross focal sensory or strength deficits.] PSYCH: Normal affect Course Vital Signs Vital signs: Vital Signs Pulse Rate 82 12/11/22 16:26 Respiratory Rate 23 H 12/11/22 16:26 Pulse Oximetry 100 12/11/22 16:26
[2022-12-11] MEDS: SODIUM CHLORIDE 0.9% IV 1,000 ML 999 ML IV CONT (17:44)
[2022-12-11] MEDS: CALCIUM GLUCONATE 1,000 MG/10 ML VIAL 2000 MG IV PUSH (17:44)
[2022-12-11] MEDS: SODIUM BICARBONATE 8.4% 50 MEQ/50 ML SYRINGE IV PUSH (17:44)
[2022-12-11] MEDS: DEXTROSE 50% 25 GM/50 ML SYRINGE IV PUSH (17:44)
[2022-12-11] MEDS: INSULIN HUMAN REGULAR (*BKC) 100 UNITS/ML 10 UNITS IV PUSH (17:45)
[2022-12-11 19:37] LABS: Appearance Urine Slightly Cloudy (Clear); Bilirubin Urine 1+ (Negative); Blood Urine Negative (Negative); Color Urine Yellow (Yellow); Glucose Urine UA Trace mg/dL (Negative); Ketones Urine Trace mg/dL (Negative); Leukocyte Esterase Ur Negative LEU/UL (Negative); Nitrate Urine Negative (Negative); Protein Urine 1+ mg/dL (Negative); Urobilinogen Urine 0.2 mg/dL (<2.0)
[2022-12-11 19:53] LABS: Anion Gap 10 mmol/L (8-16); Blood Urea Nitrogen 66 mg/dL (7-17); Calcium 10.3 mg/dL (8.4-10.2); Carbon Dioxide 17 mmol/L (22-30); Chloride 101 mmol/L (98-107); Estimated CRCL calculation 12 ml/min; Estimated Glomerular Filt Rate 19; Glucose 181 mg/dL (65-110); Sodium 128 mmol/L (137-145)
[2022-12-11 19:55] LABS: Add Urine Microscopic? YES
[2022-12-11 19:56] LABS: Bacteria Urine Trace /hpf; RBC Urine 0-2 /hpf (0-2); Squamous Epithelial Cell Urine Few /hpf (Few); WBC Urine 0-3 /hpf (0-3)
--- NOTE | 2022-12-11 20:13 | PM.IMHP ---
H&P: HPI History of Present Illness Date/Time: 12/11/22 20:00 Chief Complaint: Weakness. Narrative: This is a very pleasant 87-year-old female with history of TIA, dementia, hypertension, chronic kidney disease, COPD, GERD, hypothyroidism, and anxiety who presented to the emergency department via EMS from home for evaluation of weakness. The patient provides some of the following history however her daughter and granddaughter at bedside provides additional information, with the patient's permission. She has not been eating or drinking well for upwards of a week. Initially the patient told her family members that she was not feeling well and she mentioned vague abdominal discomfort. Since Monday she has had little oral intake, drinking small amounts of a smoothie, having a couple of bites of pop tart, but not much else. Several days ago she had a dark, foul smelling stool but she has not had a bowel movement since that time. She has become increasingly weak and has continued to refuse to go to the doctor for evaluation. Family members insisted that she come in today as she appeared to be short of breath and they called 911. She denies fever, chills, sweats, chest pain, pleuritic pain, cough, vomiting, and diarrhea. She denies significant GERD symptoms but reports that she does have indigestion on occasion. Abdomen is perhaps mildly bloated and she does endorse belching. She had a dark stool earlier this week as per HPI but no BM since that time. She was afebrile on arrival to the ED with blood pressures in the 170s over 60s. Labs were significant for a WBC count of 15.2, hemoglobin 12.2, sodium 128, potassium 8.4, chloride 102, carbon dioxide 13, BUN 71, creatinine 2.70. EKG showed a sinus rhythm with peaked T-waves. She was immediately treated for the hyperkalemia with improvement in her potassium to 6.0. She has been started on IV fluids and is being admitted in this setting for further treatment and evaluation. It should be noted that the patient wishes to be a DNR/DNI and she would not consider doing dialysis even temporarily. Currently she has no specific complaints. She actually reports being a bit hungry and is asking for a sandwich. Review of Systems Review of Systems: Twelve systems were reviewed and are negative except for as per HPI. [facility] Past Medical History Medical History (Updated 12/12/22 @ 00:10 by Lizzie Mcduffie PA-C) Anxiety Cerebrovascular accident Chronic kidney disease, stage 3 Chronic obstructive pulmonary disease Dementia Hypertension Pelvic fracture Surgical History Surgical History History of cataract extraction with lens replacement History of cholecystectomy History of hysterectomy History of tonsillectomy Family History Family History Father No problems noted. Sibling No problems noted. Mother Cerebrovascular accident Social History Social History (Updated 12/12/22 @ 00:07 by Lizzie Mcduffie PA-C) Social History: Surrogate decision maker: Mechelle Gayle, daughter. Code status: DNR/DNI. Smoking packs per day: 1 Smoking cigarettes per day: 20.0 Years smoked: 5 Smoking pack-years: 5.00 Smoking status: Former smoker Tobacco type: cigarettes Second hand tobacco smoke exposure: No Smoking end date: 05/15/06 Alcohol intake: never Substance use: never Substance use type: does not use Lack of Transportation: No Lack of Food: Never True Current Housing: I Have Housing Concerned About Future Housing: No Difficulty Paying Gas/Electric Bills: No Difficulty Paying for Meds: No Currently Unemployed: No Education: High School Diploma/GED Difficulty w/ Childcare or Family Care: No Additional living arrangements comments: The patient is . She lives in her own home in [place] with her dog. Spiritual care concerns:
[2022-12-11] MEDS: IPRATROPIUM BR 0.02% INH SOLN 0.5 MG/2.5 ML VIAL INHALATION (21:22)
[2022-12-11] MEDS: ALBUTEROL SULFATE NEB 2.5 MG/3 ML INH INHALATION (21:22)
--- NOTE | 2022-12-11 22:35 | ADMGEN ---
This patient, Nicol Fernandez, was admitted to 2 Medical Room 259-01. Patient/family oriented to hospital policies and general routines including ID bracelet, bed and alarms, visiting hours, pain management, procedures, bathroom and other care routines, personal items, smoking policy, room service/diet, and visiting hours. Information on how to activate the Rapid Response Team has been discussed. Patient/Family are encouraged to report perceived risks to care and to ask questions if they do not understand what they are told or what they should do.
[2022-12-12] VITALS (11 sets, daily range): BP systolic 102–150; BP diastolic 58–73; PULSE 69–130; RESP 16–18; TEMP 35.8–36.9; O2SAT 81–99
[2022-12-12 00:35] LABS: Anion Gap 6 mmol/L (8-16); Blood Urea Nitrogen 63 mg/dL (7-17); Carbon Dioxide 16 mmol/L (22-30); Chloride 105 mmol/L (98-107); Estimated CRCL calculation 14 ml/min; Estimated Glomerular Filt Rate 22; Glucose 171 mg/dL (65-110); Potassium 5.9 mmol/L (3.4-5.0); Sodium 127 mmol/L (137-145)
[2022-12-12] MEDS: LACTATED RINGERS 1,000 ML 100 ML IV CONT ×3 (01:17→16:29)
[2022-12-12 07:30] LABS: Hemoglobin 9.9 g/dL (12.0-15.0); Mean Corpuscular HGB Conc 30.9 g/dl (32-36); Mean Corpuscular Hemoglobin 27.2 pg (26-34); Mean Corpuscular Volume 87.9 fl (80-100); Mean Platelet Volume 11.1 fl (7.4-10.4); Platelet Count Result 268 k/mm3 (150-375); Red Blood Count 3.64 M/mm3 (4.2-5.4); Red Cell Distribution Width 13.9 % (11.5-14.5); White Blood Count 12.5 K/mm3 (4.5-10.0)
[2022-12-12 07:34] LABS: Anion Gap 5 mmol/L (8-16); Blood Urea Nitrogen 58 mg/dL (7-17); Calcium 8.9 mg/dL (8.4-10.2); Carbon Dioxide 20 mmol/L (22-30); Chloride 103 mmol/L (98-107); Estimated CRCL calculation 15 ml/min; Estimated Glomerular Filt Rate 25; Glucose 135 mg/dL (65-110); Magnesium 1.5 mg/dL (1.6-2.3); Potassium 5.2 mmol/L (3.4-5.0); Sodium 128 mmol/L (137-145)
[2022-12-12] MEDS: carvediloL 12.5 MG TABLET PO ×2 (09:46→20:41)
[2022-12-12] MEDS: PANTOPRAZOLE SODIUM IV 40 MG VIAL IV PUSH ×2 (09:47→20:41)
[2022-12-12] MEDS: dilTIAZem HCL CD 120 MG CAP.24HR PO (09:47)
[2022-12-12] MEDS: ACIDOPHILUS/BULGARICUS CHEWABLE TABLET 2 TABLET BY MOUTH (09:47)
[2022-12-12] MEDS: GABAPENTIN 300 MG CAPSULE PO (09:47)
--- NOTE | 2022-12-12 10:05 | WPDGICN ---
Assessment and Plan Assessment and plan (1) Melena: Code(s): K92.1 - Melena Status: Acute Assessment and Plan: she has had dark stools for several days along with her drop in hemoglobin. Upper gastrointestinal bleed is suspected. She takes Naprosyn daily and likely has NSAID induced ulcer. EGD is scheduled for tomorrow. I have discussed the procedure with her including the risks (2) Anemia: Code(s): D64.9 - Anemia, unspecified Status: Acute Assessment and Plan: This appears to be acute based on the fact that her blood count has dropped from 12.2-9.9. MCV is normal (3) Acute hyperkalemia: Code(s): E87.5 - Hyperkalemia Status: Acute Assessment and Plan: initial potassium was 8.4 it is now in the normal range. (4) Chronic kidney disease, stage 3: Code(s): N18.30 - Chronic kidney disease, stage 3 unspecified Status: Acute Assessment and Plan: Her normal creatinine is 1.4. On this admission is 2.7. This likely represents acute on chronic kidney disease, an or pre renal factor. GI Consult Note Consult date/time: 12/12/22 10:05 HPI: Nicol Fernandez is a 87 year old female With history of dementia, chronic kidney disease, COPD, hypothyroidism, history of TIA, who was brought to the hospital with poor oral intake. She also has been feeling weak lately. She states that her stools have been dark for few days. She states she had ulcers years ago. I asked her if she is having abdominal pain she says not today. He she cannot recall the symptoms that she had with her previous ulcer, whether not it was bleeding. Her blood counts have dropped from 12.2 and 39.6 yesterday to 9.9 and 32 today. the family brought her to the emergency room because she was becoming short of breath. She has not been coughing. Review of Systems Review of Systems: All systems reviewed & are unremarkable except as noted in HPI and below PMFSH Past Medical History Medical History Anxiety Cerebrovascular accident Chronic kidney disease, stage 3 Chronic obstructive pulmonary disease Dementia Hypertension Pelvic fracture Surgical History Surgical History History of cataract extraction with lens replacement History of cholecystectomy History of hysterectomy History of tonsillectomy Family History Family History Father No problems noted. Sibling No problems noted. Mother Cerebrovascular accident Social History Social History Social History: Surrogate decision maker: Mechelle Gayle, daughter. Code status: DNR/DNI. Smoking packs per day: 1 Smoking cigarettes per day: 20.0 Years smoked: 5 Smoking pack-years: 5.00 Smoking status: Former smoker Tobacco type: cigarettes Second hand tobacco smoke exposure: No Smoking end date: 05/15/06 Alcohol intake: never Substance use: never Substance use type: does not use Lack of Transportation: No Lack of Food: Never True Current Housing: I Have Housing Concerned About Future Housing: No Difficulty Paying Gas/Electric Bills: No Difficulty Paying for Meds: No Currently Unemployed: No Education: High School Diploma/GED Difficulty w/ Childcare or Family Care: No Additional living arrangements comments: The patient is . She lives in her own home in [place] with her dog. Spiritual care concerns: No Meds Home Medications and Allergies Home Medications Medication Instructions Recorded Confirmed Type acetaminophen 500 mg tablet 500 mg PO Q6H PRN Pain 07/23/21 12/11/22 History lactobacillus combination no.4 3 3,000 mmu cells PO QAM 07/23/21 12/11/22 History billion cell capsule (Probiotic) naproxen 500 mg tablet 500 mg PO B
--- NOTE | 2022-12-12 11:31 | PM.IMPN ---
Progress Note: A&P Assessment and Plan (1) Acute hyperkalemia: Code(s): E87.5 - Hyperkalemia Status: Acute (2) Acute kidney injury superimposed on chronic kidney disease: Code(s): N17.9 - Acute kidney failure, unspecified; N18.9 - Chronic kidney disease, unspecified Status: Acute (3) Dehydration: Code(s): E86.0 - Dehydration Status: Acute (4) Dyspepsia: Code(s): R10.13 - Epigastric pain Status: Acute (5) Hypertension: Qualifiers: Hypertension type: primary hypertension Qualified Code(s): I10 - Essential (primary) hypertension Code(s): I10 - Essential (primary) hypertension Status: Acute (6) Chronic obstructive pulmonary disease: Code(s): J44.9 - Chronic obstructive pulmonary disease, unspecified Status: Acute Plan The patient presented to the emergency department for evaluation of weakness as per HPI. Labs, imaging, EKG, and all reports were personally reviewed. Labs showed an acute on chronic kidney injury with profound hyperkalemia and a potassium of 8.4. EKG did demonstrate peak T-wave but she was remarkably in a sinus rhythm. She was started on IV fluids and received appropriate treatment for the hyperkalemia with improvement in her potassium to 6.0. She is receiving further treatment at the time of this dictation. After discussions with the patient and her family members, she reiterates that she is a DNR/DNI and she would not want dialysis even on a temporary basis. Her acute kidney injury is most likely due to poor oral intake in the setting of KIRILL-inhibitor and potassium-sparing diuretic use. Spironolactone and losartan are both on hold for now. Hold naproxen as well as other nephrotoxic agents. Continue judicious IV fluid rehydration overnight with close monitoring of I/O. Blood pressures have been running high and will be monitored closely. She has been complaining of vague abdominal discomfort, bloating, and belching and daughter remarks that she had a dark stool earlier this week. It is possible that she may have esophagitis, gastritis, or even ulcers. She has been started on pantoprazole. GI has been consulted for possible endoscopy. Her home medications will be reviewed and resumed as appropriate. Subjective Date/time seen: 12/12/22 11:31 Interval history: No new complaints. Patient is confused. This is her baseline. Exam Narrative: General:? Mildly ill-appearing elderly female in the semi-Collado position in bed. Weight: 50.7 kg. BMI: 24.1. HEENT:??Normocephalic, atraumatic.? PERRL, EOMI.? Sclerae anicteric.? Tacky mucous membranes. Neck:??Supple. Respiratory:?Lungs are clear to auscultation bilaterally. Cardiovascular:??Regular rate and rhythm with S1-S2. Gastrointestinal:??Abdomen is soft and slightly distended with positive bowel sounds. No significant tenderness to palpation. No guarding or rebound tenderness. Skin:??Warm and dry.? Extremities:??No cyanosis, clubbing, or edema. Radial and pedal pulses intact. Neurological:??Alert to name and month and day of .? She is aware that she is at the hospital. Cranial nerves 2-12 are grossly intact. Generalized weakness without obvious focal findings. Psychiatric:?Pleasantly confused and cooperative. Objective Data Vital Signs Vital Signs: Vital Signs - 24 hr 12/11/22 16:27 12/11/22 17:14 12/11/22 17:18 Temperature 98.3 F Pulse Rate 97 76 Respiratory Rate 22 H 22 H Blood Pressure 173/69 H Pulse Oximetry 100 97 Oxygen Delivery Room Air Room Air 12/11/22 16:26 12/11/22 16:27 12/11/22 16:30 Temperature Pulse Rate 82 95 100 Respiratory Rate 23 H 24 H 21 H Blood Pressure 173/69 H Pulse Oximetry 100 98 93 Oxygen Delivery 12/11/22 16:31 12/11/22 16:50 12/11/22 16:51 Temperature Pulse Rate 61 64 58 L Respiratory Rate 24 H 20 20 Blood Pressure 160/70 H 152/74 H Pulse Oximetry 98 100 97 Oxygen Delivery 12/11/22 17:00 12/11/22 1
[2022-12-12 19:24] LABS: Anion Gap 5 mmol/L (8-16); Blood Urea Nitrogen 54 mg/dL (7-17); Calcium 8.6 mg/dL (8.4-10.2); Carbon Dioxide 19 mmol/L (22-30); Chloride 103 mmol/L (98-107); Estimated CRCL calculation 16 ml/min; Estimated Glomerular Filt Rate 27; Glucose 108 mg/dL (65-110); Potassium 5.4 mmol/L (3.4-5.0); Sodium 127 mmol/L (137-145)
[2022-12-13] VITALS (14 sets, daily range): BP systolic 120–162; BP diastolic 44–69; PULSE 60–85; RESP 14–25; TEMP 36.1–36.4; O2SAT 94–97
[2022-12-13] MEDS: LACTATED RINGERS 1,000 ML 100 ML IV CONT ×2 (02:29→17:08)
[2022-12-13 06:46] LABS: Anion Gap 4 mmol/L (8-16); Blood Urea Nitrogen 43 mg/dL (7-17); Calcium 8.2 mg/dL (8.4-10.2); Carbon Dioxide 23 mmol/L (22-30); Chloride 105 mmol/L (98-107); Estimated CRCL calculation 18 ml/min; Estimated Glomerular Filt Rate 27; Glucose 85 mg/dL (65-110); Sodium 132 mmol/L (137-145)
[2022-12-13] MEDS: carvediloL 12.5 MG TABLET PO ×2 (09:33→20:56)
[2022-12-13] MEDS: ACIDOPHILUS/BULGARICUS CHEWABLE TABLET 2 TABLET BY MOUTH (09:33)
[2022-12-13] MEDS: dilTIAZem HCL CD 120 MG CAP.24HR PO (09:41)
[2022-12-13] MEDS: GABAPENTIN 300 MG CAPSULE PO (09:41)
[2022-12-13] MEDS: PANTOPRAZOLE SODIUM IV 40 MG VIAL IV PUSH ×2 (09:41→20:56)
--- NOTE | 2022-12-13 10:57 | PM.IMPN ---
Progress Note: A&P Assessment and Plan (1) Acute hyperkalemia: Code(s): E87.5 - Hyperkalemia Status: Acute Assessment and Plan: Electrolytes improved. Monitor (2) Acute kidney injury superimposed on chronic kidney disease: Code(s): N17.9 - Acute kidney failure, unspecified; N18.9 - Chronic kidney disease, unspecified Status: Acute Assessment and Plan: Kidney function improved. Creatinine today is 1.9, baseline 1.2 (3) Dehydration: Code(s): E86.0 - Dehydration Status: Acute Assessment and Plan: Improved (4) Dyspepsia: Code(s): R10.13 - Epigastric pain Status: Acute Assessment and Plan: Monitor (5) Hypertension: Qualifiers: Hypertension type: primary hypertension Qualified Code(s): I10 - Essential (primary) hypertension Code(s): I10 - Essential (primary) hypertension Status: Acute Assessment and Plan: Monitor (6) Chronic obstructive pulmonary disease: Code(s): J44.9 - Chronic obstructive pulmonary disease, unspecified Status: Acute Assessment and Plan: History of Compensated Subjective Date/time seen: 12/13/22 10:57 Interval history: no new complaints resp status ok cr improving Exam Narrative: General:? Mildly ill-appearing elderly female in the semi-Collado position in bed. Weight: 50.7 kg. BMI: 24.1. HEENT:??Normocephalic, atraumatic.? PERRL, EOMI.? Sclerae anicteric.? Tacky mucous membranes. Neck:??Supple. Respiratory:?Lungs are clear to auscultation bilaterally. Cardiovascular:??Regular rate and rhythm with S1-S2. Gastrointestinal:??Abdomen is soft and slightly distended with positive bowel sounds. No significant tenderness to palpation. No guarding or rebound tenderness. Skin:??Warm and dry.? Extremities:??No cyanosis, clubbing, or edema. Radial and pedal pulses intact. Neurological:??Alert to name and month and day of .? She is aware that she is at the hospital. Cranial nerves 2-12 are grossly intact. Generalized weakness without obvious focal findings. Psychiatric:?Pleasantly confused and cooperative. Objective Data Vital Signs Vital Signs: Vital Signs - 24 hr 12/12/22 14:15 12/12/22 12:00 12/12/22 16:00 Temperature 98.4 F Pulse Rate 69 72 85 Respiratory Rate 16 Blood Pressure 113/71 Pulse Oximetry 99 Oxygen Delivery Oxygen Flow Rate 12/12/22 20:00 12/12/22 21:41 12/12/22 20:00 Temperature 98.4 F Pulse Rate 85 71 81 Respiratory Rate 16 16 Blood Pressure 143/58 H Pulse Oximetry 99 97 Oxygen Delivery Nasal Cannula Oxygen Flow Rate 2 12/13/22 00:00 12/13/22 04:00 12/13/22 04:50 Temperature 97.4 F L Pulse Rate 68 63 68 Respiratory Rate 16 Blood Pressure 142/54 H Pulse Oximetry 95 Oxygen Delivery Oxygen Flow Rate 12/13/22 09:33 Temperature Pulse Rate 85 Respiratory Rate Blood Pressure Pulse Oximetry Oxygen Delivery Oxygen Flow Rate Intake/Output Intake/Output: Intake & Output 12/10/22 12/11/22 12/12/22 12/13/22 23:59 23:59 23:59 23:59 Intake Total 2000 2900 1000 Output Total 200 Balance 1800 2900 1000 Meds/Results Medications: Active Medications Generic Name Dose Route Start Last Admin Trade Name Freq PRN Reason Stop Dose Admin Acetaminophen 650 mg 12/12/22 00:16 Acetaminophen 325 Mg Tablet PO Q6H PRN Mild Pain (1-3) or Fever Carvedilol 12.5 mg 12/12/22 09:00 12/13/22 09:33 Carvedilol 12.5 Mg Tablet PO 12.5 mg Q12HR LJ Administration Dextrose 12.5 gm 12/11/22 17:18 Dextrose 50% 25 Gm/50 Ml Syringe IV PUSH PRN PRN Hypoglycemia Protocol Diltiazem HCl 120 mg 12/12/22 09:00 12/13/22 09:41 Diltiazem Hcl Cd 120 Mg Cap.24hr PO 120 mg DAILY LJ Administration Gabapentin 300 mg 12/12/22 09:00 12/13/22 09:41 Gabapentin 300 Mg Capsule PO 300 mg QAM LJ Administration Glucagon 1 mg
--- NOTE | 2022-12-13 12:02 | WPDANESEPPF ---
Anes - Initial Pre Proc Eval Procedure: Operation Date: 12/13/22 12:30 Proposed Procedures p Esophagogastroduodenoscopy - Laron Parsons MD Date/Time: 12/13/22 12:02 Surgeon: Thong Malone MD Pre Op Diagnosis: HyperK,COPD exac,ADAMS Patient Data Age: 87 Gender: F Height: 1.56 m Weight: 64.4 kg Last Vital Signs Temp 97.4 F L 12/13/22 04:50 Pulse 85 12/13/22 09:33 Resp 16 12/13/22 04:50 BP 142/54 H 12/13/22 04:50 Pulse Ox 95 12/13/22 04:50 O2 Del Method Nasal Cannula 12/12/22 20:00 O2 Flow Rate 2 12/12/22 20:00 Allergies Allergy/AdvReac Type Severity Reaction Status Date / Time Sulfa (Sulfonamide Allergy Severe Swelling Verified 12/11/22 16:32 Antibiotics) Penicillins Allergy Unknown ,swelling, Verified 12/11/22 16:32 vomit aspirin AdvReac Unknown stomach Verified 12/11/22 16:32 pain- Adult ASA ciprofloxacin AdvReac Unknown nausea/vomi Verified 12/11/22 16:32 t metronidazole AdvReac Unknown nausea/vomi Verified 12/11/22 16:32 t naproxen AdvReac Unknown nausea/vomi Verified 12/11/22 16:32 t propoxyphene AdvReac Unknown nausea/vomi Verified 12/11/22 16:32 t Home Medications Medication Instructions Recorded Confirmed Type acetaminophen 500 mg tablet 500 mg PO Q6H PRN Pain 07/23/21 12/11/22 History lactobacillus combination no.4 3 3,000 mmu cells PO QAM 07/23/21 12/11/22 History billion cell capsule (Probiotic) naproxen 500 mg tablet 500 mg PO BID #180 tabs 08/10/22 12/11/22 Rx carvedilol 12.5 mg tablet 12.5 mg PO Q12H #60 tabs 10/18/22 12/11/22 Rx diltiazem HCl 120 mg capsule,24 120 mg PO DAILY #90 caps 11/25/22 12/11/22 Rx hr,extended release spironolactone 50 mg tablet 50 mg PO BID #180 tabs 11/30/22 12/11/22 Rx cholecalciferol (vitamin D3) 25 25 mcg PO QAM 12/11/22 12/11/22 History mcg (1,000 unit) capsule cyanocobalamin (vitamin B-12) 1,000 mcg PO QAM 12/11/22 12/11/22 History 1,000 mcg tablet (Vitamin B-12) gabapentin 300 mg capsule 300 mg PO QAM 12/11/22 12/11/22 History losartan 100 mg tablet 100 mg PO QAM 12/11/22 12/11/22 History lorazepam 0.5 mg tablet 0.5 mg PO QHS PRN anxiety #30 tabs 12/12/22 Rx Laboratory Tests 12/12/22 12/13/22 18:59 06:05 Sodium 127 L mmol/L 132 L mmol/L (137-145) (137-145) Potassium 5.4 H mmol/L 5.0 mmol/L (3.4-5.0) (3.4-5.0) Chloride 103 mmol/L 105 mmol/L (98-107) (98-107) Carbon Dioxide 19 L mmol/L 23 mmol/L (22-30) (22-30) Anion Gap 5 L mmol/L 4 L mmol/L (8-16) (8-16) BUN 54 H mg/dL 43 H D mg/dL (7-17) (7-17) Creatinine 1.80 H mg/dL 1.80 H mg/dL (0.7-1.0) (0.7-1.0) Estim Creat Clear Calc 16 ml/min 18 ml/min Estimated GFR 27 L 27 L (59 - ) (59 - ) Glucose 108 mg/dL 85 mg/dL (65-110) (65-110) Calcium 8.6 mg/dL 8.2 L mg/dL (8.4-10.2) (8.4-10.2) Patient hx anesthesia problems: none Family hx anesthesia problems: none Results Review: All pre-operative results and documents have been reviewed as part of the pre-operative evaluation. [facility] Past Medical History Medical History Anxiety Cerebrovascular accident Chronic kidney disease, stage 3 Chronic obstructive pulmonary disease Dementia Hypertension Pelvic fracture Surgical History Surgical History History of cataract extraction with lens replacement History of cholecystectomy History of hysterectomy History of tonsillectomy Family History Family History Father No problems noted. Sibling No problems noted. Mother Cerebrovascular accident Social History Social History Social History: Surrogate decision maker: Mechelle Gayle, daughter. Code status: DNR/DNI. Smoking packs per day: 1 S
[2022-12-13] MEDS: LACTATED RINGERS 1,000 ML 150 ML IV CONT (12:06)
[2022-12-13] MEDS: EPINEPHrine INJ 1 MG/10 ML SYRINGE 0.2 MG XX (12:28)
[2022-12-14] VITALS: PULSE 76
[2022-12-14] MEDS: LACTATED RINGERS 1,000 ML 100 ML IV CONT (03:36)
[2022-12-14 04:00] VITALS: PULSE 70
[2022-12-14 05:44] VITALS: BP 174/52; PULSE 66; RESP 14; TEMP 36.4; O2SAT 94
[2022-12-14 07:00] LABS: Hematocrit 30.8 % (37.0-47.0); Hemoglobin 9.8 g/dL (12.0-15.0); Mean Corpuscular HGB Conc 31.8 g/dl (32-36); Mean Corpuscular Hemoglobin 28.3 pg (26-34); Mean Platelet Volume 10.7 fl (7.4-10.4); Platelet Count Result 206 k/mm3 (150-375); Red Blood Count 3.46 M/mm3 (4.2-5.4); Red Cell Distribution Width 14.2 % (11.5-14.5); White Blood Count 7.7 K/mm3 (4.5-10.0)
--- NOTE | 2022-12-14 07:17 | WPDGIPROGNO ---
Progress Note: A&P Assessment and Plan (1) Melena: Code(s): K92.1 - Melena Status: Acute Assessment and Plan: she has had dark stools for several days along with her drop in hemoglobin. Upper gastrointestinal bleed is suspected. She takes Naprosyn daily and likely has NSAID induced ulcer. EGD is scheduled for tomorrow. I have discussed the procedure with her including the risks 12/14/2022 revealed large gastric ulcer which appeared benign. Biopsies are pending. She also had several duodenal ulcers the largest being in the bulb. There is no further sign of bleeding. (2) Anemia: Code(s): D64.9 - Anemia, unspecified Status: Acute Assessment and Plan: This appears to be acute based on the fact that her blood count has dropped from 12.2-9.9. MCV is normal (3) Acute hyperkalemia: Code(s): E87.5 - Hyperkalemia Status: Acute Assessment and Plan: initial potassium was 8.4 it is now in the normal range. (4) Chronic kidney disease, stage 3: Code(s): N18.30 - Chronic kidney disease, stage 3 unspecified Status: Acute Assessment and Plan: Her normal creatinine is 1.4. On this admission is 2.7. This likely represents acute on chronic kidney disease, an or pre renal factor. Plan Biopsies of her ulcer should be back by tomorrow. This will tell us if she has H pylori. For now I told her she should not be on Naprosyn. Her daughter is going to help supervise that. She also will be taking pantoprazole 40 mg twice a day for several weeks. Repeat EGD will be done in about 6-8 weeks. Subjective Date/time seen: 12/14/22 07:17 sleeping but arouses easily. Denies any complaints. no signs of bleeding per staff Exam Const: General: alert Orientation/consciousness: patient oriented x3 HENMT: Teeth and gingiva: edentulous Resp: Auscultation: clear to auscultation bilaterally Cardio: Rhythm: regular rhythm GI: Inspection: normal to inspection GI Palp: No abdominal tenderness, Yes Soft to palpation and No Guarding due to palpation present (GI) Auscultation: normal bowel sounds Neuro: General: patient oriented x3 Objective Data Vital Signs Vital Signs: Vital Signs - 24 hr 12/13/22 09:33 12/13/22 12:01 12/13/22 12:30 Temperature 36.1 C L Pulse Rate 85 68 63 Respiratory Rate 20 25 H Blood Pressure 161/55 H 122/50 L Pulse Oximetry 97 97 Oxygen Delivery Room Air Room Air 12/13/22 12:40 12/13/22 12:50 12/13/22 09:30 Temperature Pulse Rate 60 60 Respiratory Rate 19 20 Blood Pressure 162/44 H 120/47 L Pulse Oximetry 96 94 96 Oxygen Delivery Room Air Room Air Room Air 12/13/22 14:00 12/13/22 08:00 12/13/22 20:56 Temperature 36.4 C L Pulse Rate 70 80 70 Respiratory Rate 18 Blood Pressure 157/63 H Pulse Oximetry 97 Oxygen Delivery 12/13/22 21:30 12/13/22 20:00 12/13/22 20:00 Temperature 36.2 C L Pulse Rate 71 71 82 Respiratory Rate 14 14 Blood Pressure 150/69 H Pulse Oximetry 96 96 Oxygen Delivery Room Air 12/14/22 00:00 12/14/22 05:44 12/14/22 04:00 Temperature 36.4 C L Pulse Rate 76 66 70 Respiratory Rate 14 Blood Pressure 174/52 H Pulse Oximetry 94 Oxygen Delivery Intake/Output Intake/Output: Intake & Output 12/11/22 12/12/22 12/13/22 12/14/22 23:59 23:59 23:59 23:59 Intake Total 1999 2900 2120 1000 Output Total 200 Balance 1800 2900 2120 1000 Meds/Results Medications: Active Medications Generic Name Dose Route Start Last Admin Trade Name Wonq PRN Reason Stop Dose Admin Acetaminophen 650 mg 12/12/22 00:16 Acetaminophen 325 Mg Tablet PO Q6H PRN Mild Pain (1-3) or Fever Carvedilol 12.5 mg 12/12/22 09:00 12/13/22 20:56 Carvedilol 12.5 Mg Tablet PO 12.5 mg Q12HR LJ Administration Dextrose 12.5 gm 12/11/22 17:18 Dextrose 50% 25 Gm/50 Ml Syringe IV PUSH PRN PRN Hypoglycemia Protocol
[2022-12-14 08:00] VITALS: PULSE 67
--- NOTE | 2022-12-14 09:28 | WPDANESPN ---
Anes - Prog Note Post-Op Date/Time: 12/14/22 09:28 Cardiovascular status: normal Respiratory status: normal Airway patency: baseline Mental status: baseline Post-Op hydration status: normal Vital Signs: Last Vital Signs Temp 36.4 C L 12/14/22 05:44 Pulse 66 12/14/22 05:44 Resp 14 12/14/22 05:44 BP 174/52 H 12/14/22 05:44 Pulse Ox 94 12/14/22 05:44 O2 Del Method Room Air 12/14/22 08:27 O2 Flow Rate 2 12/12/22 20:00 Pain Score (VAS): 0 I/O: Intake & Output 12/13/22 12/14/22 12/14/22 23:59 07:59 15:59 Intake Total 120 1000 Balance 120 1000 Laboratory Tests 12/14/22 06:52 12/13/22 06:05 12/14/22 06:52 WBC 7.7 RBC 3.46 L Hgb 9.8 L Hct 30.8 L MCV 89.0 MCH 28.3 MCHC 31.8 L RDW 14.2 Plt Count 206 MPV 10.7 H Post-procedural complaints: none Patient Feedback: Patient satisfied with anesthetic care.
[2022-12-14] MEDS: carvediloL 12.5 MG TABLET PO (10:02)
[2022-12-14] MEDS: GABAPENTIN 300 MG CAPSULE PO (10:02)
[2022-12-14] MEDS: ACIDOPHILUS/BULGARICUS CHEWABLE TABLET 2 TABLET BY MOUTH (10:02)
[2022-12-14] MEDS: PANTOPRAZOLE SODIUM IV 40 MG VIAL IV PUSH (10:02)
[2022-12-14] MEDS: dilTIAZem HCL CD 120 MG CAP.24HR PO (10:02)
[2022-12-14 12:00] VITALS: PULSE 74
[2022-12-14 14:00] VITALS: BP 133/49; PULSE 68; RESP 16; TEMP 36.3; O2SAT 95
[2022-12-14 14:12] LABS: Anion Gap 4 mmol/L (8-16); Blood Urea Nitrogen 30 mg/dL (7-17); Calcium 8.2 mg/dL (8.4-10.2); Carbon Dioxide 24 mmol/L (22-30); Chloride 102 mmol/L (98-107); Estimated CRCL calculation 23 ml/min; Estimated Glomerular Filt Rate 36; Glucose 128 mg/dL (65-110); Potassium 4.9 mmol/L (3.4-5.0); Sodium 130 mmol/L (137-145)
--- NOTE | 2022-12-14 16:07 | PM.DS ---
DS: Admitting Diagnosis Discharge Date 12/14/22 Admitting Diagnosis Weakness DS: Discharge Diagnosis Discharge Diagnosis (1) Acute hyperkalemia: Code(s): E87.5 - Hyperkalemia Status: Acute (2) Acute kidney injury superimposed on chronic kidney disease: Code(s): N17.9 - Acute kidney failure, unspecified; N18.9 - Chronic kidney disease, unspecified Status: Acute (3) Dehydration: Code(s): E86.0 - Dehydration Status: Acute (4) Dyspepsia: Code(s): R10.13 - Epigastric pain Status: Acute (5) Hypertension: Qualifiers: Hypertension type: primary hypertension Qualified Code(s): I10 - Essential (primary) hypertension Code(s): I10 - Essential (primary) hypertension Status: Acute (6) Chronic obstructive pulmonary disease: Code(s): J44.9 - Chronic obstructive pulmonary disease, unspecified Status: Acute (7) Anemia: Code(s): D64.9 - Anemia, unspecified Status: Acute (8) Dementia: Code(s): F03.90 - Unspecified dementia, unspecified severity, without behavioral disturbance, psychotic disturbance, mood disturbance, and anxiety Status: Acute (9) Peptic ulcer disease: Code(s): K27.9 - Peptic ulcer, site unspecified, unspecified as acute or chronic, without hemorrhage or perforation Status: Acute (10) Nonerosive esophageal reflux disease: Code(s): K21.9 - Gastro-esophageal reflux disease without esophagitis Status: Acute DS: Summary Hospital Course Reason for hospitalization: 87-year-old female with history of TIA, dementia, hypertension, chronic kidney disease, COPD, GERD, hypothyroidism, and anxiety who presented to the emergency department via EMS from home for evaluation of weakness.?Please see H&P for details. Hospital Course: Patient presents with complaints of weakness. Chest x-ray showed no acute cardiopulmonary disease. White count was mildly elevated 15 this trended to normal. Hemoglobin was 12 and this dropped to the 9 range but was stable. She had severe hyperkalemia felt related to acute kidney injury. Potassium was 8.4. She had non-gap metabolic acidosis with a bicarb of 13. BUN was 71 creatinine 2.7. She is on losartan and spironolactone at home. This probably contributed to the above findings. She had hyponatremia with sodium down to 127. Sodium did improve to 130. Chart review shows that she has chronic hyponatremia. Potassium normalized. She was treated with IV fluids. BUN trend down to 30 and creatinine down to 1.4. Urinalysis was not consistent with UTI. EGD showed nonerosive reflux disease. She also had a single crated deep benign ulcer in the antrum biopsies were taken and the ulcer was injected with epinephrine. There was also a single crater benign ulcer in the duodenal bulb with a clean base. A few superficial ulcers were visualized in the 2nd part of the duodenum noted as well. Patient does take naproxen at home. Biopsy results are pending. Therapy stated patient was doing well with therapy. Home health was offered but family is considering hospice care for the patient. Hospice has been consulted and will be meeting the patient and family at home. Patient overall did well to be discharged home on 12/14/2022. Discussed with dtr by phone Status at Discharge Cognitive/behavioral status at discharge: stable Time Spent with Patient Time attestation: Total time spent providing and/or coordinating discharge services: 34 minutes Time spent: Greater than 30 minutes Exam Narrative: AF 97.4 133/49 68 16 95% ra Gen - NARD Chest - distant BS. nml RR CV - RRR S1/S2. Tele showing PVCs Abd - Soft, NT/ND, Positive BS Ext - No pedal edema Psych - Nml mood and affect Skin - Warm and dry DS: Data Data Completed and Pending Pending studies at discharge: Pending at discharge 12/13/22 12:32 Surgical [PTH] Routine Labs on day of di
--- NOTE | 2022-12-16 07:44 | PC.NURSE ---
Gastric PAth- Negative for H pylori Focal ulceration with fibropurulent exudate Mild chronic inactive gastritis. Dr. Carla dean.
== END 2022-12-14 19:20 | disposition home or self-care (01) | DRG 377 ==
LOC: ANHED 18:53 → ANH2MED 19:31 → ANH3MEDSUR 12-12 00:06
PROVIDERS: Chiropractor; Internal Medicine Gastroenterology; Physician Assistant; Preventive Medicine Aerospace Medicine; Admitting Provider Internal Medicine; Emergency Provider Emergency Medicine; PCP Physician Assistant; Visit Provider Internal Medicine
PROC: 0DJ08ZZ Inspection of Upper Intestinal Tract, Via Natural or Artificial Opening Endoscopic (ICD-10-PCS; CPT 43235; principal; 2022-12-13 12:30)
DX: K25.4 Chronic or unspecified gastric ulcer with hemorrhage (principal); N18.6 End stage renal disease; D62 Acute posthemorrhagic anemia; N17.9 Acute kidney failure, unspecified; I12.0 Hypertensive chronic kidney disease with stage 5 chronic kidney disease or end stage renal disease; J44.1 Chronic obstructive pulmonary disease with (acute) exacerbation; E87.1 Hypo-osmolality and hyponatremia; E87.5 Hyperkalemia; K21.9 Gastro-esophageal reflux disease without esophagitis; K26.9 Duodenal ulcer, unspecified as acute or chronic, without hemorrhage or perforation; T39.395A Adverse effect of other nonsteroidal anti-inflammatory drugs [NSAID], initial encounter; N18.30 Chronic kidney disease, stage 3 unspecified; E86.0 Dehydration; R10.13 Epigastric pain; D64.9 Anemia, unspecified; F03.90 Unspecified dementia, unspecified severity, without behavioral disturbance, psychotic disturbance, mood disturbance, and anxiety; F41.9 Anxiety disorder, unspecified; E03.9 Hypothyroidism, unspecified; Z96.1 Presence of intraocular lens; Z66 Do not resuscitate; Z98.42 Cataract extraction status, left eye; Z98.41 Cataract extraction status, right eye; Z90.710 Acquired absence of both cervix and uterus; Z87.891 Personal history of nicotine dependence; Z90.49 Acquired absence of other specified parts of digestive tract; Z86.73 Personal history of transient ischemic attack (TIA), and cerebral infarction without residual deficits
CPT/HCPCS: 36415; 71046; 80048; 80053; 81001; 83735; 85025; 85027; 88305; 88342; 93005; 94640; 96361; 96374; 96375; 97161; 97165; 99285; A9270; C9113; G0378; J0171; J0612; J1815; J2704; J2930; J7030; J7120

== ENCOUNTER 2025-02-20 13:34 | Outpatient (CLI) | payer MEDICARE, SELFPAY ==
--- NOTE | ~2025-02-20 | US_ITS ---
EXAMINATION: US arterial ankle brachial ind DATE: 02/20/2025 14:42 INDICATION: Peripheral vascular disease, unspecified. TECHNIQUE: Segmental pressures and plethysmographic and Doppler waveforms of the brachial and lower extremity arteries were obtained. COMPARISON: None. FINDINGS: Right and left brachial artery pressures of 150 mm Hg and 135 mm Hg, respectively, are concordant (normal difference <= 30 mmHg). The right ankle-brachial index (MARIA A) is 0.90 (normal >= 0.9-1.0). The right great toe-brachial index (TBI) is 0.41 (normal >= 0.65). Arterial Doppler waveforms are biphasic at the ankle. The left MARIA A is 1.01. The left TBI is 0.35. Arterial Doppler waveforms are biphasic at the ankle. IMPRESSION: 1. Mildly decreased right MARIA A, normal left MARIA A, and decreased bilateral TBIs, consistent with bilateral arterial occlusive disease. Note that MARIA A may be overestimated if arteries are calcified. Reviewed, dictated and finalized at location E. IMPRESSION: 1. Mildly decreased right MARIA A, normal left MARIA A, and decreased bilateral TBIs, c onsistent with bilateral arterial occlusive disease. Note that MARIA A may be overe stimated if arteries are calcified.
== END 2025-02-20 13:35 | disposition home or self-care (01) ==
DX: I73.9 Peripheral vascular disease, unspecified (principal)
CPT/HCPCS: 93922